=== PATIENT | female | born 1950 | race Caucasian/White ===

== ENCOUNTER 2017-09-19 12:32 | Emergency (ER) | payer MEDICARE, SELFPAY | END 2017-09-19 14:16 | disposition home or self-care (01) | PROVIDERS: Emergency Provider Nurse Practitioner; Family Provider Family Medicine; Visit Provider Nurse Practitioner | DX: M25.562 Pain in left knee (principal) | CPT/HCPCS: 73562; 96372; 99201 ==

== ENCOUNTER 2020-08-10 09:46 | Emergency (ER) | payer MEDICARE, SELFPAY ==
[2020-08-10 10:30] VITALS: BP 141/76; PULSE 84; RESP 18; TEMP 36.8; O2SAT 98; BMI 35.3
--- NOTE | 2020-08-10 10:48 | HMH.EDUTC ---
[facility] Disposition Clinical Impression: Exposure to COVID-19 virus Disposition: Home, Self-Care Condition on Discharge: Good Instructions: Preventing the Spread of Coronavirus Discharge Instructions Additional Instructions: Drink plenty of fluids. Take tylenol for pain or fever. Return if you begin to have difficulty breathing. Follow up with your regular doctor. GO TO THE ER FOR ANY WORSENING SYMPTOMS Referrals: Uche Shelton MD [Primary Care Provider] - Time of Disposition: 10:49 Medical Decision Making - Medical Records Medical records reviewed: No: I reviewed the patient's medical records. - Lakhwinder Inquiry Pt receiving controlled substance: No Vital Signs: 08/10/20 10:30 08/10/20 10:58 Temperature 98.2 F 98.2 F Temperature Source Oral Pulse Rate 84 Pulse Rate [Right Brachial] 84 Respiratory Rate 18 18 Blood Pressure 141/76 H Blood Pressure [Right Arm] 141/76 H Blood Pressure Mean [Right Arm] 97 Blood Pressure Source [Right Arm] Automatic Cuff Blood Pressure Position [Right Arm] Sitting 02 Sat by Pulse Oximetry 98 Oxygen Delivery Method Room Air Orders (Tests/Meds): ORDERS Category Date Time Status Covid-19 Nasal PCR ([facility]) Routine Lab 08/10/20 10:35 Ordered [facility] HPI - General Stated complaint: wants covid test Time Seen by Provider: 08/10/20 10:35 - History of Present Illness Provider Complaint: She is here wanting a covid test. She denies any exposure or symptoms, but her kids wanted him to be tested. - Related Data Allergies Allergy/AdvReac Type Severity Reaction Status Date / Time Sulfa (Sulfonamide Allergy Verified 08/10/20 10:56 Antibiotics) [facility] History - Hepatitis A Screen Attestation statement:: This patient has been screened for Hepatitis A risk factors. I have reviewed the patient's past medical history: Yes ROS Obtained: Yes All systems reviewed & no additional complaints - Constitutional Constitutional: Reports system reviewed and no additional complaints, except as docu - Eyes Eyes: Reports system reviewed and no additional complaints, except as docu - ENT Ears, Nose, Mouth, and Throat: Reports system reviewed and no additional complaints, except as docu - Cardiovascular Cardiovascular: Reports system reviewed and no additional complaints, except as docu - Respiratory Respiratory: Yes system reviewed and no additional complaints, except as docu - Gastrointestinal Gastrointestingal: Reports: system reviewed and no additional complaints, except as docu Physical Exam - General General appearance: alert, in no apparent distress - Head Head exam: atraumatic, normocephalic, normal inspection - Eye Eye exam: Present: normal appearance, PERRL, EOMI - ENT ENT exam: Present: normal exam, normal oropharynx, mucous membranes moist, TM's normal bilaterally, normal external ear exam - Neck Neck exam: Present: normal inspection, full ROM, trachea midline. Absent: meningismus, lymphadenopathy - Chest Chest inspection: Present: normal inspection, symmetric chest wall rise. Absent: tenderness - Respiratory Respiratory exam: Present: normal lung sounds bilaterally. Absent: respiratory distress - Cardiovascular Cardiovascular exam: Present: regular rate, normal rhythm. Absent: JVD - Abdominal Exam Abdominal exam: Present: soft, normal bowel sounds. Absent: distention, tenderness, guarding - Extremities Exam Extremities exam: Present: normal inspection, full ROM, normal capillary refill. Absent: calf tenderness - Back Exam Back exam: Present: normal inspection. Absent: tenderness - Neurological Exam Neurological exam: Present: alert, oriented X3 - Psychiatric Psychiatric exam: Present: normal affect, normal mood - Skin Skin exam: Present: warm, dry, intact, normal color - Lymphatic Lymphatic Findings: no adenopathy
[2020-08-10 10:58] VITALS: BP 141/76; PULSE 84; RESP 18; TEMP 36.8; O2SAT 98
== END 2020-08-10 11:00 | disposition home or self-care (01) ==
PROVIDERS: Emergency Provider Nurse Practitioner Family; PCP Family Medicine
DX: Z20.828 Contact with and (suspected) exposure to other viral communicable diseases (principal); Z88.2 Allergy status to sulfonamides
CPT/HCPCS: 99201; U0003

== ENCOUNTER → 2021-06-18 12:54 | Outpatient (CLI) | payer MEDICARE, SELFPAY ==
[2021-06-18 15:29] LABS: Basophils % 0.4 % (0.1-2.0); Eosinophils # 0.1 K/mm3 (0.0-0.4); Eosinophils % 1.4 % (0.1-12.0); Hematocrit 47.2 % (37.0-47.0); Hemoglobin 15.3 g/dL (12.2-16.2); Lymphocytes # 1.7 K/mm3 (0.7-4.5); Lymphocytes % 26.4 % (10-50); Mean Corpuscular HGB Conc 32.3 g/dL (31.8-35.4); Mean Corpuscular Hemoglobin 30.1 pg (27.0-31.2); Mean Corpuscular Volume 93.1 fl (81-99); Mean Platelet Volume 9.2 fl (7.4-10.4); Monocytes # 0.3 K/mm3 (0.1-1.0); Monocytes % 4.4 % (1.7-9.3); Neutrophils # 4.4 K/mm3 (1.8-7.8); Neutrophils % 67.3 % (37.0-80.0); Platelet Count 281 K/mm3 (142-424); Red Blood Count 5.07 M/mm3 (4.20-5.40); Red Cell Distribution Width 13.7 % (11.5-17.5); White Blood Count 6.6 K/mm3 (4.8-10.8)
[2021-06-18 15:47] LABS: Alanine Aminotransferase 36 U/L (12-78); Albumin Level 4.7 g/dl (3.5-5.0); Albumin/Globulin Ratio 1.2 (1.1-1.8); Alkaline Phosphatase 68 U/L (38-126); Anion Gap 15.2 mEq/L (5-15); Aspartate Amino Transferase 41 U/L (14-36); Bilirubin,Total 0.7 mg/dl (0.2-1.3); Blood Urea Nitrogen 15 mg/dl (7-17); Calcium 9.5 mg/dl (8.4-10.2); Carbon Dioxide 26 mmol/L (22.0-30.0); Chloride 105 mmol/L (98-107); Chol/HDL Ratio 4.4 (1-3.5); Cholesterol 189 mg/dl (140-200); Estimated Glomerular Filt Rate 71 ml/min (>60); GFR (African American) 86 ML/MIN (>60); Globulin 3.8 g/dL (1.3-3.2); Glucose 155 mg/dl (74-100); HDL Cholesterol 43 mg/dl (40-60); Potassium 4.2 mmoL/L (3.5-5.1); Sodium 142 mmol/L (136-145); Total Protein,Serum 8.5 g/dl (6.3-8.2); Triglycerides 141 mg/dl (30-150); VLDL Cholesterol 28 mg/dL (0-40)
[2021-06-18 15:58] LABS: Direct LDL Cholesterol 120.62 mg/dL (100-129)
[2021-06-18 16:04] LABS: T4 (Thyroxine) 9.4 ug/dl (5.53-11.0)
[2021-06-18 16:18] LABS: Thyroid Stimulating Hormone 3.46 uIU/mL (0.465-4.68)
== END ==
PROVIDERS: Visit Provider Family Medicine
DX: I10 Essential (primary) hypertension (principal); Z79.899 Other long term (current) drug therapy
CPT/HCPCS: 80053; 80061; 84436; 84443; 85025

== ENCOUNTER → 2021-06-25 14:01 | Outpatient (CLI) | payer MEDICARE, SELFPAY ==
[2021-06-25 14:47] LABS: Hemoglobin A1C 6.5 % (4.0-6.0)
== END ==
PROVIDERS: Visit Provider Family Medicine
DX: E11.9 Type 2 diabetes mellitus without complications (principal)
CPT/HCPCS: 83036

== ENCOUNTER → 2021-08-23 09:35 | Outpatient (CLI) | payer MEDICARE, SELFPAY ==
--- NOTE | 2021-08-23 09:39 | XR_ITS ---
PROCEDURE: XR CHEST 2V CLINICAL HISTORY: cough COMPARISON: No exams were available for comparison FINDINGS: The cardiomediastinal silhouette and pulmonary vascularity are within normal limits. The lungs are clear without infiltrates, suspicious nodules, or pleural effusions. Calcified granuloma right lower lobe superior segment. Minimal atelectatic or fibrotic change in the left mid to lower lung zone. Mild degenerative change thoracic spine IMPRESSION: No acute findings. Dictated by: Chino Naqvi MD 08/23/2021 13:21 Chino Naqvi MD in [place] 08/23/2021 13:21
== END ==
PROVIDERS: PCP Family Medicine; Visit Provider Family Medicine
DX: R05.9 Cough, unspecified (principal)
CPT/HCPCS: 71046

== ENCOUNTER → 2021-11-20 13:18 | Outpatient (CLI) | payer MEDICARE, SELFPAY ==
--- NOTE | 2021-11-20 13:19 | MM_ITS ---
PROCEDURE INFORMATION: Exam: Bilateral Screening 3D Mammography Exam date and time: 11/20/2021 1:19 PM Age: 71 years old Clinical indication: Screening mammogram TECHNIQUE: Imaging protocol: Bilateral Screening tomosynthesis and 2D mammography including computer-aided detection (CAD) when performed. COMPARISON: No relevant prior studies available. FINDINGS: MAMMOGRAPHY: Breast composition: The breast tissue is heterogeneously dense, which may obscure small masses. Mass: None. Architectural distortion: No new or suspicious architectural distortion. Calcifications: No new or suspicious calcifications are present Asymmetric density: Focal asymmetry within the middle 1/3 upper outer right breast should be further assessed with spot views in CC/MLO full lateral projection to confirm and further characterize. Ultrasound should also be performed. Skin thickening: None. Axillary adenopathy: None. IMPRESSION: Focal asymmetry within the middle 1/3 upper outer right breast should be further assessed with spot views in CC/MLO full lateral projection to confirm and further characterize. Ultrasound should also be performed. ASSESSMENT: BI-RADS category 0: Incomplete-need additional imaging evaluation and/or prior mammograms for comparison.
== END ==
PROVIDERS: PCP Family Medicine; Visit Provider Family Medicine
DX: Z12.31 Encounter for screening mammogram for malignant neoplasm of breast (principal)
CPT/HCPCS: 77063; 77067

== ENCOUNTER → 2021-12-05 14:30 | Outpatient (CLI) | payer MEDICARE, SELFPAY ==
--- NOTE | 2021-12-05 14:30 | US_ITS ---
PROCEDURE INFORMATION: Exam: US Right Breast, Complete MG Right Diagnostic Breast Tomosynthesis Exam date and time: 12/05/2021 2:31 PM Age: 71 years old Clinical indication: Patient recalled for further evaluation of right tissue asymmetry TECHNIQUE: Imaging protocol: Complete ultrasound of all four quadrants of the Right breast and the retroareolar regions, including ultrasound of the axilla when performed. Right Diagnostic tomosynthesis and 2D mammography including computer-aided detection (CAD) when performed. Unilateral or bilateral exam. COMPARISON: MG MM DIG SCREENING MAMM BI W/CAD 11/20/2021 1:16 PM FINDINGS: MAMMOGRAPHY: Digital diagnostic spot compression views of the right breast demonstrate normal overlapping fibroglandular structures without persistent mass or asymmetry identified. ULTRASOUND: Sonographic images of the right breast including the retroareolar region, all 4 quadrants and the axilla do not demonstrate any solid or cystic masses. No architectural distortion or acoustical shadowing. No skin thickening or axillary adenopathy. IMPRESSION: No mammographic or sonographic evidence of malignancy. Annual bilateral mammographic screening is recommended unless otherwise clinically indicated. ASSESSMENT: Assessment: BI-RADS Category 1: Negative
== END ==
PROVIDERS: PCP Family Medicine; Visit Provider Family Medicine
DX: R92.8 Other abnormal and inconclusive findings on diagnostic imaging of breast (principal)
CPT/HCPCS: 76641; 77061; 77065; G0279

== ENCOUNTER → 2022-06-24 13:29 | Outpatient (CLI) | payer MEDICARE, SELFPAY ==
[2022-06-24 16:05] LABS: Hemoglobin A1C 5.9 % (4.0-6.0)
== END ==
PROVIDERS: PCP Family Medicine; Visit Provider Family Medicine
DX: R73.09 Other abnormal glucose (principal)
CPT/HCPCS: 83036

== ENCOUNTER → 2023-01-20 14:36 | Outpatient (CLI) | payer MEDICARE, SELFPAY ==
[2023-01-20 14:11] LABS: Basophils % 0.4 % (0.1-2.0); Eosinophils # 0.3 K/mm3 (0.0-0.4); Eosinophils % 2.7 % (0.1-12.0); Hemoglobin 14.7 g/dL (12.2-16.2); Lymphocytes # 2.6 K/mm3 (0.7-4.5); Lymphocytes % 24.1 % (10-50); Mean Corpuscular HGB Conc 32.6 g/dL (31.8-35.4); Mean Corpuscular Hemoglobin 29.5 pg (27.0-31.2); Mean Corpuscular Volume 90.3 fl (81-99); Mean Platelet Volume 8.7 fl (7.4-10.4); Monocytes # 0.5 K/mm3 (0.1-1.0); Monocytes % 4.3 % (1.7-9.3); Neutrophils # 7.5 K/mm3 (1.8-7.8); Neutrophils % 68.5 % (37.0-80.0); Platelet Count 297 K/mm3 (142-424); Red Blood Count 4.98 M/mm3 (4.20-5.40); Red Cell Distribution Width 13.6 % (11.5-17.5)
[2023-01-20 14:23] LABS: Chloride 94 mmol/L (98-107); Potassium 3.9 mmoL/L (3.5-5.1); Sodium 138 mmol/L (136-145)
[2023-01-20 14:26] LABS: Alanine Aminotransferase 22 U/L (12-78); Albumin Level 4.1 g/dl (3.5-5.0); Albumin/Globulin Ratio 1.3 (1.1-1.8); Alkaline Phosphatase 73 U/L (38-126); Anion Gap 17.9 mEq/L (5-15); Aspartate Amino Transferase 27 U/L (14-36); Bilirubin,Total 0.6 mg/dl (0.2-1.3); Blood Urea Nitrogen 25 mg/dl (7-17); Calcium 8.9 mg/dl (8.4-10.2); Carbon Dioxide 30 mmol/L (22.0-30.0); Estimated Glomerular Filt Rate 55 ml/min (>60); GFR (African American) 66 ML/MIN (>60); Globulin 3.2 g/dL (1.3-3.2); Glucose 154 mg/dl (74-100); Total Protein,Serum 7.3 g/dl (6.3-8.2)
[2023-01-20 14:52] LABS: Thyroid Stimulating Hormone 4.35 uIU/mL (0.465-4.68)
== END ==
PROVIDERS: PCP Family Medicine; Visit Provider Family Medicine
DX: I10 Essential (primary) hypertension (principal); M15.4 Erosive (osteo)arthritis; Z20.828 Contact with and (suspected) exposure to other viral communicable diseases; Z79.899 Other long term (current) drug therapy
CPT/HCPCS: 80053; 84443; 85025

== ENCOUNTER → 2023-02-02 08:25 | Outpatient (CLI) | payer MEDICARE, SELFPAY ==
--- NOTE | 2023-02-02 08:28 | XR_ITS ---
FINAL REPORT CLINICAL HISTORY: neck pain FINDINGS: CERVICAL SPINE Five views were obtained. There is no acute fracture. There is no malalignment. There are moderate degenerative changes. There is moderate right neural foraminal narrowing at C5-C6 and C6-C7. There is mild left neural foraminal narrowing at C5-C6. IMPRESSION: Moderate degenerative change with areas of neural foraminal narrowing. Reviewed, Interpreted and Dictated by Erich Reid III, MD Transcribed by Jovani Vegas Authenticated and [facility]
--- NOTE | 2023-02-02 08:28 | MM_ITS ---
PROCEDURE INFORMATION: Exam: MG Bilateral Screening 3D Mammography Exam date and time: 02/02/2023 8:35 AM Age: 72 years old Clinical indication: Screening examination TECHNIQUE: Imaging protocol: Bilateral Screening tomosynthesis and 2D mammography including computer-aided detection (CAD) when performed. COMPARISON: 1. MG MM DIG MAMM DX UNILAT RT CAD 12/05/2021 2:31 PM 2. MG MM DIG SCREENING MAMM BI W/CAD 11/20/2021 1:16 PM 3. US BREAST RT COMPLETE 12/05/2021 2:42 PM FINDINGS: MAMMOGRAPHY: Breast composition: There are scattered areas of fibroglandular density. Mass: No suspicious masses. Architectural distortion: No suspicious distortion. Calcifications: No suspicious calcifications. Asymmetric density: None. Skin thickening: None. Axillary adenopathy: None. IMPRESSION: No mammographic evidence of malignancy. Annual screening is recommended unless otherwise clinically indicated. ASSESSMENT: BI-RADS Category 1: Negative
--- NOTE | 2023-02-02 08:28 | XR_ITS ---
FINAL REPORT TECHNIQUE: Bone mineral density was calculated of the lumbar spine and hip. CLINICAL HISTORY: osteoporosis FINDINGS: Using L1-4, the bone mineral density of the spine is 1.137 g/cm2, corresponding to T-score of 0.8. This may be falsely elevated secondary to hypertrophic changes. Using the left hip, the bone mineral density of the femoral neck is 0.923 g/cm2, corresponding to a T-score of 0.7. Using the 1/3 radius, the bone mineral density is 0.611 g/cm2, corresponding to a T-score of -1.4 NOTE: T-score: Standard deviation compared with peak bone mass of young adult mean. *Following the recommendations of the International Society of Bone densitometry, classification of hip BMD is based on the lower of two T-scores; total hip or femoral neck. IMPRESSION: Findings consistent with low bone density. FRAX was not reported because some of the T-scores are at or above -1.0 Reviewed, Interpreted and Dictated by Erich Reid III, MD Transcribed by Liz Munoz Authenticated and [facility]
== END ==
PROVIDERS: PCP Family Medicine; Visit Provider Family Medicine
DX: Z12.31 Encounter for screening mammogram for malignant neoplasm of breast (principal); M81.0 Age-related osteoporosis without current pathological fracture; M54.2 Cervicalgia
CPT/HCPCS: 72050; 77063; 77067; 77080

== ENCOUNTER → 2023-07-20 08:40 | Outpatient (CLI) | payer MEDICARE, SELFPAY ==
[2023-07-20 21:10] LABS: Alanine Aminotransferase 17 U/L (12-78); Albumin Level 4.5 g/dl (3.5-5.0); Albumin/Globulin Ratio 1.3 (1.1-1.8); Alkaline Phosphatase 65 U/L (38-126); Anion Gap 17.5 mEq/L (5-15); Aspartate Amino Transferase 27 U/L (14-36); Bilirubin,Total 0.5 mg/dl (0.2-1.3); Blood Urea Nitrogen 18 mg/dl (7-17); Calcium 9.7 mg/dl (8.4-10.2); Carbon Dioxide 28 mmol/L (22.0-30.0); Chloride 100 mmol/L (98-107); Estimated Glomerular Filt Rate 44 ml/min (>60); GFR (African American) 54 ML/MIN (>60); Globulin 3.5 g/dL (1.3-3.2); Glucose 130 mg/dl (74-100); Potassium 4.5 mmoL/L (3.5-5.1); Sodium 141 mmol/L (136-145)
[2023-07-20 21:34] LABS: Basophils # 0.1 K/mm3 (0-0.2); Basophils % 0.6 % (0.1-2.0); Eosinophils # 0.3 K/mm3 (0.0-0.4); Eosinophils % 3.3 % (0.1-12.0); Hematocrit 40.6 % (37.0-47.0); Lymphocytes # 2.1 K/mm3 (0.7-4.5); Mean Corpuscular HGB Conc 34.4 g/dL (31.8-35.4); Mean Corpuscular Hemoglobin 31.3 pg (27.0-31.2); Mean Corpuscular Volume 91.1 fl (81-99); Mean Platelet Volume 9.6 fl (7.4-10.4); Monocytes # 0.4 K/mm3 (0.1-1.0); Monocytes % 4.6 % (1.7-9.3); Neutrophils # 5.8 K/mm3 (1.8-7.8); Neutrophils % 67.6 % (37.0-80.0); Platelet Count 253 K/mm3 (142-424); Red Blood Count 4.45 M/mm3 (4.20-5.40); Red Cell Distribution Width 13.5 % (11.5-17.5); White Blood Count 8.6 K/mm3 (4.8-10.8)
[2023-07-20 21:41] LABS: Thyroid Stimulating Hormone 3.63 uIU/mL (0.465-4.68)
[2023-07-20 22:06] LABS: Hemoglobin A1C 5.9 % (4.0-6.0)
== END ==
PROVIDERS: PCP Internal Medicine; Visit Provider Internal Medicine
DX: R53.83 Other fatigue (principal); E11.9 Type 2 diabetes mellitus without complications; E55.9 Vitamin D deficiency, unspecified; Z20.828 Contact with and (suspected) exposure to other viral communicable diseases; Z79.899 Other long term (current) drug therapy
CPT/HCPCS: 80053; 82306; 83036; 84443; 85025

== ENCOUNTER → 2023-09-18 11:02 | Outpatient (CLI) | payer MEDICARE, SELFPAY ==
[2023-09-18 11:13] LABS: Microscopic, Urine URINE MICROSCOPIC (MICROSCOPIC)
[2023-09-18 11:30] LABS: Appearance,Urine CLEAR (Clear); Bilirubin,Urine Negative (Negative); Blood, Urine Negative (Negative); Color,Urine YELLOW (Yellow); Glucose,Urine (UA) Negative (Negative); Ketones,Urine Negative (Negative); Leukocyte Esterase,Urine 1+ (Negative); Nitrate,Urine Negative (Negative); Protein,Urine Negative (Negative); Urobilinogen,Urine 0.2 EU/dl (0.2)
[2023-09-18 11:40] LABS: Creatinine,Urine Random 118 mg/dL (Not Estab.); Total Protein,Urine Random < 5.0 mg/dL (0.0-12.0)
[2023-09-18 11:43] LABS: Microalbumin/Creatinine Ratio 8.2
[2023-09-18 11:53] LABS: Bacteria,Urine 2+ /lpf
[2023-09-18 12:06] LABS: Carbon Dioxide 26 mmol/L (22.0-30.0); Chloride 103 mmol/L (98-107)
[2023-09-18 12:07] LABS: Glucose 163 mg/dl (74-100)
[2023-09-18 12:08] LABS: Anion Gap 14.8 mEq/L (5-15); Blood Urea Nitrogen 20 mg/dl (7-17); Calcium 8.9 mg/dl (8.4-10.2); Estimated Glomerular Filt Rate 49 ml/min (>60); GFR (African American) 59 ML/MIN (>60); Potassium 4.8 mmoL/L (3.5-5.1); Sodium 139 mmol/L (136-145)
== END ==
PROVIDERS: PCP Internal Medicine; Visit Provider Internal Medicine Nephrology
DX: N28.9 Disorder of kidney and ureter, unspecified (principal); B96.29 Other Escherichia coli [E. coli] as the cause of diseases classified elsewhere
CPT/HCPCS: 36415; 80048; 81001; 82043; 82570; 84155; 87086

== ENCOUNTER 2023-10-08 09:00 | Outpatient (RCR) | payer MEDICARE, SELFPAY ==
--- NOTE | 2023-08-06 14:52 | HMH.PTOPEV ---
PT Outpatient Evaluation Rehab PT Outpatient Evaluation Start: 08/06/23 13:57 Freq: Status: Active Protocol: Document 08/06/23 13:57 RUBYMERLE (Rec: 08/06/23 14:52 SOL [id number]) E-signed By Staci Dutton, PT Outpatient Therapy Subjective History Subjective History Pt is a 72 y/o female who reports insidious onset of right-sided neck pain in January without known trauma or injury . Pt reports pain on the right side of her head to the base of her skull. Pt reports initially pain would come and go but it is now constant. Pt denies distal symptoms into her UE or numbness/tingling. Pt had a cervical spine xray at [facility] on 02/02/23 with impression of There is no acute fracture. There is no malalignment. There are moderate degenerative changes. There is moderate right neural foraminal narrowing at C5-C6 and C6-C7. There is mild left neural foraminal narrowing at C5-C6. Pt reports pain is aggravated by turning her head to the right, looking down and prolonged sitting/standing.Pt reports infrequent occipital headaches that are mild in nature. Pt denies light/noise sensitivity , dizziness or nausea/vomiting . Medical History: Osteoporosis, Hypertension, Pre-diabetes New diagnosis of cancer in past 12 No months? Chief Complaint Pain Symptom Type Sharp Symptoms Relieved By Rest/Positioning,Heat,Ice Symptoms Aggravated By Sitting,Standing,Physical Activity Prior Functional Limitations None Current Functional Limitations Desk Work/Reading,Driving, Sleeping,Standing,Sitting Symptom Description Constant but Variable Level of pain today (0-10) 6 Pain scale - at its best (0-10) 4 Pain scale - at its worst (0-10) 10 Cervical Eval Palpation Cervical Muscles R Cervical Paraspinal,R Upper Trapezius Cervical/Thoracic Palpation Findings Tenderness Posture Head/C-Spine Posture Sitting Position Flexed Head/C-Spine Posture Standing Position Flexed Flexibility Deficits Upper Trapezius Muscle Length (R) Mild Tightness,(L) Mild Tightness Levaetor Scapulae Muscle Length (R) Mild Tightness,(L) Mild Tightness Passive Joint Mobility Cervical PIVM Dec: R C5/6 L C5/6 R C6/7 L C6/7 R C7/T1 L C7/T1 AROM Cervical Spine Extension Active Range of 45 Motion (degrees) Cervical Spine Flexion Active Range of 45 Motion (degrees) Cervical Spine Right Lateral Flexion 40 Active Range of Motion (degrees) Cervical Spine Left Lateral Flexion 50 Active Range of Motion (degrees) Cervical Spine Right Rotation Active 40 Range of Motion (degrees) Cervical Spine Left Rotation Active 50 Range of Motion (degrees) MMT Bilateral Deltoid (C5) 5 Normal Biceps Brachii Strength Grade 5 Normal Wrist Extension Strength Grade 5 Normal Triceps Brachii Strength Grade 5 Normal Wrist Flexion Strength Grade 5 Normal Extensor Pollicis Longus Strength Grade 5 Normal Finger Abduction Strength Grade 5 Normal Altered Sensation Comment equal and intact to light touch sensation Special Test C-Spine Foraminal Compression ([place]) Positive Right Test C-spine Verterbral Accessory Movements Central P/A [place],Right P/A that Elicit Symptoms [place] C-Spine Compression Test Negative Left,Negative Right Shoulder/Elbow Eval Shoulder Objective Measurements Shoulder MMT Bilateral Lower Trapezius Strength Grade 4- Good- Middle Trapezius Strength Grade 4- Good- Rhomboids Strength Grade 4- Good- Elbow Objective Measurements Neck Disability Index Neck Disability Index Section 1: Pain Intensity The pain is fairly severe at the moment Section 2: Personal Care (washing, I can look after myself dressing, etc.) normally but it causes extra pain Section 3: Lifting I can only lift very light weights Section 4: Reading I can read as much as I want to with slight pain in my neck Section 5: Headaches I have slight headaches, which come infrequently Section 6: Concentration I can concentrate fully when I want to with slight difficulty Section 7: Work I can do most of my usual work , but no more Section 8: Driving I can drive my car as long as I want with slight pain in my neck Section 9: Sleeping My sleep is midly disturbed (1 -2 hrs sleepless) Section 10: Recreation I am able to engage in a few of my usual recreation activities because NDI Score 19 Outpatient Therapy Assessment Impairments Problems/Impairmments Palpation Tenderness,Impaired Range of Motion,Impaired Strength,Subjective C/O Pain, Impaired Self Care/Self Management Prognosis Rehab Potential Good Clinical Impression Consistent with Diagnosis Yes Short Term Goals Number of Weeks 3 Increase Range of Motion Yes: Improve cervical rot AROM by at least 5 degrees Decrease Subjective C/O Pain Yes: Improve pain at worst to 8/10 to improve overall QOL Patient to be Ind w/ HEP Yes Relay Engineer Goals Number of Weeks 6 Decreased Palpation Tenderness Yes: 09/24 TTP of C5-C7 SP/PS Increase Range of Motion Yes: Improve cervical LF & rotation to WFL Increase Strength Yes: Improve scap strength to 4-4+/5 to assist with function & posture Increase Ability to Stand Yes Return to Recreational Activities Yes: Pt will report ability to craft with pain 6/10 or less Improve Neck Disability Index Score Yes: Improve score to 14 or less to impove overall QOL Decrease Subjective C/O Pain Yes: Improve pain at worst to 6/10 to improve overall QOL Patient to be Ind w/ Advanced HEP Yes Outpatient Therapy Plan of Care Treatment Plan May Include Therapeutic Exercise Including Home Yes Exercise Program Manual Therapy Techniques Yes Neuromuscular Re-education Yes Therapeutic Activities to Return to Yes Previous Functional/Work Level ADL/Self Care Education Yes Mechanical Traction Yes Dry Needling Yes Thermal Modalities Yes Electrical Stimulation Yes Ultrasound/Phonophoresis Yes Iontophoresis Yes Massage Yes Group Therapy for Medicare Yes Eval/Re-Eval Yes Frequency Times per week 2 Duration Number of Weeks 4-6 Addendums This patient is a candidate for social No or vocational rehab? Patient/Guardian verbally acknowledges Yes understanding of treatment program and consents to further treatment? Patient/Guardian verbally acknowledges Yes understanding of diagnosis, prognosis and goals for treatment? Eval Complexity PT Charges 32948 - Low Complexity PHYSICIAN CERTIFICATION: I certify the specified therapy services for Sofie Munson are required, authorized, and reviewed every 30 days.
--- NOTE | 2023-09-08 15:23 | HMH.RHREAS ---
Rehab Reassessment Rehab OP Re-assessment Start: 08/06/23 13:57 Freq: Status: Active Protocol: Document 09/08/23 14:01 SOL (Rec: 09/08/23 15:23 SOL [id number]) E-signed By Staci Dutton PT Neck Disability Index Neck Disability Index Section 1: Pain Intensity The pain is moderate at the moment Section 2: Personal Care (washing, I can look after myself dressing, etc.) normally without causing extra pain Section 3: Lifting Pain prevents me lifting heavy weights off the floor, but I can manage Section 4: Reading I can't read as much as I want because of moderate pain in my neck Section 5: Headaches I have no headaches at all Section 6: Concentration I can concentrate fully when I want to with slight difficulty Section 7: Work I can do most of my usual work , but no more Section 8: Driving I can drive my car as long as I want with slight pain in my neck Section 9: Sleeping I have no trouble sleeping Section 10: Recreation I am able to engage in all my recreation activities with some pain in NDI Score 12 Rehab Re-assessment Subjective Subjective Pt reports her neck feels 60% improved since starting PT. Pt reports she still has right- sided neck pain when she turns her head to the right and when she looks up. Pt reports pain at worst within the last week as 8/10 on VAS scale. Pt reports headaches have improved and she has not had one in awhile. Pt denies numbness/tingling of the UE. Pt reports compliance with HEP . Objective Objective Notes TTP: R upper trapezius, R levator scapular, R SCM, C5-6, C6-7 Cervical AROM: flex 45 (p!), ext 45, RLF 45 (p!), LLF 50, Rrot 50, Lrot 60 Assessment Progress Assessment Progressing as Expected Assessment Notes Pt has attended 6 PT visits consisting of aerobic exercise , cervical mobility, cervical stretching/strengthening, postural reeducation, manual therapy and modalities with good tolerance. Pt demonstrated improved cervical AROM and NDI score this date compared to the initial evaluation. Pt continues to report cervical pain with extension and right rotation AROM.Pt would continue to benefit from skilled PT to further improve subjective report of pain, cervical AROM, posture, scapular strength, and functional activity tolerance to improve overall QOL. Patient goals met ST/3 Goals Not Met LTG Revised Goals n/a Plan Plan Continue initial POC Frequency of Therapy 2x/week Duration of therapy 4 more weeks Time and Billing Re-Eval Time 12 Re-Eval Billing Units 1 PHYSICIAN CERTIFICATION: I certify the specified therapy services for Sofie Munson are required, authorized, and reviewed every 30 days.
--- NOTE | 2023-10-08 10:53 | HMH.RHREAS ---
Rehab Reassessment Rehab OP Re-assessment Start: 08/06/23 13:57 Freq: Status: Active Protocol: Document 10/08/23 10:31 SOL (Rec: 10/08/23 10:53 SOL [id number]) E-signed By Staci Dutton PT Neck Disability Index Neck Disability Index Section 1: Pain Intensity The pain is moderate at the moment Section 2: Personal Care (washing, I can look after myself dressing, etc.) normally but it causes extra pain Section 3: Lifting I can lift heavy weights but it gives extra pain Section 4: Reading I can read as much as I want with moderate pain in my neck Section 5: Headaches I have slight headaches, which come infrequently Section 6: Concentration I can concentrate fully when I want to with no difficulty Section 7: Work I can only do my usual work, but no more Section 8: Driving I can drive my car as long as I want with slight pain in my neck Section 9: Sleeping I have no trouble sleeping Section 10: Recreation I am able to engage in all my recreation activities with some pain in NDI Score 10 Rehab Re-assessment Subjective Subjective Pt reports continued 60% improvement since starting PT overall. Pt reports continued pain of the right side of the neck that radiates behind her ear that is worse with cervical extension, right LF and B rotation. Pt reports her neck seems to hurt worse with prolonged standing. Pt reports pain is feeling a little better since last month with report of pain at worst as 3/10 on VAS scale. Pt reports compliance with HEP. Objective Objective Notes Palpation: R upper trapezius, R levator scapular, R SCM, C5- 6, C6-7 (2/4 TTP) Cervical AROM: flex 45, ext 45 (p! at 30), LLF 60, RLF 50 Scap strength: 4+/5 grossly to assist with posture/function Assessment Progress Assessment Progressing as Expected Assessment Notes Pt has attended 13 PT visits consisting of aerobic exercise , cervical mobility, cervical stretching, cervical/scapular strengthening, postural re- education, manual therapy and modalities with good tolerance . Pt demonstrated improved cervical AROM, scapular strength, and NDI score this date compared to the previous reassessment. Pt continues to demonstrate tenderness to palpation of the right-side of the cervical spine and musculature and report pain with prolonged standing and certain cervical movements. At this time, pt has met most PT goals and is appropriate to discharge to independent HEP to continue mobility, strengthening and postural exercises. Pt was encouraged to contact MD for further treatment options and possible cervical spine MRI due to continued report of pain with cervical movements and functional activities. Patient goals met LT Goals Not Met standing tolerance, tenderness to palpation Revised Goals n/a Plan Plan Discharge to independent HEP. Refer back to MD for further treatment options and cervical spine MRI. Time and Billing Re-Eval Time 10 Re-Eval Billing Units 1 PHYSICIAN CERTIFICATION: I certify the specified therapy services for Sofie Munson are required, authorized, and reviewed every 30 days.
== END 2023-10-08 10:00 | disposition home or self-care (01) ==
LOC: PT 09:00
PROVIDERS: PCP Internal Medicine; Visit Provider Internal Medicine
DX: M47.812 Spondylosis without myelopathy or radiculopathy, cervical region (principal)
CPT/HCPCS: 97010; 97014; 97035; 97110; 97140; 97163; 97164; G0283

== ENCOUNTER 2023-11-10 13:30 | Outpatient (CLI) | payer MEDICARE, SELFPAY ==
--- NOTE | 2023-11-10 13:30 | MR_ITS ---
FINAL REPORT CLINICAL HISTORY: neck pain. headache FINDINGS: Multi planar MR imaging was obtained of the cervical spine. There is abnormal decreased signal throughout the cervical discs. The vertebrae are of normal height. There is no malalignment. The cervical cord demonstrates normal signal and configuration. C2-C3: There is no evidence of significant disc bulge or protrusion. There is no significant facet hypertrophy. C3-C4: There is no evidence of significant disc bulge or protrusion. There is no significant facet hypertrophy. C4-C5: Mild diffuse disc bulge is present with mild bilateral neural foraminal narrowing. C5-C6: Moderate diffuse disc bulge and endplate hypertrophy are present. There is moderate spinal canal compromise and high-grade bilateral neural foraminal narrowing. C6-C7: Moderate diffuse disc bulge and endplate hypertrophy are present. There is moderate spinal canal compromise and high-grade bilateral neural foraminal narrowing. C7-T1: Mild to moderate diffuse disc bulge is present with moderate bilateral neural foraminal narrowing. IMPRESSION: Diffuse disc bulges at C5-6 and C6-7 with high-grade bilateral neural foraminal narrowing. Reviewed, Interpreted and Dictated by Jarrell Gordillo MD Transcribed by Liz Munoz Authenticated and [facility]
== END 2023-11-10 23:59 ==
LOC: RAD 13:30
PROVIDERS: PCP Internal Medicine; Visit Provider Internal Medicine
DX: M54.2 Cervicalgia (principal); R51.9 Headache, unspecified
CPT/HCPCS: 72141; 76376

== ENCOUNTER 2024-01-14 13:26 | Outpatient (CLI) | payer MEDICARE, SELFPAY ==
[2024-01-14 19:32] LABS: Alanine Aminotransferase 17 U/L (12-78); Albumin Level 4.2 g/dl (3.5-5.0); Albumin/Globulin Ratio 1.3 (1.1-1.8); Alkaline Phosphatase 57 U/L (38-126); Anion Gap 14.2 mEq/L (5-15); Aspartate Amino Transferase 21 U/L (14-36); Bilirubin,Total 0.9 mg/dl (0.2-1.3); Blood Urea Nitrogen 23 mg/dl (7-17); Calcium 9.7 mg/dl (8.4-10.2); Carbon Dioxide 31 mmol/L (22.0-30.0); Chloride 98 mmol/L (98-107); Chol/HDL Ratio 5.3 (1-3.5); Cholesterol 184 mg/dl (140-200); Estimated Glomerular Filt Rate 44 ml/min (>60); GFR (African American) 53 ML/MIN (>60); Globulin 3.3 g/dL (1.3-3.2); Glucose 150 mg/dl (74-100); HDL Cholesterol 35 mg/dl (40-60); Potassium 4.2 mmoL/L (3.5-5.1); Sodium 139 mmol/L (136-145); Total Protein,Serum 7.5 g/dl (6.3-8.2); Triglycerides 104 mg/dl (30-150); VLDL Cholesterol 21 mg/dL (0-40)
[2024-01-14 19:42] LABS: Direct LDL Cholesterol 117.37 mg/dL (100-129)
[2024-01-14 21:06] LABS: Hemoglobin A1C 6.1 % (4.0-6.0)
== END 2024-01-14 23:59 | disposition home or self-care (01) ==
LOC: LAB.DROPOF 01-15 13:26
PROVIDERS: PCP Internal Medicine; Visit Provider Internal Medicine
DX: E78.5 Hyperlipidemia, unspecified; R53.83 Other fatigue; R73.09 Other abnormal glucose; Z79.899 Other long term (current) drug therapy
CPT/HCPCS: 80053; 80061; 83036

== ENCOUNTER 2024-01-19 19:01 | Outpatient (CLI) | payer MEDICARE, SELFPAY ==
[2024-01-19 22:11] LABS: Creatinine,Urine Random 76 mg/dL (Not Estab.); Microalbumin < 6.000 mg/L (0-16.7)
== END 2024-01-19 23:59 | disposition home or self-care (01) ==
LOC: LAB.DROPOF 19:01
PROVIDERS: PCP Internal Medicine; Visit Provider Internal Medicine
DX: E11.9 Type 2 diabetes mellitus without complications (principal)
CPT/HCPCS: 82043; 82570

== ENCOUNTER 2024-02-24 13:48 | Outpatient (POV) | payer MEDICARE, SELFPAY ==
--- NOTE | 2024-02-24 15:34 | EXP.PAIN.OV ---
HPI Data of Consult Patient: new to practice Consult date: 02/24/24 Requesting Physician: Staci Perez APRN Primary Care Provider: Bob Weber DO Consult Narrative Reason for consult: Neck pain History of present illness: Ms. Munson is a 73 year old female who presents today as a new patient. She is a referral from Dr. Dewitt's office. Today she rates her pain a 3 out of 10 however states that will get worse as the day goes on. Patient states all of her pain is all throughout her neck and states it has been going on for over a year unrelated to any specific trauma or injury. Patient does describe this as an aching, stabbing sensation that is worse with increased activity or certain movements such as bending twisting. She does state that this interferes with her ability perform activities of daily living such as cooking or cleaning or even simple driving. Patient feels like she has to turn her whole body in order to look a certain direction due to the worsening pain. Patient did complete physical therapy just recently and stated it helped a little and that she has been better range of motion however it is still very limited turning to the right. Patient did also try yoga however felt like it did not do as well. Patient does have altered kidney function and cannot tolerate any NSAIDs. Patient has tried heat and ice and feels like the heat does better. Patient has also tried multiple topicals with minimal relief. Patient denies any prior neck surgery. Her Lakhwinder has been reviewed and is appropriate. CC: Staci Perez APRN [facility] Disclaimer: The information contained in this section may have been updated after the patient was seen, as this information can be updated by other users. Medical History Depression Sertraline is working here continue. Anxiety Patient is on sertraline and this appears to be working well for her. We will continue. Essential hypertension Blood pressure is doing well today. We will continue the hydrochlorothiazide, losartan, and metoprolol. Surgical History History of total right hip arthroplasty History of 2 sections Social History Smoking Status: Never smoker alcohol intake: never substance use type: denies use current occupational status: other Travel in the last 8 weeks: None household members: family housing: house Review of Systems Review of Systems Review of systems:: pertinent systems reviewed and negative unless documented below Review of systems (narrative): Review of Systems: General: No recent weight changes, no fever, no sleep disturbances Respiratory: No cough, no shortness of air, no recurring pulmonary infections Cardiovascular/peripheral vascular: No chest pain, no palpitations, no edema, no shortness of breath Gastrointestinal: No new onset incontinence, normal bowel movements reported Genitourinary: No new onset incontinence Musculoskeletal: Neck pain Psychiatric: [Normal mood/affect] Neurological: [Denies weakness in extremities], [denies balance issues] Meds Home Medications and Allergies Home Medications Medication Instructions Recorded Confirmed Type aspirin 81 mg tablet,delayed 81 mg PO DAILY 06/18/21 01/14/24 History release (Adult Aspirin Regimen) clobetasol 0.05 % topical cream 1 applic topical BID #30 grams 12/22/22 01/14/24 Rx sertraline 100 mg tablet See Rx Instructions .Route 07/07/23 01/14/24 Rx .COMPLEX #90 tabs famotidine 40 mg tablet See Rx Instructions .Route 12/21/23 01/14/24 Rx .COMPLEX #180 tabs hydrochlorothiazide 25 mg tablet See Rx Instructions .Route 12/21/23 01/14/24 Rx .COMPLEX #90 tabs losartan 100 mg tablet See Rx Instructions .Route 12/21/23 01/14/24 Rx .COMPLEX #90 tabs metoprolol succinate 100 mg See Rx Instructions .Route 12/21/23 01/14/24 Rx tablet,extended release 24 hr .COMPLEX #90 tabs amlodipine 10 mg tablet See Rx Instructions .Route 12/22/23 01/14/24 Rx .COMPLEX #90 tabs alendronate 70 mg tablet (Fosamax) 70 mg PO WEEKLY #12 tabs 01/14/24 01/14/24 Rx New Prescriptions to Start Prescriptions: Allergies Allergy/AdvReac Type Severity Reaction Status Date / Time Sulfa (Sulfonamide Allergy Verified 01/14/24 10:03 Antibiotics) lisinopril AdvReac Intermediate Cough Verified 01/14/24 10:03 Objective Narrative: Physical Exam: General: Alert and oriented x3, no acute distress, pleasant and cooperative Lungs: Respirations even and unlabored, symmetrical chest expansion Eyes: PERRL Musculoskeletal: Flexion and extension of cervical [spine] somewhat guarded secondary to pain, [antalgic gait noted] positive Kemps test Neurological: Speech clear, no gross sensory deficit Additional findings Additional findings: FINDINGS: Multi planar MR imaging was obtained of the cervical spine. There is abnormal decreased signal throughout the cervical discs. The vertebrae are of normal height. There is no malalignment. The cervical cord demonstrates normal signal and configuration. C2-C3: There is no evidence of significant disc bulge or protrusion. There is no significant facet hypertrophy. C3-C4: There is no evidence of significant disc bulge or protrusion. There is no significant facet hypertrophy. C4-C5: Mild diffuse disc bulge is present with mild bilateral neural foraminal narrowing. C5-C6: Moderate diffuse disc bulge and endplate hypertrophy are present. There is moderate spinal canal compromise and high-grade bilateral neural foraminal narrowing. C6-C7: Moderate diffuse disc bulge and endplate hypertrophy are present. There is moderate spinal canal compromise and high-grade bilateral neural foraminal narrowing. C7-T1: Mild to moderate diffuse disc bulge is present with moderate bilateral neural foraminal narrowing. IMPRESSION: Diffuse disc bulges at C5-6 and C6-7 with high-grade bilateral neural foraminal narrowing. Reviewed, Interpreted and Dictated by Jarrell Gordillo MD Transcribed by Liz Munoz Authenticated and . [facility] Assessment and Plan *Assessment and plan (1) Degenerative disc disease, cervical: Status: Acute Category: Medical Code(s): M50.30 - Other cervical disc degeneration, unspecified cervical region (2) Facet arthropathy, cervical: Status: Acute Category: Medical Code(s): M47.812 - Spondylosis without myelopathy or radiculopathy, cervical region Plan Patient is experiencing significant pain throughout her neck that is worse with bending, twisting or lifting. Patient did have limited range of motion of her cervical spine with a positive Kemps test. I have discussed with the patient that she may benefit from a cervical medial branch block. Risk and benefits were discussed with the patient and she would like to proceed forward with this plan of care. Patient is not on any blood thinners. I have also discussed with the patient that I will order a compounded cream for her. Patient will be scheduled for her first cervical medial branch block bilaterally C5-C6 and C6-C7 under fluoroscopy. Patient was counseled that if she does get significant relief with this injection we will look at doing it a second time and then possibly a RFA in the future. Patient is agreeable to this plan of care. Patient has tried and failed conservative therapies. Patient has been instructed to contact the clinic with any concerns before the next appointment. Dr. Ward has reviewed this note and agrees with this plan of care. This note was dictated using voice recognition software and make contain errors or omissions.
[2024-02-24 16:27] VITALS: BP 134/86; PULSE 79; RESP 18; O2SAT 94; BMI 35.8
== END 2024-02-24 23:59 | disposition home or self-care (01) ==
PROVIDERS: PCP Internal Medicine; Visit Provider Nurse Practitioner Family
DX: M50.322 Other cervical disc degeneration at C5-C6 level (principal); M47.892 Other spondylosis, cervical region
CPT/HCPCS: 99202; G0463

== ENCOUNTER 2024-03-09 08:27 | Outpatient (CLI) | payer MEDICARE, SELFPAY ==
--- NOTE | 2024-03-09 08:27 | MM_ITS ---
PROCEDURE INFORMATION: Exam: MG Bilateral Screening 3D Mammography Exam date and time: 03/09/2024 8:21 AM Age: 73 years old Clinical indication: Screening examination TECHNIQUE: Imaging protocol: Bilateral Screening tomosynthesis and 2D mammography including computer-aided detection (CAD) when performed. COMPARISON: 1. MG MM DIG SCREENING MAMM BI W/CAD 02/02/2023 8:35 AM 2. MG MM DIG MAMM DX UNILAT RT CAD 12/05/2021 2:31 PM FINDINGS: MAMMOGRAPHY: Breast composition: The breasts are heterogeneously dense, which may obscure small masses. Mass: None. Architectural distortion: None. Calcifications: No suspicious calcifications. Asymmetric density: None. Skin thickening: None. Axillary adenopathy: None. IMPRESSION: No mammographic evidence of malignancy. Annual screening is recommended unless otherwise clinically indicated. ASSESSMENT: BI-RADS Category 1: Negative
== END 2024-03-09 23:59 | disposition home or self-care (01) ==
LOC: RAD 08:27
PROVIDERS: PCP Internal Medicine; Visit Provider Internal Medicine
DX: Z12.31 Encounter for screening mammogram for malignant neoplasm of breast (principal)
CPT/HCPCS: 77063; 77067

== ENCOUNTER 2024-03-15 11:45 | Day surgery (SDC) | payer MEDICARE, SELFPAY ==
[2024-03-15 12:00] VITALS: BP 114/56; PULSE 69; RESP 16; TEMP 36.6; O2SAT 94; BMI 36.0
[2024-03-15] MEDS: methylPREDNISolone ACETATE 80MG/ML VIAL 80 MG (12:07)
[2024-03-15 12:08] VITALS: BP 131/47; PULSE 67; RESP 18; O2SAT 97
[2024-03-15] MEDS: LIDOCAINE 1% 5ML PF VIAL 5 ML (12:08)
[2024-03-15] MEDS: BUPIVACAINE 0.25% 10ML INJ 25 MG IJ (12:08)
[2024-03-15 12:09] VITALS: BP 131/47; PULSE 67; RESP 18; O2SAT 97
--- NOTE | 2024-03-15 12:10 | P.PCN_ITS ---
Procedure Date: 03/15/24 Time: 12:00 Anesthesiologist:: Satya Chong CRNA Complications:: None Pre-procedure Diagnosis:: Degenerative disc cervical spine multiple levels. Cervical radiculopathy. Disc bulge multilevel cervical spine. Post-procedure Diagnosis:: Same. Indications for Procedure:: Patient is a pleasant 73-year-old female comes our clinic today for medial branch blocks/facet injections at the cervical level C5-6, C6-7 bilaterally. Patient reports posterior cervical neck pain as well as difficulty with flexion, extension, left and right rotation of the cervical spine. She also reports some bilateral shoulder radicular symptoms at times. Patient also reports chronic h eadaches. Procedure Details:: Informed consent was obtained and the risk and benefits of the procedure was explained to the patient. Patient was taken to the procedure room where noninvasive monitors were placed, including noninvasive blood pressure cuff as well as pulse oximeter. The area over the posterior cervical spine was cleansed using chlorhexidine as a cleansing solution. I anesthetized the skin and subcutaneous tissues with 1% Lidocaine. I placed 25 -gauge spinal needles into the facet joint/ medial branches of C5-6, C6-7 bilaterally. Needle placement was confirmed with fluoroscopy. After confirmation of needle placement, each site was injected with 1 mL of 1% lidocaine and 0.25 % Marcaine and 10 mg of Depo- Medrol. A total of 20 mg of depo medrol was used for bilateral medial branch blocks of C5-6, C6-7 bilaterally. Patient tolerated the procedure without difficulty. There were no complications. Plan and Disposition:: Patient was discharged without incident.
[2024-03-15 12:30] VITALS: BP 109/40; PULSE 64; RESP 18; O2SAT 94
== END 2024-03-15 12:30 | disposition home or self-care (01) ==
PROVIDERS: PCP Internal Medicine; Visit Provider Nurse Anesthetist, Certified Registered
DX: M47.812 Spondylosis without myelopathy or radiculopathy, cervical region (principal)
CPT/HCPCS: 64490; 64491; J1010

== ENCOUNTER 2024-03-21 11:54 | Outpatient (CLI) | payer MEDICARE, SELFPAY ==
--- NOTE | 2024-03-21 12:02 | XR_ITS ---
FINAL REPORT CLINICAL HISTORY: cough, wheeze FINDINGS: 2 views of the chest were obtained . The heart is normal in size. The mediastinum is within normal limits. The lungs are clear. There is no pneumothorax. Osseous structures are unremarkable. IMPRESSION: No acute cardiopulmonary process. Reviewed, Interpreted and Dictated by Erich Reid III, MD Transcribed by Zonia Ocampo Authenticated and [facility]
[2024-03-21 18:38] LABS: Adenovirus,PCR Not Detected (NotDetected); Bordetella Pertussis Not Detected (NotDetected); Chlamydophila Pneumoniae, PCR Not Detected (NotDetected); Coronavirus 19, PCR Not Detected (NotDetected); Coronavirus 229E Not Detected (NotDetected); Coronavirus NL63 Not Detected (NotDetected); Coronavirus OC43 Not Detected (NotDetected); Coronovirus HKU1,PCR Not Detected (NotDetected); Human Metapneumovirus Not Detected (NotDetected); Influenza A, PCR Not Detected (NotDetected); Influenza AH1, 2009 Not Detected (NotDetected); Influenza AH1, PCR Not Detected (NotDetected); Influenza AH3,PCR Not Detected (NotDetected); Influenza B, PCR Not Detected (NotDetected); Mycoplasma Pneumoniae, PCR Not Detected (NotDetected); Parainfluenza 1, PCR Not Detected (NotDetected); Parainfluenza 2, PCR Not Detected (NotDetected); Parainfluenza 3, PCR Not Detected (NotDetected); Parainfluenza 4, PCR Not Detected (NotDetected); Respiratory Syncytial Virus Not Detected (NotDetected); Rhinovirus/Enterovirus Not Detected (NotDetected)
== END 2024-03-21 23:59 | disposition home or self-care (01) ==
LOC: LAB 11:57
PROVIDERS: PCP Internal Medicine; Visit Provider Family Medicine
DX: R05.9 Cough, unspecified (principal); R06.02 Shortness of breath
CPT/HCPCS: 71046; 87581; 87632; 87635; 87798

== ENCOUNTER 2024-04-07 15:17 | Outpatient (POV) | payer MEDICARE, SELFPAY ==
--- OUTSIDE RECORDS SUMMARY | 2024-04-07 15:20 | XMS_ITS ---
Author Name Jaylan Noble Address [address] [place] [id number] Organization Unknown Address [address] [place] [id number] ALLERGIES AND ADVERSE REACTIONS No information ASSESSMENT No information CHIEF COMPLAINT No information MEDICATIONS No information OBJECTIVE DATA No information PHYSICAL EXAMINATION No information TREATMENT PLAN Planned Care Start Date Provider Encounter for Check-up [id number] [facility] PROBLEMS No information RESULTS No information REVIEW OF SYSTEMS No information SUBJECTIVE DATA No information VITAL SIGNS No information
[2024-04-07 15:26] VITALS: BP 128/43; PULSE 70; RESP 16; O2SAT 96; BMI 35.4
--- NOTE | 2024-04-07 15:48 | EXP.PAIN.SOA ---
[facility] Disclaimer: The information contained in this section may have been updated after the patient was seen, as this information can be updated by other users. Medical History Depression Sertraline is working here continue. Anxiety Patient is on sertraline and this appears to be working well for her. We will continue. Essential hypertension Patient is taking amlodipine, losartan, metoprolol and hydrochlorothiazide. All of these together are helping with her hypertension. Blood pressure today was 128/70. Pressure in June was 112/64. Surgical History History of total right hip arthroplasty History of 2 sections Family History Other Unknown family medical history Social History Smoking Status: Never smoker alcohol intake: never substance use type: denies use current occupational status: retired Travel in the last 8 weeks: None household members: family housing: house PM Subjective & Objective Subjective Subjective:: Patient is a pleasant 73-year-old female who presents today for follow-up of cervical medial branch block bilaterally C5-C6 and C6-C7 on 03/15/2024. Today she rates her pain a 8 out of 10. Patient denies any new trauma or injury. She does state that she had at least 60% improvement following this injection and feels like initially it had been worn off but then she stated that she has been starting to notice additional improvement. She states the pain is definitely not as severe and not as constant. Patient has been staying very active and did yoga yesterday as well. Patient does state that she still will occasionally have some pain in and around her neck and that the compounded cream is helping. Patient feels like a lot of her pain is related to her sleeping. She states that she has a special pillow however feels like maybe this may be worsening some of her symptoms. Her Lakhwinder has been reviewed and is appropriate. Review of Systems: General: No recent weight changes, no fever, no sleep disturbances Respiratory: No cough, no shortness of air, no recurring pulmonary infections Cardiovascular/peripheral vascular: No chest pain, no palpitations, no edema, no shortness of breath Gastrointestinal: No new onset incontinence, normal bowel movements reported Genitourinary: No new onset incontinence Musculoskeletal: Neck pain Psychiatric: [Normal mood/affect] Neurological: [Denies weakness in extremities], [denies balance issues] Pain at rest (0-10 scale): 8 Objective Objective:: Physical Exam: General: Alert and oriented x3, no acute distress, pleasant and cooperative Lungs: Respirations even and unlabored, symmetrical chest expansion Eyes: PERRL Musculoskeletal: Flexion and extension of cervical [spine] somewhat guarded secondary to pain, [antalgic gait noted] Neurological: Speech clear, no gross sensory deficit Has patient had previous pain injection?: Yes Percent improvement in pain since last injection: 60% Conservative treatment options previously tried: Home exercise plan Length of treatment: Longer than 6 weeks Meds Home Medications and Allergies Home Medications Medication Instructions Recorded Confirmed Type aspirin 81 mg tablet,delayed 81 mg PO DAILY 06/18/21 04/07/24 History release (Adult Aspirin Regimen) clobetasol 0.05 % topical cream 1 applic topical BID #30 grams 12/22/22 04/07/24 Rx sertraline 100 mg tablet See Rx Instructions .Route 07/07/23 04/07/24 Rx .COMPLEX #90 tabs famotidine 40 mg tablet See Rx Instructions .Route 12/21/23 04/07/24 Rx .COMPLEX #180 tabs hydrochlorothiazide 25 mg tablet See Rx Instructions .Route 12/21/23 04/07/24 Rx .COMPLEX #90 tabs losartan 100 mg tablet See Rx Instructions .Route 12/21/23 04/07/24 Rx .COMPLEX #90 tabs metoprolol succinate 100 mg See Rx Instructions .Route 12/21/23 04/07/24 Rx tablet,extended release 24 hr .COMPLEX #90 tabs amlodipine 10 mg tablet See Rx Instructions .Route 12/22/23 04/07/24 Rx .COMPLEX #90 tabs alendronate 70 mg tablet (Fosamax) 70 mg PO WEEKLY #12 tabs 01/14/24 04/07/24 Rx amoxicillin 500 mg tablet 500 mg PO BID 7 days #14 tabs 03/21/24 04/07/24 Rx benzonatate 200 mg capsule 200 mg PO BID PRN cough #30 caps 03/21/24 04/07/24 Rx methylprednisolone 4 mg tablets in See Rx Instructions PO PER PKG DIR 03/21/24 04/07/24 Rx a dose pack (Medrol (Junior)) #21 tabs omeprazole 20 mg capsule,delayed 20 mg PO DAILY #30 caps 03/21/24 04/07/24 Rx release New Prescriptions to Start Prescriptions: Allergies Allergy/AdvReac Type Severity Reaction Status Date / Time Sulfa (Sulfonamide Allergy Verified 03/21/24 10:36 Antibiotics) lisinopril AdvReac Intermediate Cough Verified 03/21/24 10:36 Assessment and Plan *Assessment and plan (1) Facet arthropathy, cervical: Status: Acute Category: Medical Code(s): M47.812 - Spondylosis without myelopathy or radiculopathy, cervical region (2) Degenerative disc disease, cervical: Status: Acute Category: Medical Code(s): M50.30 - Other cervical disc degeneration, unspecified cervical region Plan Patient is stating that her pain is much better compared to when she initially started coming to see our office. Patient does not require any additional injection therapy at this time. I will send in a 2-week dose of tizanidine 4 mg at at bedtime and have the patient follow-up in 1 month for reevaluation of symptoms and plan of care. Patient is agreeable to this. Patient has been instructed to contact the clinic with any concerns before the next appointment. Dr. Ward has reviewed this note and agrees with this plan of care. This note was dictated using voice recognition software and make contain errors or omissions.
== END 2024-04-07 23:59 | disposition home or self-care (01) ==
PROVIDERS: PCP Internal Medicine; Visit Provider Nurse Practitioner Family
DX: M47.812 Spondylosis without myelopathy or radiculopathy, cervical region (principal); M50.30 Other cervical disc degeneration, unspecified cervical region
CPT/HCPCS: 99212; G0463

== ENCOUNTER 2024-04-12 08:51 | Observation (INO) | payer MEDICARE, SELFPAY ==
[2024-04-12] VITALS (13 sets, daily range): BP systolic 100–143; BP diastolic 40–113; PULSE 52–75; RESP 16–19; TEMP 36.6–37; O2SAT 95–99; BMI 35.4; BMI 35.6
[2024-04-12 09:14] LABS: Basophils % 0.5 % (0.1-2.0); Eosinophils # 0.2 K/mm3 (0.0-0.4); Eosinophils % 2.8 % (0.1-12.0); Hemoglobin 12.2 g/dL (12.2-16.2); Lymphocytes # 2.2 K/mm3 (0.7-4.5); Lymphocytes % 26.3 % (10-50); Mean Corpuscular HGB Conc 32.8 g/dL (31.8-35.4); Mean Corpuscular Hemoglobin 30.2 pg (27.0-31.2); Mean Corpuscular Volume 91.9 fl (81-99); Mean Platelet Volume 8.3 fl (7.4-10.4); Monocytes # 0.5 K/mm3 (0.1-1.0); Monocytes % 6.2 % (1.7-9.3); Neutrophils # 5.3 K/mm3 (1.8-7.8); Neutrophils % 64.3 % (37.0-80.0); Platelet Count 348 K/mm3 (142-424); Red Blood Count 4.03 M/mm3 (4.20-5.40); Red Cell Distribution Width 14.2 % (11.5-17.5); White Blood Count 8.3 K/mm3 (4.8-10.8)
[2024-04-12 09:19] LABS: Chloride 103 mmol/L (98-107); Sodium 139 mmol/L (136-145)
[2024-04-12 09:20] LABS: Potassium 4.1 mmoL/L (3.5-5.1)
--- NOTE | 2024-04-12 09:21 | CT_ITS ---
FINAL REPORT TECHNIQUE: Thin section axial CT with sagittal reconstruction without contrast. This study was performed with techniques to keep radiation doses as low as reasonably achievable, (ALARA). Individualized dose reduction techniques using automated exposure control or adjustment of mA and/or kV according to the patient's size were employed. CLINICAL HISTORY: frequent falls, weakness COMPARISON: None FINDINGS: No fracture is seen. Alignment is normal. No obvious bony spinal canal stenosis is present. Moderate diffuse degenerative disc disease and spondylosis. There is advanced facet arthropathy. IMPRESSION: No acute findings. Reviewed, Interpreted and Dictated by Delisa Figueroa MD Transcribed by Yamilet Burgos Authenticated and [facility]
--- NOTE | 2024-04-12 09:21 | XR_ITS ---
FINAL REPORT CLINICAL HISTORY: frequent falls, weakness COMPARISON: 03/21/2024 FINDINGS: No acute pulmonary opacity is present. There is no evidence of effusion or pneumothorax. Mediastinum is unremarkable. Heart size is normal. IMPRESSION: No acute abnormality. Reviewed, Interpreted and Dictated by Delisa Figueroa MD Transcribed by Liz Munoz Authenticated and [facility]
--- NOTE | 2024-04-12 09:21 | XR_ITS ---
FINAL REPORT CLINICAL HISTORY: frequent falls, weakness FINDINGS: Pelvis A single view was obtained. There is no acute fracture or dislocation. There are severe degenerative changes of the left hip. There are postoperative changes from right hip arthroplasty. IMPRESSION: Degenerative and postsurgical changes. Reviewed, Interpreted and Dictated by Delisa Figueroa MD Transcribed by Liz Munoz Authenticated and [facility]
--- NOTE | 2024-04-12 09:21 | CT_ITS ---
FINAL REPORT TECHNIQUE: Noncontrast exam CLINICAL HISTORY: frequent falls, weakness FINDINGS: No abnormal density is seen. Ventricles are normal. There is no hemorrhage. No mass effect is seen. There is soft tissue fullness in the right infratemporal fossa raising question of possible mass. Bone windows show no evidence of fracture. IMPRESSION: No acute findings. Possible mass in the right anterior temporal fossa. Correlation with nonemergent MR brain without and with contrast is recommended. Reviewed, Interpreted and Dictated by Delisa Figueroa MD Transcribed by Luz Trevino Authenticated and [facility]
[2024-04-12 09:22] LABS: Alanine Aminotransferase 23 U/L (12-78); Albumin Level 3.9 g/dl (3.5-5.0); Albumin/Globulin Ratio 1.3 (1.1-1.8); Alkaline Phosphatase 53 U/L (38-126); Anion Gap 11.1 mEq/L (5-15); Aspartate Amino Transferase 26 U/L (14-36); Bilirubin,Total 0.3 mg/dl (0.2-1.3); Blood Urea Nitrogen 26 mg/dl (7-17); Calcium 8.8 mg/dl (8.4-10.2); Carbon Dioxide 29 mmol/L (22.0-30.0); Creatinine Clearance Estimated 27 mL/min (50-200); Estimated Glomerular Filt Rate 18 ml/min (>60); GFR (African American) 22 ML/MIN (>60); Globulin 3.1 g/dL (1.3-3.2); Glucose 133 mg/dl (74-100); Magnesium 1.4 mg/dl (1.6-2.3)
[2024-04-12 09:29] LABS: Microscopic, Urine URINE MICROSCOPIC (MICROSCOPIC)
--- NOTE | 2024-04-12 09:33 | ECG_ITS ---
APPROVED REPORT Exam: Resting ECG HR:57 bpm ECG Measurements Heart Rate 57 AXES MD 116 P 57 QRSd 85 QRS 70 QT 409 T 58 QTc 403 Conclusion SINUS BRADYCARDIA WITH SINUS ARRHYTHMIA WITH SHORT MD INTERVAL BORDERLINE ECG Electronically signed by : SONAM WONG, 04/12/2024 16:22:11
[2024-04-12 09:34] LABS: Appearance,Urine CLEAR (Clear); Bilirubin,Urine Negative (Negative); Blood, Urine Negative (Negative); Color,Urine YELLOW (Yellow); Glucose,Urine (UA) Negative (Negative); Ketones,Urine Negative (Negative); Leukocyte Esterase,Urine 2+ (Negative); Nitrate,Urine Negative (Negative); Protein,Urine Negative (Negative); Specific Gravity, Urine <= 1.005 (1.005-1.030); Urobilinogen,Urine 0.2 EU/dl (0.2)
--- NOTE | 2024-04-12 09:38 | CT_ITS ---
FINAL REPORT CLINICAL HISTORY: Low back pain, falls COMPARISON: None FINDINGS: CT LUMBAR SPINE TECHNIQUE: Thin section axial CT with sagittal and coronal reconstructions FINDINGS: No fracture is present. There is mild dextroscoliosis. No bony canal stenosis is seen. Moderate diffuse degenerative disc disease. IMPRESSION: Negative CT evaluation of the lumbar spine for acute bony injury. This study was performed using automated techniques to achieve radiation exposure as low as reasonably achievable Reviewed, Interpreted and Dictated by Delisa Figueroa MD Transcribed by Yamilet Burgos Authenticated and [facility]
--- NOTE | 2024-04-12 09:38 | CT_ITS ---
FINAL REPORT CLINICAL HISTORY: Mid back pain, falls COMPARISON: None FINDINGS: CT THORACIC SPINE TECHNIQUE: Thin section axial CT with sagittal and coronal reconstructions. This study was performed with techniques to keep radiation doses as low as reasonably achievable, (ALARA). Individualized dose reduction techniques using automated exposure control or adjustment of mA and/or kV according to the patient's size were employed. FINDINGS: No fracture is present. Alignment is normal. No bony canal stenosis is seen. Moderate diffuse degenerative disc disease and spondylosis. IMPRESSION: Negative CT evaluation of the thoracic spine for acute bony injury. Reviewed, Interpreted and Dictated by Delisa Figueroa MD Transcribed by Yamilet Burgos Authenticated and [facility]
--- NOTE | 2024-04-12 09:39 | CT_ITS ---
FINAL REPORT TECHNIQUE: Noncontrast CT exam of the abdomen and pelvis. This study was performed with techniques to keep radiation doses as low as reasonably achievable (ALARA). Individualized dose reduction techniques using automated exposure control or adjustment of mA and/or kV according to the patient''s size were employed. CLINICAL HISTORY: diarrhea, ISIDRO COMPARISON: None FINDINGS: Abdomen: Lung bases are clear. The gallbladder is negative. Liver, spleen, pancreas and adrenal glands have a normal CT appearance in their limited unenhanced state. Bowel is unremarkable. The kidneys show no stone disease or obstruction. No obvious renal mass is present. No ureteral stones are present. Pelvis: No distal ureteral stones are seen. Bladder is unremarkable. The appendix is normal. Pelvic bowel loops are unremarkable. The uterus and ovaries are normal. There is streak artifact from right hip arthroplasty which obscures the lower right pelvis. No fluid collection or adenopathy is seen. IMPRESSION: No acute findings. Reviewed, Interpreted and Dictated by Delisa Figueroa MD Transcribed by Yamilet Burgos Authenticated and [facility]
[2024-04-12 09:40] LABS: T4 (Thyroxine) 10.7 ug/dl (5.53-11.0)
[2024-04-12 09:54] LABS: Thyroid Stimulating Hormone 5.55 uIU/mL (0.465-4.68)
--- NOTE | 2024-04-12 09:55 | ED_ITS ---
Discharge Plan Disposition Patient Disposition: Admitted Condition: Good Clinical Impressions Clinical Impression: ISIDRO (acute kidney injury), Hypomagnesemia, Falls frequently, General weakness, Acute UTI Discharge ED Provider: Staci Bray General Adult HPI General Chief complaint: Fall Stated complaint: possible dehyradration Time Seen by Provider: 04/12/24 09:05 Mode of Arrival: Wheelchair Source of Information: Patient Limitations: No Limitations Description of Symptoms (Recalled from ER Triage Doc. by RN): pt reports to ED with c/o diarrhea, dehydration, abd pain. pt reports that the past two days she has been having increased falls. pt reports she seen the pain doc on thursday and was given a new pain medication but does not remember the name. pt reports pain in bilateral knees from falling. History of Present Illness HPI narrative: This patient is a 73-year-old female with a history of depression, anxiety, GERD, CKD, and chronic neck pain presenting to the emergency department for evaluation with concern for general weakness and frequent falls. Patient reports that she saw pain management on for chronic neck pain, which has already been thoroughly worked up by her primary care provider on medical record review. She has had prior MRI that shows significant degeneration. She notes that she was started on a muscle relaxer, and on medical record review it appears she was started on tizanidine, on . Thursday, she notes she was having watery diarrhea. The diarrhea has since stopped, but she states that she feels very weak, especially in both of her legs, and she has been falling a lot. She denies any injuries from the fall, but she states she did hit her head once. She fell 8 times yesterday. She denies any pain at this time, just states overall she feels shaky. She is concerned she may be dehydrated. Related Data Home Medications Medication Instructions Recorded Confirmed aspirin 81 mg tablet,delayed 81 mg PO DAILY 06/18/21 04/12/24 release (Adult Aspirin Regimen) Previous Rx's Medication Instructions Recorded clobetasol 0.05 % topical cream 1 applic topical BID #30 grams 12/22/22 sertraline 100 mg tablet See Rx Instructions .Route 07/07/23 .COMPLEX #90 tabs famotidine 40 mg tablet See Rx Instructions .Route 12/21/23 .COMPLEX #180 tabs hydrochlorothiazide 25 mg tablet See Rx Instructions .Route 12/21/23 .COMPLEX #90 tabs losartan 100 mg tablet See Rx Instructions .Route 12/21/23 .COMPLEX #90 tabs metoprolol succinate 100 mg See Rx Instructions .Route 12/21/23 tablet,extended release 24 hr .COMPLEX #90 tabs amlodipine 10 mg tablet See Rx Instructions .Route 12/22/23 .COMPLEX #90 tabs alendronate 70 mg tablet (Fosamax) 70 mg PO WEEKLY #12 tabs 01/14/24 amoxicillin 500 mg tablet 500 mg PO BID 7 days #14 tabs 03/21/24 benzonatate 200 mg capsule 200 mg PO BID PRN cough #30 caps 03/21/24 methylprednisolone 4 mg tablets in See Rx Instructions PO PER PKG DIR 03/21/24 a dose pack (Medrol (Junior)) #21 tabs omeprazole 20 mg capsule,delayed 20 mg PO DAILY #30 caps 03/21/24 release baclofen 5 mg tablet 5 mg PO HS #14 tabs 04/07/24 Allergies Allergy/AdvReac Type Severity Reaction Status Date / Time Sulfa (Sulfonamide Allergy Verified 03/21/24 10:36 Antibiotics) lisinopril AdvReac Intermediate Cough Verified 03/21/24 10:36 PFSH PFSH Disclaimer: The information contained in this section may have been updated after the patient was seen, as this information can be updated by other users. Medical History Depression Anxiety Essential hypertension Surgical History History of total right hip arthroplasty History of 2 sections Family History Other Unknown family medical history Social History Smoking Status: Never smoker alcohol intake: never substance use type: denies use current occupational status: retired Travel in the last 8 weeks: None household members: family housing: house ROS Obtained: Yes All systems reviewed & no additional complaints except as documented Physical Exam General General appearance: alert and in no apparent distress Head Head exam: atraumatic and normocephalic Eye Eye exam: Present normal appearance, PERRL and EOMI ENT ENT exam: Present normal exam, normal oropharynx, mucous membranes moist and normal external ear exam Neck Neck exam: Present normal inspection, full ROM and trachea midline; Absent tenderness Chest Chest inspection: Present normal inspection and symmetric chest wall rise; Absent tenderness Respiratory Respiratory exam: Present normal lung sounds bilaterally; Absent respiratory distress, wheezes, stridor or accessory muscle use Cardiovascular Cardiovascular exam: Present regular rate and normal rhythm Abdominal Exam Abdominal exam: Present soft; Absent distention, tenderness or guarding Extremities Exam Extremities exam: Present normal inspection, full ROM and normal capillary refill; Absent tenderness or edema Back Exam Back exam: Present normal inspection and full ROM; Absent tenderness Neurological Exam Neurological exam: Present alert, oriented X3 and CN II-XII intact; Absent normal gait (Generally weak requiring some assistance to ambulate) or motor sensory deficit (Generally weak with no focal deficits) Psychiatric Psychiatric exam: Present normal affect and normal mood Skin Skin exam: Present warm and dry Medical Decision Making Medical Records Medical records reviewed: Yes I reviewed the patient's medical records. Lakhwinder Inquiry Pt receiving controlled substance: No Vital Signs: 04/12/24 08:54 04/12/24 10:34 04/12/24 10:59 Temperature 98.6 F Temperature Source Oral Pulse Rate 63 57 L Pulse Rate [Left Radial] 75 Respiratory Rate 19 Blood Pressure 121/43 L Blood Pressure [Right Arm] 111/75 Blood Pressure Mean 69 Blood Pressure Mean [Right Arm] 87 02 Sat by Pulse Oximetry 98 98 97 Oxygen Delivery Method Room Air 04/12/24 11:01 04/12/24 11:43 04/12/24 11:50 Temperature Temperature Source Pulse Rate 58 L 65 56 L Pulse Rate [Left Radial] Respiratory Rate Blood Pressure 122/40 L 131/113 H 143/96 H Blood Pressure [Right Arm] Blood Pressure Mean Blood Pressure Mean [Right Arm] 02 Sat by Pulse Oximetry 95 97 97 Oxygen Delivery Method Room Air Room Air Room Air 04/12/24 12:01 04/12/24 13:00 04/12/24 14:01 Temperature Temperature Source Pulse Rate 52 L 59 L 71 Pulse Rate [Left Radial] Respiratory Rate Blood Pressure 131/92 H 122/75 100/81 L Blood Pressure [Right Arm] Blood Pressure Mean Blood Pressure Mean [Right Arm] 02 Sat by Pulse Oximetry 99 97 98 Oxygen Delivery Method Room Air 04/12/24 15:02 Temperature Temperature Source Pulse Rate 64 Pulse Rate [Left Radial] Respiratory Rate Blood Pressure 140/65 Blood Pressure [Right Arm] Blood Pressure Mean Blood Pressure Mean [Right Arm] 02 Sat by Pulse Oximetry 98 Oxygen Delivery Method Lab Data Lab results reviewed: Yes I reviewed the patient's lab results. Lab Results 04/12/24 09:02: WBC 8.3, RBC 4.03 L, Hgb 12.2, Hct 37.0, MCV 91.9, MCH 30.2, MCHC 32.8, RDW 14.2, Plt Count 348, MPV 8.3, Neut % (Auto) 64.3, Lymph % (Auto) 26.3, [place] % (Auto) 6.2, Eos % (Auto) 2.8, Baso % (Auto) 0.5, Neut # (Auto) 5.3, Lymph # (Auto) 2.2, [place] # (Auto) 0.5, Eos # (Auto) 0.2, Baso # (Auto) 0.0, Sodium 139, Potassium 4.1, Chloride 103, Carbon Dioxide 29, Anion Gap 11.1, BUN 26 H, Creatinine 2.60 H, Estimated Creat Clear 27, Estimated GFR 18 L*, Est GFR ( Amer) 22 L, Glucose 133 H, Calcium 8.8, Magnesium 1.4 L, Total Bilirubin 0.3, AST 26, ALT 23, Alkaline Phosphatase 53, Total Protein 7.0, Albumin 3.9, Globulin 3.1, Albumin/Globulin Ratio 1.3, TSH 5.55 H, Thyroxine (T4) 10.7 04/12/24 09:26: Urine Color Yellow, Urine Appearance Clear, Urine pH 7.0, Ur Specific [place] <= 1.005, Urine Protein Negative, Urine Glucose (UA) Negative, Urine Ketones Negative, Urine Blood Negative, Urine Nitrate Negative, Urine Bilirubin Negative, Urine Urobilinogen 0.2, Ur Leukocyte Esterase 2+ A, Urine RBC None, Urine WBC 10-20, Ur Squamous Epith Cells 5-10, Urine Bacteria 2+ 04/12/24 13:50: Sodium 141, Potassium 3.9, Chloride 107, Carbon Dioxide 28, Anion Gap 9.9, BUN 22 H, Creatinine 2.10 H, Estimated Creat Clear 34, Estimated GFR 23 L, Est GFR ( Amer) 28 L D, Glucose 130 H, Calcium 8.2 L 04/12/24 09:02 04/12/24 13:50 Orders (Tests/Meds): ED MEDICATIONS Generic Name Dose Route Start Last Admin Trade Name Rahat PRN Reason Stop Dose Admin Lactated Ringer's 1,000 mls @ 75 mls/hr 04/12/24 15:45 Lactated Ringer's 1000 Ml Bag IV 04/13/24 05:04 .[id number] GILES Discontinued Medications Generic Name Dose Route Start Last Admin Trade Name Freq PRN Reason Stop Dose Admin Magnesium Sulfate 2 gm in 50 mls @ 50 mls/hr 04/12/24 09:39 04/12/24 09:59 Magnesium Sulfate 2gm/50ml Premix IV 04/12/24 10:38 50 mls/hr ONCE ONE Administration Lactated Ringer's 1,000 mls @ 999 mls/hr 04/12/24 09:40 04/12/24 09:59 Lactated Ringer's 1000 Ml Bag IV 04/12/24 10:40 999 mls/hr .Q1H1M ONE Administration Lactated Ringer's 1,000 mls @ 999 mls/hr 04/12/24 11:25 04/12/24 11:46 Lactated Ringer's 1000 Ml Bag IV 04/12/24 12:25 Not Given .Q1H1M ONE Sodium Chloride 1,000 mls @ 999 mls/hr 04/12/24 11:26 04/12/24 11:49 Sod Chlor 0.9% 1000ml Bag IV 04/12/24 12:26 999 mls/hr .Q1H1M ONE Administration Ceftriaxone Sodium 2 gm/ 100 mls @ 200 mls/hr 04/12/24 11:27 04/12/24 11:48 Sodium Chloride IV 04/12/24 11:56 200 mls/hr ONCE ONE Administration ORDERS Category Date Time Status CT abdomen pelvis wo con Stat Cat Scan 04/12/24 09:[address] cervical spine wo con Stat Cat Scan 04/12/24 09:[address] head/brain wo con Stat Cat Scan 04/12/24 09:[address] lumbar spine wo con Stat Cat Scan 04/12/24 09:[address] thoracic spine wo con Stat Cat Scan 04/12/24 09:38 Completed CXR --portable [XR chest portable] Stat Exams 04/12/24 09:21 Completed Pelvis XR 1-2 views [XR pelvis 1-2V] Stat Exams 04/12/24 09:21 Completed BMP [Basic Metabolic Panel] Stat Lab 04/12/24 13:50 Completed Complete Blood Count Auto Diff AMLAB Lab 04/13/24 06:00 Ordered Complete Blood Count Auto Diff Stat Lab 04/12/24 09:02 Completed Comprehensive Metabolic Panel AMLAB Lab 04/13/24 06:00 Ordered Comprehensive Metabolic Panel Stat Lab 04/12/24 09:02 Completed MAG [Magnesium] Stat Lab 04/12/24 09:02 Completed Magnesium AMLAB Lab 04/13/24 06:00 Ordered T4 (Thyroxine) Stat Lab 04/12/24 09:02 Completed TSH [Thyroid Stimulating Hormone] Stat Lab 04/12/24 09:02 Completed UA [Urinalysis and Microscopic] Stat Lab 04/12/24 09:26 Completed Urine Culture Stat Micro 04/12/24 09:26 Received ECG Data Tracing #1: I reviewed this ECG and interpreted as documented below: Sinus bradycardia with a ventricular rate of 57 beats per minute. No acute ST changes concerning for ischemia. Normal axis and intervals. ECG initial impression date: 04/12/24 ECG initial impression time: 09:38 Medical Decision Narrative: In summary, this patient is a 73-year-old female presenting to the Emergency Department for evaluation of general weakness and frequent falls after recent initiation of tizanidine as well as recent bout of diarrhea. Differential diagnoses considered include but are not limited to dehydration, ISIDRO, electrolyte derangements, viral syndrome, UTI, colitis, gastroenteritis, traumatic injuries from fall. Ruling out the most morbid conditions drove assessment. It should be noted patient's history includes CKD which may or may not be at goal therapy. This complicates all aspects of care by increasing patient's risk for morbidity. On exam, the patient is well-appearing. She has normal vital signs on cardiac telemetry. No focal neurologic deficits, but overall she is generally weak. Workup included CBC, CMP, TSH, T4, magnesium, urinalysis, CT head, CT spines, and CT abdomen pelvis without IV contrast. She was given a bolus of IV fluids I independently interpreted CT scans prior to the radiologist read and noted no obvious traumatic injury and no obvious obstructive ureteral stone. Please see their read for final interpretation. Labs were obtained that demonstrated ISIDRO with creatinine of 2.6 up from a baseline of 1.2. Magnesium is low, so IV replacement was ordered. She has concerns for urinary tract infection, so IV Rocephin was administered. At 1125, patient was placed in ED observation status pending additional IV fluids, Rocephin to treat urinary tract infection, and repeat BMP for evaluation. Will ambulate the patient to see if she is feeling better afterward to determine whether or not the patient would be appropriate for discharge versus admission. The patient was provided serial reevaluations and cardiac monitoring while awaiting ultimate disposition. On multiple subsequent reassessments, the patient is resting comfortably with normal vital signs on cardiac telemetry. She is able to ambulate to the restroom but is very unsteady and requires some assistance and monitoring. On repeat BMP, kidney function improved from creatinine of 2.6-2.1. Ultimately patient and family do not feel comfortable with discharge, and she still very unsteady on her feet. Given this, I feel that she would benefit from admission for continued monitoring and fluid resuscitation. Decision to admit was made at 1530 after 4 hours and 5 minutes in ED observation. I had an interactive discussion with Dr. Morrow who admitted the patient. Critical Care Critical Care Time Critical Care Time: No
[2024-04-12 09:58] LABS: Bacteria,Urine 2+ /lpf
[2024-04-12] MEDS: LACTATED RINGERS 1000ML 1,000 ML 999 ML IV (09:59)
[2024-04-12] MEDS: MAGNESIUM SULFATE IN WATER 2 GM/50 ML PIGGYBACK IV (09:59)
--- NOTE | 2024-04-12 10:58 | PC.NURSE ---
rounded on pt, adjusted bp cuff.
[2024-04-12] MEDS: CEFTRIAXONE SODIUM 2 GM in 0.9 % SODIUM CHLORIDE 100 ML IV (11:48)
[2024-04-12] MEDS: 0.9 % SODIUM CHLORIDE 1000ML 1,000 ML 999 ML IV (11:49)
--- NOTE | 2024-04-12 13:18 | PC.NURSE ---
patient given sandwich and chips and drink at this time.
[2024-04-12 14:21] LABS: Chloride 107 mmol/L (98-107); Potassium 3.9 mmoL/L (3.5-5.1); Sodium 141 mmol/L (136-145)
[2024-04-12 14:24] LABS: Anion Gap 9.9 mEq/L (5-15); Blood Urea Nitrogen 22 mg/dl (7-17); Calcium 8.2 mg/dl (8.4-10.2); Carbon Dioxide 28 mmol/L (22.0-30.0); Creatinine Clearance Estimated 34 mL/min (50-200); Estimated Glomerular Filt Rate 23 ml/min (>60); GFR (African American) 28 ML/MIN (>60); Glucose 130 mg/dl (74-100)
--- NOTE | 2024-04-12 15:30 | PC.NURSE ---
call made to house painter for bed placement
--- NOTE | 2024-04-12 15:46 | PC.NURSE ---
report called to vashti on second floor
[2024-04-12] MEDS: LACTATED RINGERS 1000ML 1,000 ML 75 ML IV (16:28)
--- NOTE | 2024-04-12 18:09 | EXP.HP ---
History of Present Illness *Admission Date: 04/12/24 *Reason for visit:: Falling, diarrhea *History of present illness: Ms. Munson is a 73-year-old female with history of hypertension, neck pain, arthritis, GERD. Reports she came to the ER because of development of diarrhea since Thursday. Concern for dehydration and falling at home. She has had increased falls over the past 24 hours and fell 8 times yesterday. Saw her pain doctor on Thursday and was given muscle relaxer. Has felt more weak since. Has had increased somnolence and been hard to wake per her report. Has degenerative disease in her neck shown on prior MRI. States she started the muscle relaxer on Thursday. Appears to be baclofen from her chart review. Has had symptoms consistent with enteritis versus medication side effect since. On presentation to the ER today, workup concerning for finding of UTI with grossly abnormal urinalysis. Labs concerning for electrolyte disturbances and ISIDRO. Medicine consulted for admission and further management. Patient quite weak, needs therapy eval. On evaluation after arriving to the floor. Is stable on room air. Alert and oriented x 4. Eating dinner on interview. Sister at bedside. Denies any chest pain, shortness of breath, nausea or vomiting. No fevers. [facility] Disclaimer: The information contained in this section may have been updated after the patient was seen, as this information can be updated by other users. Medical History Depression Anxiety Essential hypertension Surgical History History of total right hip arthroplasty History of 2 sections Family History Other Unknown family medical history Social History (Updated 04/12/24 @ 16:02 by Manasa Sweeney RN) Smoking Status: Never smoker alcohol intake: never substance use type: denies use current occupational status: retired Travel in the last 8 weeks: None household members: family housing: house Review of Systems Review of Systems Review of systems (narrative): 14 point review of systems performed, pertinent positives and negatives as per HPI Meds Home Medications and Allergies Home Medications Medication Instructions Recorded Confirmed Type aspirin 81 mg tablet,delayed 81 mg PO DAILY 06/18/21 04/12/24 History release (Adult Aspirin Regimen) alendronate 70 mg tablet (Fosamax) 70 mg PO WEEKLY #12 tabs 01/14/24 04/12/24 Rx omeprazole 20 mg capsule,delayed 20 mg PO DAILY #30 caps 03/21/24 04/12/24 Rx release baclofen 5 mg tablet 5 mg PO HS #14 tabs 04/07/24 04/12/24 Rx amlodipine 10 mg tablet 10 mg PO DAILY 04/12/24 04/12/24 History famotidine 40 mg tablet 40 mg PO BID 04/12/24 04/12/24 History hydrochlorothiazide 25 mg tablet 25 mg PO DAILY 04/12/24 04/12/24 History losartan 100 mg tablet 100 mg PO DAILY 04/12/24 04/12/24 History metoprolol succinate 100 mg 100 mg PO DAILY 04/12/24 04/12/24 History tablet,extended release 24 hr New Prescriptions to Start Prescriptions: Allergies Allergy/AdvReac Type Severity Reaction Status Date / Time Sulfa (Sulfonamide Allergy Verified 03/21/24 10:36 Antibiotics) lisinopril AdvReac Intermediate Cough Verified 03/21/24 10:36 Exam Data for Last 24 hours Vital signs and Labs for Last 24 Hours: Temp Pulse Resp BP Pulse Ox O2 Del Method 98 F 68 18 116/61 98 Room Air 04/12/24 16:00 04/12/24 16:00 04/12/24 16:00 04/12/24 16:00 04/12/24 16:00 04/12/24 17:00 Laboratory Results - last 24 hr 04/12/24 09:02: WBC 8.3, RBC 4.03 L, Hgb 12.2, Hct 37.0, MCV 91.9, MCH 30.2, MCHC 32.8, RDW 14.2, Plt Count 348, MPV 8.3, Neut % (Auto) 64.3, Lymph % (Auto) 26.3, [place] % (Auto) 6.2, Eos % (Auto) 2.8, Baso % (Auto) 0.5, Neut # (Auto) 5.3, Lymph # (Auto) 2.2, [place] # (Auto) 0.5, Eos # (Auto) 0.2, Baso # (Auto) 0.0, Sodium 139, Potassium 4.1, Chloride 103, Carbon Dioxide 29, Anion Gap 11.1, BUN 26 H, Creatinine 2.60 H, Estimated Creat Clear 27, Estimated GFR 18 L*, Est GFR ( Amer) 22 L, Glucose 133 H, Calcium 8.8, Magnesium 1.4 L, Total Bilirubin 0.3, AST 26, ALT 23, Alkaline Phosphatase 53, Total Protein 7.0, Albumin 3.9, Globulin 3.1, Albumin/Globulin Ratio 1.3, TSH 5.55 H, Thyroxine (T4) 10.7 04/12/24 09:26: Urine Color Yellow, Urine Appearance Clear, Urine pH 7.0, Ur Specific [place] <= 1.005, Urine Protein Negative, Urine Glucose (UA) Negative, Urine Ketones Negative, Urine Blood Negative, Urine Nitrate Negative, Urine Bilirubin Negative, Urine Urobilinogen 0.2, Ur Leukocyte Esterase 2+ A, Urine RBC None, Urine WBC 10-20, Ur Squamous Epith Cells 5-10, Urine Bacteria 2+ 04/12/24 13:50: Sodium 141, Potassium 3.9, Chloride 107, Carbon Dioxide 28, Anion Gap 9.9, BUN 22 H, Creatinine 2.10 H, Estimated Creat Clear 34, Estimated GFR 23 L, Est GFR ( Amer) 28 L D, Glucose 130 H, Calcium 8.2 L I & O for Last 24 hours: Intake & Output 04/09/24 04/10/24 04/11/24 04/12/24 23:59 23:59 23:59 23:59 Output Total 0 / 0 Balance 0 / 0 Weight 88.507 kg Constitutional Constitutional: no acute distress, obese, chronically ill appearing and cooperative *Routine HEENT Exam Head: Present normocephalic Eye: Present EOMI and PERRL ENT: Present mucous membranes moist Comments: Edentulous *Routine Neck Exam Neck: Present supple; Absent lymphadenopathy *Routine Respiratory Exam Respiratory: Present CTA bilaterally; Absent respiratory distress, rhonchi, stridor, wheezes or crackles *Routine Cardiovascular Exam Cardiovascular: Present RRR *Routine Abdominal Exam Abdominal: Present soft and normoactive bowel sounds; Absent tenderness *Routine Rectal Exam Rectal:: deferred *Routine Genitalia Exam Genitalia:: deferred *Routine Extremities Exam Extremities: Absent cyanosis, clubbing or edema *Routine Skin Exam Skin: Present intact and warm; Absent rash *Routine Neurological Exam Neurological: Present alert, oriented X3 and moving all extremities; Absent altered mental status Routine Psychiatric Exam Psychiatric: Present normal affect Assessment and Plan *Assessment and plan (1) ISIDRO (acute kidney injury): Status: Acute Category: Medical Code(s): N17.9 - Acute kidney failure, unspecified (2) Acute UTI: Status: Acute Category: Medical Code(s): N39.0 - Urinary tract infection, site not specified (3) General weakness: Status: Acute Category: Medical Code(s): R53.1 - Weakness (4) Falls frequently: Status: Acute Category: Medical Code(s): R29.6 - Repeated falls (5) Chronic kidney disease, stage 3a: Problem Comment: Will follow this closely. Patient has been stable over the last few lab draws. Status: Acute Category: Medical Code(s): N18.31 - Chronic kidney disease, stage 3a (6) Essential hypertension: Problem Comment: Patient is taking amlodipine, losartan, metoprolol and hydrochlorothiazide. All of these together are helping with her hypertension. Blood pressure today was 128/70. Pressure in June was 112/64. Status: Acute Category: Medical Code(s): I10 - Essential (primary) hypertension (7) Depression: Problem Comment: Sertraline is working here continue. Status: Acute Qualifiers: Depression Type: unspecified Qualified Code(s): F32.A - Depression, unspecified Category: Medical Code(s): F32.9 - Major depressive disorder, single episode, unspecified (8) Hypomagnesemia: Status: Acute Category: Medical Code(s): E83.42 - Hypomagnesemia Plan 73-year-old female with diarrhea over the past 4 days, developed weakness, falling. Brought to the ER. Found to have UTI and ISIDRO. Discussed case with ER physician, request admission for fluid rehydration, treatment of UTI, and therapy eval. I agreed to admit for further management. Tolerating dinner on my evaluation at time of admission. Problems addressed as follows: ISIDRO Hypomagnesemia -Prerenal with creatinine 2.6, BUN 26. Magnesium 1.4. Patient has continued to take her blood pressure meds. Likely component of injury from her ARB as well. -Holding blood pressure medications. Fluid resuscitating with 2 L bolus fluids. Will continue 1 L LR at 75 cc an hour overnight. Tolerating p.o. fluids. -Repeat CBC, CMP, magnesium ordered for the morning. -Magnesium replacement with 2 g IV x 1 UTI: Urinalysis grossly abnormal with leukesterase and bacteria. 2 g ceftriaxone IV x 1 in the ER. Urine culture pending. Hypertension: On HCTZ, losartan, amlodipine, metoprolol at home. Hold blood meds in the weakness, falls, ISIDRO and normotension. Frequent falling: PT and OT to of the morning. Suspect she has been falling because of weakness from dehydration from diarrhea and low blood pressure from her blood pressure meds along with the initiation of muscle relaxer on Thursday. Will hold baclofen at this time. Further recommendations pending PT/OT. Continue home famotidine and omeprazole for GERD. Full code Cardiac diet Heparin subcu 5000 units 3 times daily
[2024-04-12] MEDS: HEPARIN SODIUM 5,000 UNIT/ML VIAL 5000 UNIT SQ (20:57)
[2024-04-12] MEDS: PANTOPRAZOLE 40MG TABLET 40 MG PO (20:58)
--- NOTE | 2024-04-13 03:28 | PC.NURSE ---
Pt is alert and oriented x4 and currently tolerating RA well. Pt has had no complaints this shift, pt denies pain. Pt has a Hx of falls and was advised to ask for help when up to bathroom. Pt bed alarm on and working. Pt has slept well this shift and no other acutre changes are noted.
[2024-04-13 04:00] VITALS: BP 128/62; PULSE 72; RESP 16; TEMP 36.9; O2SAT 98; BMI 36.1
[2024-04-13 07:48] LABS: Basophils % 0.3 % (0.1-2.0); Eosinophils # 0.2 K/mm3 (0.0-0.4); Eosinophils % 4.1 % (0.1-12.0); Hematocrit 33.3 % (37.0-47.0); Hemoglobin 11.1 g/dL (12.2-16.2); Lymphocytes # 1.8 K/mm3 (0.7-4.5); Lymphocytes % 34.7 % (10-50); Mean Corpuscular HGB Conc 33.4 g/dL (31.8-35.4); Mean Corpuscular Volume 92.7 fl (81-99); Monocytes # 0.3 K/mm3 (0.1-1.0); Monocytes % 6.3 % (1.7-9.3); Neutrophils # 2.8 K/mm3 (1.8-7.8); Neutrophils % 54.6 % (37.0-80.0); Platelet Count 258 K/mm3 (142-424); Red Blood Count 3.59 M/mm3 (4.20-5.40); Red Cell Distribution Width 14.3 % (11.5-17.5); White Blood Count 5.2 K/mm3 (4.8-10.8)
[2024-04-13 07:56] LABS: Alanine Aminotransferase 23 U/L (12-78); Albumin Level 3.3 g/dl (3.5-5.0); Albumin/Globulin Ratio 1.3 (1.1-1.8); Alkaline Phosphatase 47 U/L (38-126); Anion Gap 11.2 mEq/L (5-15); Aspartate Amino Transferase 26 U/L (14-36); Bilirubin,Total 0.2 mg/dl (0.2-1.3); Blood Urea Nitrogen 21 mg/dl (7-17); Calcium 8.7 mg/dl (8.4-10.2); Carbon Dioxide 26 mmol/L (22.0-30.0); Chloride 105 mmol/L (98-107); Creatinine Clearance Estimated 42 mL/min (50-200); Estimated Glomerular Filt Rate 30 ml/min (>60); GFR (African American) 36 ML/MIN (>60); Globulin 2.6 g/dL (1.3-3.2); Glucose 127 mg/dl (74-100); Magnesium 1.5 mg/dl (1.6-2.3); Potassium 4.2 mmoL/L (3.5-5.1); Sodium 138 mmol/L (136-145); Total Protein,Serum 5.9 g/dl (6.3-8.2)
[2024-04-13 08:00] VITALS: BP 162/82; PULSE 77; RESP 20; TEMP 36.6; O2SAT 100
--- NOTE | 2024-04-13 08:17 | HMH.PHAINT1 ---
Pharmacy Intervention Comments: home medication list verified using list from outpatient pharmacy
--- NOTE | 2024-04-13 08:21 | P.DS_ITS ---
General Admission date:: 04/12/24 Discharge date: 04/13/24 HPI HPI HPI: Ms. Munson is a 73-year-old female with history of hypertension, neck pain, arthritis, GERD. Reports she came to the ER because of development of diarrhea since Thursday. Concern for dehydration and falling at home. She has had increased falls over the past 24 hours and fell 8 times yesterday. Saw her pain doctor on Thursday and was given muscle relaxer. Has felt more weak since. Has had increased somnolence and been hard to wake per her report. Has degenerative disease in her neck shown on prior MRI. States she started the muscle relaxer on Thursday. Appears to be baclofen from her chart review. Has had symptoms consistent with enteritis versus medication side effect since. On presentation to the ER today, workup concerning for finding of UTI with grossly abnormal urinalysis. Labs concerning for electrolyte disturbances and ISIDRO. Medicine consulted for admission and further management. Patient quite weak, needs therapy eval. On evaluation after arriving to the floor. Is stable on room air. Alert and oriented x 4. Eating dinner on interview. Sister at bedside. Denies any chest pain, shortness of breath, nausea or vomiting. No fevers. Hospital Course Hospital Course Hospital Course: 73-year-old female with diarrhea over the past 4 days, developed weakness, falling. Brought to the ER. Found to have UTI and ISIDRO. Discussed case with ER physician, request admission for fluid rehydration, treatment of UTI, and therapy eval. I agreed to admit for further management. Tolerating p.o. intake. Responded well to IV fluids. Worked with therapy, at baseline level of function. Recommended using a cane when she gets around the house or when she is out and about. Will continue antibiotics for UTI. Stable to discharge home with close follow-up with PCP for repeat labs. Problems addressed as follows: ISIDRO Hypomagnesemia -Prerenal with creatinine 2.6, BUN 26. Magnesium 1.4. Patient has continued to take her blood pressure meds prior to admission. Likely component of injury from her ARB as well. Held her blood pressure meds during admission. Administered IV fluids in the ER and overnight. Showed improvement clinically with creatinine improved to 1.7 morning of discharge. BUN 21. Making urine. Independently mobile. Will continue magnesium supplementation orally at discharge. Needs repeat CMP and magnesium level in 1 week. UTI: Urinalysis grossly abnormal with leukesterase and bacteria. Growing gram- negative rods. Received ceftriaxone x 1 in the ER. Urine culture still pending. Will transition to ciprofloxacin to complete 3 days of antibiotic therapy for uncomplicated cystitis. Hypertension: Hold patient's losartan. Okay to resume amlodipine, metoprolol, HCTZ given her blood pressure once he is on day of discharge. Consider resuming losartan after follow-up with PCP if kidney function back to normal. Frequent falling: PT and OT evaluated patient during admission. Stable to discharge home. Recommend cane use after discharge. Continue home famotidine and omeprazole for GERD. Total time spent on discharge 32 minutes in counseling, documentation, chart review, and direct care with patient. Exam Data for Last 24 hours Vital signs and Labs for Last 24 Hours: Temp Pulse Resp BP Pulse Ox O2 Del Method 97.8 F 77 20 162/82 H 100 Room Air 04/13/24 08:00 04/13/24 08:00 04/13/24 08:00 04/13/24 08:00 04/13/24 08:00 04/13/24 08:00 Laboratory Results - last 24 hr 04/12/24 09:02: WBC 8.3, RBC 4.03 L, Hgb 12.2, Hct 37.0, MCV 91.9, MCH 30.2, MCHC 32.8, RDW 14.2, Plt Count 348, MPV 8.3, Neut % (Auto) 64.3, Lymph % (Auto) 26.3, [place] % (Auto) 6.2, Eos % (Auto) 2.8, Baso % (Auto) 0.5, Neut # (Auto) 5.3, Lymph # (Auto) 2.2, [place] # (Auto) 0.5, Eos # (Auto) 0.2, Baso # (Auto) 0.0, Sodium 139, Potassium 4.1, Chloride 103, Carbon Dioxide 29, Anion Gap 11.1, BUN 26 H, Creatinine 2.60 H, Estimated Creat Clear 27, Estimated GFR 18 L*, Est GFR ( Amer) 22 L, Glucose 133 H, Calcium 8.8, Magnesium 1.4 L, Total Bilirubin 0.3, AST 26, ALT 23, Alkaline Phosphatase 53, Total Protein 7.0, Albumin 3.9, Globulin 3.1, Albumin/Globulin Ratio 1.3, TSH 5.55 H, Thyroxine (T4) 10.7 04/12/24 09:26: Urine Color Yellow, Urine Appearance Clear, Urine pH 7.0, Ur Specific [place] <= 1.005, Urine Protein Negative, Urine Glucose (UA) Negative, Urine Ketones Negative, Urine Blood Negative, Urine Nitrate Negative, Urine Bilirubin Negative, Urine Urobilinogen 0.2, Ur Leukocyte Esterase 2+ A, Urine RBC None, Urine WBC 10-20, Ur Squamous Epith Cells 5-10, Urine Bacteria 2+ 04/12/24 13:50: Sodium 141, Potassium 3.9, Chloride 107, Carbon Dioxide 28, Anion Gap 9.9, BUN 22 H, Creatinine 2.10 H, Estimated Creat Clear 34, Estimated GFR 23 L, Est GFR ( Amer) 28 L D, Glucose 130 H, Calcium 8.2 L 04/13/24 05:57: WBC 5.2 D, RBC 3.59 L, Hgb 11.1 L, Hct 33.3 L, MCV 92.7, MCH 31.0, MCHC 33.4, RDW 14.3, Plt Count 258 D, MPV 9.0, Neut % (Auto) 54.6, Lymph % (Auto) 34.7, [place] % (Auto) 6.3, Eos % (Auto) 4.1, Baso % (Auto) 0.3, Neut # (Auto) 2.8, Lymph # (Auto) 1.8, [place] # (Auto) 0.3, Eos # (Auto) 0.2, Baso # (Auto) 0.0, Sodium 138, Potassium 4.2, Chloride 105, Carbon Dioxide 26, Anion Gap 11.2, BUN 21 H, Creatinine 1.70 H, Estimated Creat Clear 42, Estimated GFR 30 L, Est GFR ( Amer) 36 L D, Glucose 127 H, Calcium 8.7, Magnesium 1.5 L , Total Bilirubin 0.2, AST 26, ALT 23, Alkaline Phosphatase 47, Total Protein 5.9 L, Albumin 3.3 L D, Globulin 2.6, Albumin/Globulin Ratio 1.3 I & O for Last 24 hours: Intake & Output 04/10/24 04/11/24 04/12/24 04/13/24 23:59 23:59 23:59 23:59 Intake Total 735 / 735 Output Total 0 / 0 0 / 0 Balance 735 / 735 0 / 0 Weight 88.507 kg Constitutional Constitutional: no acute distress, obese and cooperative *Routine HEENT Exam Head: Present normocephalic Eye: Present EOMI and PERRL ENT: Present mucous membranes moist *Routine Neck Exam Neck: Present supple; Absent lymphadenopathy *Routine Respiratory Exam Respiratory: Present CTA bilaterally; Absent respiratory distress, rhonchi, whee zes or crackles *Routine Cardiovascular Exam Cardiovascular: Present RRR *Routine Abdominal Exam Abdominal: Present soft and normoactive bowel sounds; Absent tenderness *Routine Extremities Exam Extremities: Absent cyanosis, clubbing or edema *Routine Skin Exam Skin: Present warm; Absent rash *Routine Neurological Exam Neurological: Present alert, oriented X3 and moving all extremities; Absent altered mental status Results Data Completed and Pending Labs on day of discharge: Labs from last 24 hours 04/13/24 04/12/24 04/12/24 05:57 13:50 09:26 WBC 5.2 D RBC 3.59 L Hgb 11.1 L Hct 33.3 L MCV 92.7 MCH 31.0 MCHC 33.4 RDW 14.3 Plt Count 258 D MPV 9.0 Neut % (Auto) 54.6 Lymph % (Auto) 34.7 [place] % (Auto) 6.3 Eos % (Auto) 4.1 Baso % (Auto) 0.3 Neut # (Auto) 2.8 Lymph # (Auto) 1.8 [place] # (Auto) 0.3 Eos # (Auto) 0.2 Baso # (Auto) 0.0 Sodium 138 141 Potassium 4.2 3.9 Chloride 105 107 Carbon Dioxide 26 28 Anion Gap 11.2 9.9 BUN 21 H 22 H Creatinine 1.70 H 2.10 H Estimated Creat Clear 42 34 Estimated GFR 30 L 23 L Est GFR ( Amer) 36 L D 28 L D Glucose 127 H 130 H Calcium 8.7 8.2 L Magnesium 1.5 L Total Bilirubin 0.2 AST 26 ALT 23 Alkaline Phosphatase 47 Total Protein 5.9 L Albumin 3.3 L D Globulin 2.6 Albumin/Globulin Ratio 1.3 TSH Thyroxine (T4) Urine Color Yellow Urine Appearance Clear Urine pH 7.0 Ur Specific [place] <= 1.005 Urine Protein Negative Urine Glucose (UA) Negative Urine Ketones Negative Urine Blood Negative Urine Nitrate Negative Urine Bilirubin Negative Urine Urobilinogen 0.2 Ur Leukocyte Esterase 2+ A Urine RBC None Urine WBC 10-20 Ur Squamous Epith Cells 5-10 Urine Bacteria 2+ 04/12/24 09:02 WBC 8.3 RBC 4.03 L Hgb 12.2 Hct 37.0 MCV 91.9 MCH 30.2 MCHC 32.8 RDW 14.2 Plt Count 348 MPV 8.3 Neut % (Auto) 64.3 Lymph % (Auto) 26.3 [place] % (Auto) 6.2 Eos % (Auto) 2.8 Baso % (Auto) 0.5 Neut # (Auto) 5.3 Lymph # (Auto) 2.2 [place] # (Auto) 0.5 Eos # (Auto) 0.2 Baso # (Auto) 0.0 Sodium 139 Potassium 4.1 Chloride 103 Carbon Dioxide 29 Anion Gap 11.1 BUN 26 H Creatinine 2.60 H Estimated Creat Clear 27 Estimated GFR 18 L* Est GFR ( Amer) 22 L Glucose 133 H Calcium 8.8 Magnesium 1.4 L Total Bilirubin 0.3 AST 26 ALT 23 Alkaline Phosphatase 53 Total Protein 7.0 Albumin 3.9 Globulin 3.1 Albumin/Globulin Ratio 1.3 TSH 5.55 H Thyroxine (T4) 10.7 Urine Color Urine Appearance Urine pH Ur Specific [place] Urine Protein Urine Glucose (UA) Urine Ketones Urine Blood Urine Nitrate Urine Bilirubin Urine Urobilinogen Ur Leukocyte Esterase Urine RBC Urine WBC Ur Squamous Epith Cells Urine Bacteria DS: Diagnosis Discharge Diagnosis (1) ISIDRO (acute kidney injury): Status: Acute Code(s): N17.9 - Acute kidney failure, unspecified (2) Acute UTI: Status: Acute Code(s): N39.0 - Urinary tract infection, site not specified (3) General weakness: Status: Acute Code(s): R53.1 - Weakness (4) Falls frequently: Status: Acute Code(s): R29.6 - Repeated falls (5) Chronic kidney disease, stage 3a: Status: Acute Code(s): N18.31 - Chronic kidney disease, stage 3a Problem details: Will follow this closely. Patient has been stable over the last few lab draws. (6) Essential hypertension: Status: Acute Code(s): I10 - Essential (primary) hypertension Problem details: Patient is taking amlodipine, losartan, metoprolol and hydrochlorothiazide. All of these together are helping with her hypertension. Blood pressure today was 128/70. Pressure in June was 112/64. (7) Depression: Status: Acute Code(s): F32.9 - Major depressive disorder, single episode, unspecified Qualifiers: Depression Type: unspecified Qualified Code(s): F32.A - Depression, unspecified Problem details: Sertraline is working here continue. (8) Hypomagnesemia: Status: Acute Code(s): E83.42 - Hypomagnesemia Meds Home Medications and Allergies Home Medications ?Medication ?Instructions ?Recorded ?Confirmed ?Type aspirin 81 mg tablet,delayed 81 mg PO DAILY 06/18/21 04/12/24 History release (Adult Aspirin Regimen) alendronate 70 mg tablet (Fosamax) 70 mg PO WEEKLY #12 tabs 01/14/24 04/12/24 Rx omeprazole 20 mg capsule,delayed 20 mg PO DAILY #30 caps 03/21/24 04/12/24 Rx release amlodipine 10 mg tablet 10 mg PO DAILY 04/12/24 04/12/24 History famotidine 40 mg tablet 40 mg PO BID 04/12/24 04/12/24 History hydrochlorothiazide 25 mg tablet 25 mg PO DAILY 04/12/24 04/12/24 History losartan 100 mg tablet 100 mg PO DAILY 04/12/24 04/12/24 History metoprolol succinate 100 mg 100 mg PO DAILY 04/12/24 04/12/24 History tablet,extended release 24 hr ciprofloxacin HCl 500 mg tablet 500 mg PO BID 3 days #6 tabs 04/13/24 Rx magnesium oxide 400 mg (241.3 mg 400 mg PO BID 10 days #20 tabs 04/13/24 Rx magnesium) tablet New Prescriptions to Start Prescriptions: ciprofloxacin HCl Evaristo Morrow magnesium oxide Evaristo Morrow Allergies Allergy/AdvReac Type Severity Reaction Status Date / Time Sulfa (Sulfonamide Allergy Verified 03/21/24 10:36 Antibiotics) lisinopril AdvReac Intermediate Cough Verified 03/21/24 10:36 Discharge Plan Disposition Patient Disposition: Home, Self-Care Condition: Good Follow up Plan Follow up with: Bob Weber DO [Primary Care Provider] - 04/20/24 11:15 am Prescriptions/Medication Reconciliation: New magnesium oxide 400 mg (241.3 mg magnesium) Tablet 400 mg PO BID 10 Days Qty: 20 0RF ciprofloxacin HCl 500 mg tablet 500 mg PO BID 3 Days Qty: 6 0RF Continued aspirin [Adult Aspirin Regimen] 81 mg tablet,delayed release (DR/EC) 81 mg PO DAILY alendronate [Fosamax] 70 mg tablet 70 mg PO WEEKLY Qty: 12 4RF omeprazole 20 mg capsule,delayed release(DR/EC) 20 mg PO DAILY Qty: 30 2RF famotidine 40 mg tablet 40 mg PO BID Rx Instructions: TAKE ONE TABLET BY MOUTH TWICE DAILY metoprolol succinate 100 mg tablet extended release 24 hr 100 mg PO DAILY Rx Instructions: TAKE ONE TABLET BY MOUTH EVERY DAY hydrochlorothiazide 25 mg tablet 25 mg PO DAILY Rx Instructions: TAKE ONE TABLET BY MOUTH EVERY DAY amlodipine 10 mg tablet 10 mg PO DAILY Rx Instructions: TAKE ONE TABLET BY MOUTH EVERY DAY Held losartan 100 mg tablet 100 mg PO DAILY Hold Instructions: Pending follow-up with primary care Rx Instructions: TAKE ONE TABLET BY MOUTH EVERY DAY Discontinued baclofen 5 mg tablet 5 mg PO HS Qty: 14 0RF Problem Reconciliation Problems Reviewed?: Yes Patient Discharge Instructions ACTIVITY: Continue current activity DIET: continue same diet Patient Instructions: DI for Urinary Tract Infection (UTI), How to Prevent Falls, DI for Acute Kidney Injury Print Language: Lithuanian Providers Primary Care Provider: Bob Weber Admit Provider: Evaristo Morrow Attending Provider: Evaristo Morrow
--- NOTE | 2024-04-13 09:04 | HMH.PTEV ---
Physical Therapy Evaluation Rehab PT IP Evaluation Start: 04/12/24 15:34 Freq: ONCE Status: Active Protocol: Document 04/13/24 09:00 TRIPP (Rec: 04/13/24 09:03 [email or web address] [id number]) Subjective/History History History Per H&P: Ms. Munson is a 73-year-old female with history of hypertension, neck pain, arthritis, GERD. Reports she came to the ER because of development of diarrhea since Thursday. Concern for dehydration and falling at home. She has had increased falls over the past 24 hours and fell 8 times yesterday. Saw her pain doctor on Thursday and was given muscle relaxer. Has felt more weak since. Has had increased somnolence and been hard to wake per her report. Has degenerative disease in her neck shown on prior MRI. States she started the muscle relaxer on Thursday. Appears to be baclofen from her chart review. Has had symptoms consistent with enteritis versus medication side effect since. On presentation to the ER today, workup concerning for finding of UTI with grossly abnormal urinalysis. Labs concerning for electrolyte disturbances and ISIDRO. Medicine consulted for admission and further management. Patient quite weak, needs therapy eval. Subjective Subjective PLOF per pt report: Pt was IND with functional mobility with intermittent use of RW. Multiple falls reported prior to admission. Living with in a single story home with 1 JOSE DAVID. Driving prior to admission. New diagnosis of cancer in past 12 No months? Rehab PT IP Eval Objective Appearance Patient Behavior Appropriate,Cooperative Patient Orientation Person,Place,Birthday, Situation Difficulty following instructions none Speech Pattern Clear Ambulation Patient Able to Ambulate Yes Ambulation Observation IP General Gait Pattern Observation No Deviations/Normal Ambulation Distance (feet) 30 Ambulation Assistive Device None Ambulation Ability Contact Guard/Hand Hold Balance Ability to Arise Able, uses arms to help Sitting Balance Steady, safe Standing Balance Steady, wide stance Transfers Bed Transfer Ability Supervision/Stand by Sit to Stand Bed Transfer Ability Supervision/Stand by Rehab PT IP prob,goals,plan Problems Date of Evaluation: 04/13/24 PT IP Problems Transfers,Gait,Balance,Safety Rehab Potential Rehab Potential Good Equipment Needs Assistive Devices Rolling / Wheeled Walker Plan PT Intervention Plan Transfers,Gait,Balance,Safety, Therapeutic Exercise Other Intervention Plan 1-2 times PT Plan Frequency Daily Duration LOS Discharge Goals Bed Transfer Ability Independent Sit to Stand Chair Transfer Ability Independent Ambulation Assistive Device Rolling Walker Ambulation Distance (feet) 40 Discharge Plan PT Discharge Plan Initial physical therapy evaluation performed. Patient presents below baseline at this time in ambulation endurance, gait, and strength. Pt would benefit from skilled PT while at [facility] to prevent further functional decline and maximize safety with mobility . Pt safe to d/c home when deemed medically necessary d/t current level of mobility, home set-up, and family support. PT recommending home health PT services to address deficits. Eval Complexity Eval Charge Codes 21462 - Moderate Complexity PHYSICIAN CERTIFICATION: I certify the specified therapy services for Sofie Munson are required, authorized, and reviewed every 30 days.
--- NOTE | 2024-04-13 09:35 | HMH.OTEV ---
OT Inpatient Evaluation Rehab OT IP Evaluation Start: 04/12/24 15:34 Freq: ONCE Status: Active Protocol: Document 04/13/24 09:17 [email or web address] (Rec: 04/13/24 09:35 [email or web address] [id number]) Rehab OT IP Assessment Subjective History Ms. Munson is a 73-year-old female with history of hypertension, neck pain, arthritis, GERD. Reports she came to the ER because of development of diarrhea since Thursday. Concern for dehydration and falling at home. She has had increased falls over the past 24 hours and fell 8 times yesterday. Saw her pain doctor on Thursday and was given muscle relaxer. Has felt more weak since. Has had increased somnolence and been hard to wake per her report. Has degenerative disease in her neck shown on prior MRI. States she started the muscle relaxer on Thursday. Appears to be baclofen from her chart review. Has had symptoms consistent with enteritis versus medication side effect since. On presentation to the ER today, workup concerning for finding of UTI with grossly abnormal urinalysis. Labs concerning for electrolyte disturbances and ISIDRO. Medicine consulted for admission and further management. Patient quite weak, needs therapy eval. On evaluation after arriving to the floor. Is stable on room air. Alert and oriented x 4. Eating dinner on interview. Sister at bedside. Denies any chest pain, shortness of breath, nausea or vomiting. No fevers. Patient lives in 1 weir home. Independent with ADLs and fx' l mobility prior to hospitalization. Subjective I can get up. Analysis Patient bed mobility, transfers, ambulation and LB drsg with needing CGAx2/SBA. Patient demonstrated ability to maneuver safely within environment. Objective Patient Orientation Person,Name,Age,Birthday,Year Right Upper Extremity Gross ROM WFL Left Upper Extremity Gross ROM WFL Bed Mobility bed mobility - supine/sit Assist Level Supervision/Stand by Transfer Training Sit/Stand/Step Transfer Assist Level Contact Guard/Hand Hold Chair Transfer Ability Contact Guard/Hand Hold Chair Transfer Technique Sit to/from Ambulatory Chair Transfer Assistive Devices Rolling Walker Rehab OT IP prob,goals,plan Problems Date of Evaluation: 04/13/24 OT IP Problems Bed Mobility,Transfers,Balance ,Self care,Safety Rehab Potential Rehab Potential Good Equipment Needs Assistive Devices Rolling / Wheeled Walker Plan OT intervention Plan Bed Mobility,Transfers,Balance ,Self care,Safety,Therapeutic Exercise OT Plan Frequency Daily Duration LOS Discharge Goals Bed Mobility Ability Standby Assistance Sit to Stand Chair Transfer Ability Supervision/Stand by Chair Transfer Ability Supervision/Stand by Chair Transfer Technique Sit to/from Ambulatory Chair Transfer Assistive Devices Rolling Walker Discharge Plan OT Discharge Plan Recommend HH services at this time. Patient to continue skilled OT services at this time while here at [facility]. Eval Complexity Eval Charge Codes 52872 - Low Complexity PHYSICIAN CERTIFICATION: I certify the specified therapy services for Sofie Munson are required, authorized, and reviewed every 30 days.
[2024-04-13] MEDS: HEPARIN SODIUM 5,000 UNIT/ML VIAL 5000 UNIT SQ (09:38)
[2024-04-13] MEDS: ASPIRIN EC 81MG TABLET 81 MG PO (09:38)
--- NOTE | 2024-04-13 09:53 | SW/DCPLANNER ---
I spoke w/ patient regarding plans once medically stable for discharge. PT evaluated patient and recommended home w/ home health services. Patient is not interested in home health services at this time. Patient plans to visit her daughter's house out of town this weekend. I informed patient if she decides she would like to have services to please reach out and we can set up home health. Patient stated that she may discharge home later today.
[2024-04-13] MEDS: MAGNESIUM OXIDE 400MG TABLET 400 MG PO (10:56)
--- NOTE | 2024-04-14 15:23 | CARE MANAGER ---
Contacted patient related to hospital discharge. Patient states that she is doing much better. She is aware of new medications, holding medications, and stopping medications. She is aware of follow up appointment and denies any questions or concerns. ASH Ny
== END 2024-04-13 12:45 | disposition home or self-care (01) ==
LOC: ER 15:29 → 2ND 15:44
PROVIDERS: Admitting Provider Internal Medicine Adolescent Medicine; Emergency Provider Emergency Medicine; PCP Internal Medicine; Visit Provider Internal Medicine Adolescent Medicine
DX: N17.9 Acute kidney failure, unspecified (principal); N39.0 Urinary tract infection, site not specified; R53.1 Weakness; R29.6 Repeated falls; M50.30 Other cervical disc degeneration, unspecified cervical region; N18.31 Chronic kidney disease, stage 3a; I12.9 Hypertensive chronic kidney disease with stage 1 through stage 4 chronic kidney disease, or unspecified chronic kidney disease; F32.9 Major depressive disorder, single episode, unspecified; E83.42 Hypomagnesemia; R19.7 Diarrhea, unspecified; K21.9 Gastro-esophageal reflux disease without esophagitis; Z79.899 Other long term (current) drug therapy
CPT/HCPCS: 36415; 70450; 71045; 72125; 72128; 72131; 72170; 74176; 80048; 80050; 80053; 81001; 83735; 84436; 84443; 85025; 87086; 87088; 87186; 93005; 97162; 97165; 99285; G0378; J0696; J1644; J3475; J7120

== ENCOUNTER 2024-05-19 10:24 | Outpatient (POV) | payer MEDICARE, SELFPAY ==
[2024-05-19 10:45] VITALS: BP 150/84; PULSE 78; RESP 16; O2SAT 96; BMI 36.6
--- NOTE | 2024-05-19 11:09 | EXP.PAIN.SOA ---
[facility] Disclaimer: The information contained in this section may have been updated after the patient was seen, as this information can be updated by other users. Medical History Depression Sertraline is working here continue. Anxiety Patient is on sertraline and this appears to be working well for her. We will continue. Essential hypertension Surgical History History of total right hip arthroplasty History of 2 sections Family History Other Unknown family medical history Social History Smoking Status: Never smoker alcohol intake: never substance use type: denies use current occupational status: unemployed Travel in the last 8 weeks: None household members: family housing: house PM Subjective & Objective Subjective Subjective:: Patient is a pleasant 73-year-old female who presents today for follow-up. Today she rates her pain a 5 out of 10. Patient does state from her last visit that she ended up having to be hospitalized due to a combination of dehydration, low magnesium and UTI. Patient states that she had no idea any of this was going on. She states that she had tried the new muscle relaxer we gave her at bedtime and that her did have trouble waking her up and then she felt like she did have more weakness in her legs. Patient states it was then where she started having more falls that she went to the ER and found out that she had several things going on. Patient did end up having acute kidney injury on top of it. She does state that she is feeling much better today although she is still having the pain in her neck along the 1 side by her right ear. Patient states that it does interfere with her activities and that she is still going to yoga however occasionally this will be more bothersome. Patient does state that she always has to try and make sure that she has a chair behind her that we will add additional support. Patient states that she did also buy additional types of cervical pillows however has not yet noticed significant relief. Patient does state that she did apply some Biofreeze and around her neck however she feels like a lot of the pain is up more in her hairline and she did not try that here. Patient has been tried on compounded cream in the past with minimal improvement. She does state that she is scheduled for a cataract surgery coming up however she is unsure if it will actually go through or not. Her Lakhwinder has been reviewed and is appropriate. Review of Systems: General: No recent weight changes, no fever, no sleep disturbances Respiratory: No cough, no shortness of air, no recurring pulmonary infections Cardiovascular/peripheral vascular: No chest pain, no palpitations, no edema, no shortness of breath Gastrointestinal: No new onset incontinence, normal bowel movements reported Genitourinary: No new onset incontinence Musculoskeletal: Right-sided neck pain Psychiatric: [Normal mood/affect] Neurological: [Denies weakness in extremities], [denies balance issues] Pain at rest (0-10 scale): 5 Objective Objective:: Physical Exam: General: Alert and oriented x3, no acute distress, pleasant and cooperative Lungs: Respirations even and unlabored, symmetrical chest expansion Eyes: PERRL Musculoskeletal: Flexion and extension of cervical [spine] somewhat guarded secondary to pain, [antalgic gait noted] point tenderness along right cervical paraspinous Neurological: Speech clear, no gross sensory deficit Has patient had previous pain injection?: No Conservative treatment options previously tried: Home exercise plan Length of treatment: Longer than 6 weeks Meds Home Medications and Allergies Home Medications ?Medication ?Instructions ?Recorded ?Confirmed ?Type aspirin 81 mg tablet,delayed 81 mg PO DAILY 06/18/21 05/19/24 History release (Adult Aspirin Regimen) alendronate 70 mg tablet (Fosamax) 70 mg PO WEEKLY #12 tabs 01/14/24 05/19/24 Rx omeprazole 20 mg capsule,delayed 20 mg PO DAILY #30 caps 03/21/24 05/19/24 Rx release famotidine 40 mg tablet 40 mg PO BID 04/12/24 05/19/24 History amlodipine 10 mg tablet 20 mg PO DAILY 04/20/24 05/19/24 History chlorthalidone 25 mg tablet 25 mg PO DAILY #30 tabs 05/03/24 05/19/24 Rx losartan 50 mg tablet 100 mg (2 x 50 mg) PO DAILY 30 05/03/24 05/19/24 Rx days #60 tabs magnesium gluconate 27.5 mg 27.5 mg PO BID #60 tabs 05/03/24 05/19/24 Rx magnesium (500 mg) tablet metoprolol succinate 50 mg 50 mg PO DAILY #30 tabs 05/03/24 05/19/24 Rx tablet,extended release 24 hr New Prescriptions to Start Prescriptions: Allergies Allergy/AdvReac Type Severity Reaction Status Date / Time Sulfa (Sulfonamide Allergy Verified 05/03/24 09:31 Antibiotics) lisinopril AdvReac Intermediate Cough Verified 05/03/24 09:31 Assessment and Plan *Assessment and plan (1) Myofascial pain: Status: Acute Category: Medical Code(s): M79.18 - Myalgia, other site Plan I did discuss with the patient in future she may benefit from additional injections such as trigger point injections however due to the possibility of upcoming cataract surgery we will hold off on this. I did also discuss at length with the patient regarding making sure that she does get updated lab work to see that her kidney function is improving. Patient does state that she is scheduled for follow-up with PCP on May 31. We will follow-up with the patient in 1 month for reevaluation of symptoms and plan of care. Patient has been instructed to contact the clinic with any concerns before the next appointment. Dr. Ward has reviewed this note and agrees with this plan of care. This note was dictated using voice recognition software and make contain errors or omissions. All injections are used with Lidocaine or Bupivacaine and Depo Medrol.
== END 2024-05-19 23:59 | disposition home or self-care (01) ==
PROVIDERS: PCP Internal Medicine; Visit Provider Nurse Practitioner Family
DX: M79.18 Myalgia, other site (principal); Z96.641 Presence of right artificial hip joint; Z73.89 Other problems related to life management difficulty
CPT/HCPCS: 99212; G0463

== ENCOUNTER 2024-05-31 13:36 | Outpatient (CLI) | payer MEDICARE, SELFPAY ==
[2024-05-31 18:51] LABS: Basophils # 0.1 K/mm3 (0-0.2); Basophils % 0.6 % (0.1-2.0); Eosinophils # 0.2 K/mm3 (0.0-0.4); Eosinophils % 1.9 % (0.1-12.0); Hematocrit 43.9 % (37.0-47.0); Hemoglobin 13.9 g/dL (12.2-16.2); Lymphocytes # 2.4 K/mm3 (0.7-4.5); Lymphocytes % 21.3 % (10-50); Mean Corpuscular HGB Conc 31.6 g/dL (31.8-35.4); Mean Corpuscular Hemoglobin 30.5 pg (27.0-31.2); Mean Corpuscular Volume 96.3 fl (81-99); Mean Platelet Volume 10.1 fl (7.4-10.4); Monocytes # 0.5 K/mm3 (0.1-1.0); Monocytes % 4.7 % (1.7-9.3); Neutrophils # 8.1 K/mm3 (1.8-7.8); Neutrophils % 71.4 % (37.0-80.0); Platelet Count 338 K/mm3 (142-424); Red Blood Count 4.55 M/mm3 (4.20-5.40); White Blood Count 11.3 K/mm3 (4.8-10.8)
[2024-05-31 19:20] LABS: Alanine Aminotransferase 36 U/L (12-78); Albumin Level 4.2 g/dl (3.5-5.0); Albumin/Globulin Ratio 1.2 (1.1-1.8); Alkaline Phosphatase 50 U/L (38-126); Anion Gap 13.4 mEq/L (5-15); Aspartate Amino Transferase 30 U/L (14-36); Bilirubin,Total 0.6 mg/dl (0.2-1.3); Blood Urea Nitrogen 23 mg/dl (7-17); Calcium 9.5 mg/dl (8.4-10.2); Carbon Dioxide 27 mmol/L (22.0-30.0); Chloride 101 mmol/L (98-107); Chol/HDL Ratio 4.8 (1-3.5); Cholesterol 173 mg/dl (140-200); Estimated Glomerular Filt Rate 49 ml/min (>60); GFR (African American) 59 ML/MIN (>60); Globulin 3.4 g/dL (1.3-3.2); Glucose 158 mg/dl (74-100); HDL Cholesterol 36 mg/dl (40-60); Magnesium 1.7 mg/dl (1.6-2.3); Potassium 4.4 mmoL/L (3.5-5.1); Sodium 137 mmol/L (136-145); Total Protein,Serum 7.6 g/dl (6.3-8.2); Triglycerides 183 mg/dl (30-150); VLDL Cholesterol 37 mg/dL (0-40)
[2024-05-31 19:21] LABS: 25-OH Vitamin D, Total 82.5 ng/mL (30-100)
[2024-05-31 19:31] LABS: Direct LDL Cholesterol 106.46 mg/dL (100-129)
[2024-05-31 19:45] LABS: Creatinine,Urine Random 131 mg/dL (Not Estab.); Microalbumin/Creatinine Ratio 4.7
[2024-05-31 19:56] LABS: Thyroid Stimulating Hormone 2.99 uIU/mL (0.465-4.68)
== END 2024-05-31 23:59 | disposition home or self-care (01) ==
LOC: LAB.DROPOF 06-01 13:36
PROVIDERS: PCP Internal Medicine; Visit Provider Internal Medicine
DX: E66.3 Overweight (principal); R73.03 Prediabetes; R53.83 Other fatigue; E55.9 Vitamin D deficiency, unspecified; N17.9 Acute kidney failure, unspecified; I10 Essential (primary) hypertension
CPT/HCPCS: 80053; 80061; 82043; 82306; 82570; 83735; 84443; 85025

== ENCOUNTER 2024-06-23 14:21 | Outpatient (POV) | payer MEDICARE, SELFPAY ==
[2024-06-23 14:44] VITALS: BP 132/64; PULSE 62; RESP 16; O2SAT 97; BMI 35.1
--- NOTE | 2024-06-23 14:51 | EXP.PAIN.SOA ---
[facility] Disclaimer: The information contained in this section may have been updated after the patient was seen, as this information can be updated by other users. Medical History Depression Anxiety Essential hypertension Surgical History History of total right hip arthroplasty History of 2 sections Family History Other Unknown family medical history Social History Smoking Status: Never smoker alcohol intake: never substance use type: denies use current occupational status: unemployed Travel in the last 8 weeks: None household members: family housing: house PM Subjective & Objective Subjective Subjective:: Patient is a pleasant 73-year-old female who presents today for follow-up. Today she does rate her pain at 3 out of 10 however she states the pain will go to a 9 out of 10 primarily starting off in the mornings. Patient does state her pain is all in her neck and is worse with certain movements such as bending or twisting from [id number]. Patient does state it is a constant aching, throbbing sensation that does interfere with her ability perform activities of daily living such as cooking and cleaning. Patient denies any radiating symptoms into her upper extremities. She states that overall the right side is worse than the left. Patient does also mention that her cataract surgery did get pushed off until next week and that when she had talked to the provider last he had no contraindications with doing steroid injections to help with her pain. Patient does state that she would like to see about going ahead and getting scheduled for a injection due to the worsening pain. Patient continues to try and do conservative treatment including oral medication, heat and ice, topicals, at home stretching exercise for longer than 12 weeks. Her Lakhwinder has been reviewed and is appropriate. Review of Systems: General: No recent weight changes, no fever, no sleep disturbances Respiratory: No cough, no shortness of air, no recurring pulmonary infections Cardiovascular/peripheral vascular: No chest pain, no palpitations, no edema, no shortness of breath Gastrointestinal: No new onset incontinence, normal bowel movements reported Genitourinary: No new onset incontinence Musculoskeletal: Neck pain Psychiatric: [Normal mood/affect] Neurological: [Denies weakness in extremities], [denies balance issues] Pain at rest (0-10 scale): 9 Objective Objective:: Physical Exam: General: Alert and oriented x3, no acute distress, pleasant and cooperative Lungs: Respirations even and unlabored, symmetrical chest expansion Eyes: PERRL Musculoskeletal: Flexion and extension of cervical [spine] somewhat guarded secondary to pain, [antalgic gait noted] positive Kemps test Neurological: Speech clear, no gross sensory deficit Has patient had previous pain injection?: No Conservative treatment options previously tried: Home exercise plan Length of treatment: Longer than 12 weeks Meds Home Medications and Allergies Home Medications ?Medication ?Instructions ?Recorded ?Confirmed ?Type aspirin 81 mg tablet,delayed 81 mg PO DAILY 06/18/21 05/31/24 History release (Adult Aspirin Regimen) alendronate 70 mg tablet (Fosamax) 70 mg PO WEEKLY #12 tabs 01/14/24 05/31/24 Rx chlorthalidone 25 mg tablet 25 mg PO DAILY #30 tabs 05/03/24 05/31/24 Rx losartan 50 mg tablet 100 mg (2 x 50 mg) PO DAILY 30 05/03/24 05/31/24 Rx days #60 tabs magnesium gluconate 27.5 mg 27.5 mg PO BID #60 tabs 05/03/24 05/31/24 Rx magnesium (500 mg) tablet famotidine 40 mg tablet 40 mg PO BID PRN heartburn #60 tabs 05/31/24 05/31/24 Rx metoprolol succinate 50 mg 100 mg (2 x 50 mg) PO DAILY 30 05/31/24 05/31/24 Rx tablet,extended release 24 hr days #60 tabs New Prescriptions to Start Prescriptions: Allergies Allergy/AdvReac Type Severity Reaction Status Date / Time Sulfa (Sulfonamide Allergy Verified 05/31/24 09:37 Antibiotics) lisinopril AdvReac Intermediate Cough Verified 05/31/24 09:37 Assessment and Plan *Assessment and plan (1) Facet arthropathy, cervical: Status: Acute Category: Medical Code(s): M47.812 - Spondylosis without myelopathy or radiculopathy, cervical region (2) Neck pain: Status: Acute Category: Medical Code(s): M54.2 - Cervicalgia Plan Patient is experiencing worsening pain throughout her neck with limited range of motion and a positive Kemps test. I did discuss with the patient that she may benefit from a cervical medial branch block. Risk and benefits were discussed with the patient and she would like to proceed forward with this plan of care. Patient has tried and failed conservative therapy including continued at home stretching exercise for longer than 12 weeks. Patient was counseled if she has significant improvement with her first diagnostic block that we will plan on repeating the block to proceed forward with a cervical RFA at a later date. Patient agrees with this plan of care. Patient will be scheduled for cervical medial branch block bilaterally C5-C6 and C6-C7 under fluoroscopy. Patient has been instructed to contact the clinic with any concerns before the next appointment. Dr. Ward has reviewed this note and agrees with this plan of care. This note was dictated using voice recognition software and make contain errors or omissions. All injections are used with Lidocaine or Bupivacaine and Depo Medrol.
== END 2024-06-23 23:59 | disposition home or self-care (01) ==
LOC: SC.PAIN 14:22
PROVIDERS: PCP Internal Medicine; Visit Provider Nurse Practitioner Family
DX: M47.812 Spondylosis without myelopathy or radiculopathy, cervical region (principal); M54.2 Cervicalgia; Z96.641 Presence of right artificial hip joint; Z73.89 Other problems related to life management difficulty
CPT/HCPCS: 99212; G0463

== ENCOUNTER 2024-06-28 08:28 | Day surgery (SDC) | payer MEDICARE, SELFPAY ==
[2024-06-24 14:24] VITALS: BMI 35.1
[2024-06-28] MEDS: PHENYLEPHRINE 2.5% OPHTH SOLN 2ML OP ×3 (09:00→09:10)
[2024-06-28] MEDS: TETRACAINE 0.5% OPTH SOL 15ML OP ×4 (09:00→09:30)
[2024-06-28] MEDS: CYCLOPENTOLATE 2% OPHTH SOLN 2ML BOTTLE OP ×3 (09:00→09:10)
[2024-06-28 09:05] VITALS: BP 125/93; PULSE 98; RESP 18; TEMP 36.5; O2SAT 98; BMI 35.1
[2024-06-28 09:13] LABS: POC Glucose,Bedside 158 (70-110)
[2024-06-28 09:58] VITALS: BP 145/63; PULSE 59; RESP 18; O2SAT 91
[2024-06-28] MEDS: MIDAZOLAM 2MG/2ML VIAL 1 MG IV (09:58)
[2024-06-28] MEDS: SODIUM CHLORIDE 0.9% 10ML FLUSH SYRINGE 10 ML IV (09:58)
[2024-06-28 10:03] VITALS: BP 152/64; PULSE 55; RESP 18; O2SAT 95
[2024-06-28] MEDS: TOBRAMYCIN/DEX OPTH SUSP 2.5ML OP (10:07)
[2024-06-28] MEDS: TIMOLOL 0.5% OPTH SOLN 5ML OP (10:07)
[2024-06-28 10:08] VITALS: BP 149/69; PULSE 58; RESP 18; O2SAT 95
[2024-06-28] MEDS: LIDOCAINE 1% PF 2ML AMPULE 2 ML IJ (10:08)
[2024-06-28 10:13] VITALS: BP 139/59; PULSE 57; RESP 18; O2SAT 95
[2024-06-28 10:16] VITALS: BP 112/58; PULSE 67; RESP 18; TEMP 36.4; O2SAT 97
--- NOTE | 2024-06-28 11:10 | HMH.PROCNOTE ---
[facility] Procedure Note Date: 06/28/24 Time: 11:10 Procedure Note:: Preoperative Diagnosis: Cataract combined NS Cortical Complex [Right] Eye Postop diagnosis: same Operation: Microscopic phacoemulsification with intraocular lens implant [Right] Eye Specimen: None Blood Loss: None The patient was examined in the office with a complaint of poor vision in the [right] eye. The patient reports that this interferes with ADLs such as reading, watching TV and/or driving or the vision is like looking through a foggy haze and is very troubling. The patient was examined and found to have a visually significant cataract with best corrected vision of [20/400] by refraction and/or glare testing. Treatment options, risks and benefits were explained and the patient elected to have cataract surgery in an attempt to improve their vision. The patient had the eye anesthetized with topical tetracaine, the eye ways prepped and draped in the usual fashion for cataract surgery. A paracentesis and a temporal keratotomy were made. 0.2cc of 1% lidocaine PF was placed into the anterior chamber. And aqueous/viscoelastic exchange was done and a 360 degree capsulorexis was performed. Through hydrodissection and delineation with BSS on a cannula was done. The lens nucleus was phecoemulsified with CDE of [7.96]. Residual cortical material was removed using automated I&A The capsular bag was deepened with viscoelastica and a PCIOL was placed in the capsular bag with good centration and stability. Residual viscoelastic was removed using automated I&A. The keratotomy incision was hydrated with BSS on a cannula. The wound were checked and found to be water tight. IOP was checked digitally and adjusted as needed so as not to be too high. 1 drop of timolol 0.5%, ofloxacin, prednisolone acetate and ketorolac was instilled and eye shield taped over the eye. The patient was taken to recovery in good condition and will be seen postoperatively.
== END 2024-06-28 10:30 | disposition home or self-care (01) ==
LOC: OR 08:30
PROVIDERS: PCP Internal Medicine; Visit Provider Ophthalmology
PROC: (CPT 66984; principal; 2024-06-28 11:00)
DX: H25.811 Combined forms of age-related cataract, right eye (principal); E11.8 Type 2 diabetes mellitus with unspecified complications
CPT/HCPCS: 66984; 82962; J2250; V2632

== ENCOUNTER 2024-07-19 09:54 | Day surgery (SDC) | payer MEDICARE, SELFPAY ==
[2024-07-19 10:27] VITALS: BP 119/72; PULSE 64; RESP 16; TEMP 36.6; O2SAT 100; BMI 36.6
[2024-07-19] MEDS: methylPREDNISolone ACETATE 80MG/ML VIAL 80 MG (10:45)
[2024-07-19] MEDS: BUPIVACAINE 0.25% 10ML INJ 25 MG IJ (10:45)
[2024-07-19] MEDS: LIDOCAINE 1% 5ML PF VIAL 5 ML (10:46)
[2024-07-19] MEDS: IOPAMIDOL-200 (41%);10ML VIAL 10 ML IV (10:47)
--- NOTE | 2024-07-19 10:58 | P.PCN_ITS ---
Procedure Date: 07/19/24 Time: 10:50 Anesthesiologist:: Satya Chong CRNA Complications:: None Pre-procedure Diagnosis:: Degenerative disc cervical spine multilevels. Cervical radiculopathy. Cervical spondylosis. Multilevel cervical facet arthropathy. Post-procedure Diagnosis:: Same. Indications for Procedure:: Patient is a pleasant 73-year-old female who comes our clinic today for a second round of cervical medial branch blocks/facet injections at the bilateral C5-6, C6-7 level. Patient reports posterior cervical neck pain is constant, dull, aching. She reports having difficulty with cervical flexion, extension, left and right rotation. She rates her pain 7/10. Procedure Details:: Informed consent was obtained and the risk and benefits of the procedure was explained to the patient. Patient was taken to the procedure room where noninvasive monitors were placed, including noninvasive blood pressure cuff as well as pulse oximeter. The area over the posterior cervical spine was cleansed using chlorhexidine as a cleansing solution. I anesthetized the skin and subcutaneous tissues with 1% Lidocaine. I placed 25 -gauge spinal needles into the facet joint/ medial branches of C5-6, C6-7 bilaterally. Needle placement was confirmed with fluoroscopy. After confirmation of needle placement, each site was injected with 1 mL of 1% lidocaine and 0.25 % Marcaine and 10 mg of Depo- Medrol. A total of 20 mg of depo medrol was used for bilateral medial branch blocks of C5-6, C6-7 bilaterally. Patient tolerated the procedure without difficulty. There were no complications. Plan and Disposition:: Patient was discharged without incident.
[2024-07-19 11:03] VITALS: BP 104/66; PULSE 69; RESP 16; O2SAT 96
== END 2024-07-19 11:03 | disposition home or self-care (01) ==
PROVIDERS: PCP Internal Medicine; Visit Provider Nurse Anesthetist, Certified Registered
DX: M47.812 Spondylosis without myelopathy or radiculopathy, cervical region (principal); M50.30 Other cervical disc degeneration, unspecified cervical region
CPT/HCPCS: 64490; 64491; J1010; Q9966

== ENCOUNTER 2024-08-01 14:03 | Outpatient (POV) | payer MEDICARE, SELFPAY ==
--- NOTE | 2024-08-01 14:31 | EXP.PAIN.SOA ---
[facility] Disclaimer: The information contained in this section may have been updated after the patient was seen, as this information can be updated by other users. Medical History Diabetes mellitus, type 2 Diabetes mellitus, type 2 Depression Anxiety Essential hypertension Surgical History History of total right hip arthroplasty History of 2 sections Family History Other Unknown family medical history Social History Smoking Status: Never smoker alcohol intake: never substance use type: denies use current occupational status: other Travel in the last 8 weeks: None household members: family housing: house PM Subjective & Objective Subjective Subjective:: Patient is a pleasant 73-year-old female who presents today for follow-up of cervical medial branch block bilaterally C5-C6 and C6-C7 on 07/19/2024. Today she rates her pain a 2 out of 10. Patient states she has had at least 80 to 90% improvement following this procedure. She states that it is still working well. Patient has had significant improved function overall. She does state however that she will occasionally have pain in her head along the right side and that she notices it more prominent when she has been sleeping all night on that side. She states that it is not always tender but does occasionally flareup. Her Lakhwinder has been reviewed and is appropriate. Review of Systems: General: No recent weight changes, no fever, no sleep disturbances Respiratory: No cough, no shortness of air, no recurring pulmonary infections Cardiovascular/peripheral vascular: No chest pain, no palpitations, no edema, no shortness of breath Gastrointestinal: No new onset incontinence, normal bowel movements reported Genitourinary: No new onset incontinence Musculoskeletal: Neck pain Psychiatric: [Normal mood/affect] Neurological: [Denies weakness in extremities], [denies balance issues] Pain at rest (0-10 scale): 2 Objective Objective:: Physical Exam: General: Alert and oriented x3, no acute distress, pleasant and cooperative Lungs: Respirations even and unlabored, symmetrical chest expansion Eyes: PERRL Musculoskeletal: Flexion and extension of cervical [spine] somewhat guarded secondary to pain, [antalgic gait noted] Neurological: Speech clear, no gross sensory deficit Has patient had previous pain injection?: Yes Percent improvement in pain since last injection: 80 to 90% Conservative treatment options previously tried: Home exercise plan Length of treatment: Longer than 12 weeks Meds Home Medications and Allergies Home Medications ?Medication ?Instructions ?Recorded ?Confirmed ?Type alendronate 70 mg tablet (Fosamax) 70 mg PO WEEKLY #12 tabs 01/14/24 07/19/24 Rx magnesium gluconate 27.5 mg 27.5 mg PO BID #60 tabs 05/03/24 07/19/24 Rx magnesium (500 mg) tablet famotidine 40 mg tablet (Pepcid) 40 mg PO BID PRN heartburn 06/24/24 07/19/24 History aspirin 81 mg tablet,delayed 81 mg PO DAILY #90 tabs 07/11/24 07/19/24 Rx release (Adult Aspirin Regimen) chlorthalidone 25 mg tablet 25 mg PO DAILY #90 tabs 07/11/24 07/19/24 Rx losartan 50 mg tablet (Cozaar) 100 mg (2 x 50 mg) PO DAILY #90 07/11/24 07/19/24 Rx tabs metoprolol succinate 50 mg 100 mg (2 x 50 mg) PO DAILY #90 07/11/24 07/19/24 Rx tablet,extended release 24 hr tabs (Toprol XL) New Prescriptions to Start Prescriptions: Allergies Allergy/AdvReac Type Severity Reaction Status Date / Time Sulfa (Sulfonamide Allergy Intermediate Hives Verified 07/11/24 10:05 Antibiotics) lisinopril AdvReac Intermediate Cough Verified 07/11/24 10:05 Assessment and Plan *Assessment and plan (1) Degenerative disc disease, cervical: Status: Acute Category: Medical Code(s): M50.30 - Other cervical disc degeneration, unspecified cervical region (2) Facet arthropathy, cervical: Status: Acute Category: Medical Code(s): M47.812 - Spondylosis without myelopathy or radiculopathy, cervical region Plan Patient has had significant improvement following her cervical medial branch block bilaterally. This is her second block. She did have more than 80 to 90% relief and we will plan on proceeding forward with a cervical RFA at a later date. Patient will return to clinic in 1 month for reevaluation of symptoms and plan of care. Patient has been instructed to contact the clinic with any concerns before the next appointment. Dr. Ward has reviewed this note and agrees with this plan of care. This note was dictated using voice recognition software and make contain errors or omissions. All injections are used with Lidocaine or Bupivacaine and Depo Medrol.
[2024-08-01 14:51] VITALS: BP 155/71; PULSE 66; RESP 16; O2SAT 97; BMI 36.6
== END 2024-08-01 23:59 | disposition home or self-care (01) ==
LOC: SC.PAIN 14:04
PROVIDERS: PCP Internal Medicine; Visit Provider Nurse Practitioner Family
DX: M50.30 Other cervical disc degeneration, unspecified cervical region (principal); M47.812 Spondylosis without myelopathy or radiculopathy, cervical region
CPT/HCPCS: 99212; G0463

== ENCOUNTER 2024-08-17 10:50 | Outpatient (CLI) | payer MEDICARE, SELFPAY ==
[2024-08-17 18:52] LABS: Coronavirus 19, PCR Not Detected (NotDetected); Influenza A, PCR Not Detected (NotDetected); Influenza B, PCR Not Detected (NotDetected)
== END 2024-08-17 23:59 | disposition home or self-care (01) ==
LOC: LAB.DROPOF 08-19 09:33
PROVIDERS: PCP Family Medicine; Visit Provider Family Medicine
DX: R06.02 Shortness of breath (principal)
CPT/HCPCS: 87636

== ENCOUNTER 2024-08-23 15:27 | Inpatient (IN) | payer MEDICARE, SELFPAY ==
[2024-08-23] VITALS (15 sets, daily range): BP systolic 92–128; BP diastolic 48–91; PULSE 56–70; RESP 16–20; TEMP 36.5–36.9; O2SAT 94–99; BMI 34.5; BMI 35.1
--- NOTE | 2024-08-23 16:06 | PC.NURSE ---
charge nurse at bs when rounding on pt no needs
[2024-08-23 16:30] LABS: Basophils # 0.1 K/mm3 (0-0.2); Basophils % 0.4 % (0.1-2.0); Eosinophils # 0.1 K/mm3 (0.0-0.4); Eosinophils % 0.6 % (0.1-12.0); Hematocrit 36.6 % (37.0-47.0); Hemoglobin 12.6 g/dL (12.2-16.2); Lymphocytes # 1.9 K/mm3 (0.7-4.5); Lymphocytes % 16.4 % (10-50); Mean Corpuscular HGB Conc 34.4 g/dL (31.8-35.4); Mean Corpuscular Hemoglobin 29.8 pg (27.0-31.2); Mean Corpuscular Volume 86.6 fl (81-99); Mean Platelet Volume 7.9 fl (7.4-10.4); Monocytes # 0.4 K/mm3 (0.1-1.0); Monocytes % 3.7 % (1.7-9.3); Neutrophils # 9.2 K/mm3 (1.8-7.8); Neutrophils % 78.9 % (37.0-80.0); Platelet Count 372 K/mm3 (142-424); Red Blood Count 4.22 M/mm3 (4.20-5.40); Red Cell Distribution Width 13.6 % (11.5-17.5); White Blood Count 11.6 K/mm3 (4.8-10.8)
--- NOTE | 2024-08-23 16:31 | ECG_ITS ---
APPROVED REPORT Exam: Resting ECG HR:65 bpm ECG Measurements Heart Rate 65 AXES LA 136 P 44 QRSd 94 QRS 45 QT 436 T 45 QTc 447 Conclusion SINUS RHYTHM NORMAL ECG Electronically signed by : SONAM WONG, 08/23/2024 20:41:45
--- NOTE | 2024-08-23 16:34 | XR_ITS ---
PROCEDURE INFORMATION: Exam: XR Chest Exam date and time: 08/23/2024 4:48 PM Age: 73 years old Clinical indication: Cough TECHNIQUE: Imaging protocol: Radiologic exam of the chest. Views: 2 views. COMPARISON: CR XR CHEST PORTABLE 04/12/2024 10:24 AM FINDINGS: Lungs: Calcified granuloma in the right mid lung is stable. The lungs appear otherwise clear. No focal areas of consolidation. Pleural spaces: No pleural effusions. Negative for pneumothorax. Heart/Mediastinum: Cardiac silhouette and pulmonary vasculature are within range of normal. Bones/joints: There is no evidence of acute fracture. The thoracic spine demonstrates mild degenerative changes at multiple levels. IMPRESSION: Negative for an acute cardiopulmonary abnormality.
[2024-08-23 16:39] LABS: Alanine Aminotransferase 35 U/L (12-78); Albumin Level 4.1 g/dl (3.5-5.0); Albumin/Globulin Ratio 1.1 (1.1-1.8); Alkaline Phosphatase 62 U/L (38-126); Anion Gap 12.6 mEq/L (5-15); Aspartate Amino Transferase 40 U/L (14-36); Bilirubin,Total 0.8 mg/dl (0.2-1.3); Blood Urea Nitrogen 23 mg/dl (7-17); Calcium 9.1 mg/dl (8.4-10.2); Carbon Dioxide 28 mmol/L (22.0-30.0); Chloride 89 mmol/L (98-107); Creatinine Clearance Estimated 26 mL/min (50-200); Estimated Glomerular Filt Rate 18 ml/min (>60); GFR (African American) 22 ML/MIN (>60); Globulin 3.7 g/dL (1.3-3.2); Glucose 138 mg/dl (74-100); Lipase 130 U/L (23-300); Magnesium 2.2 mg/dl (1.6-2.3); Potassium 3.6 mmoL/L (3.5-5.1); Sodium 126 mmol/L (136-145); Total Protein,Serum 7.8 g/dl (6.3-8.2)
--- NOTE | 2024-08-23 16:39 | PC.NURSE ---
pt was given a warm blanket
--- NOTE | 2024-08-23 16:44 | PC.NURSE ---
rt aware of vbg
--- NOTE | 2024-08-23 16:45 | CT_ITS ---
PROCEDURE INFORMATION: Exam: CT Abdomen And Pelvis Without Contrast Exam date and time: 08/23/2024 5:01 PM Age: 73 years old Clinical indication: Abdominal pain; Additional info: Gen abd pain, nausea, poor appetite TECHNIQUE: Imaging protocol: Computed tomography of the abdomen and pelvis without contrast. Radiation optimization: All CT scans at this facility use at least one of these dose optimization techniques: automated exposure control; mA and/or kV adjustment per patient size (includes targeted exams where dose is matched to clinical indication); or iterative reconstruction. COMPARISON: CT ABDOMEN PELVIS WO CON 04/12/2024 10:20 AM FINDINGS: Lungs: Minimal streaky markings in the left lower lobe suggest parenchymal scarring or atelectasis. Pleural spaces: There are no pleural effusions. Heart: The visualized portions of the heart are unremarkable. There is a trace amount of pericardial fluid. Liver: There is mild enlargement of the liver. There is a diffuse decrease in hepatic parenchymal density, consistent with fatty infiltration. There are regions of focal parenchymal sparing adjacent to the gallbladder fossa. Gallbladder and biliary ducts: The gallbladder is normal. Pancreas: Noncontrast images of the pancreas are within range of normal. Spleen: The spleen demonstrates punctate calcifications, consistent with remote granulomatous organism exposure. Adrenal glands: The adrenal glands are normal. Kidneys and ureters: There is either renal lobulation there are mild areas of renal cortical scarring.Noncontrast images of the kidneys are otherwise within range of normal. Stomach and bowel: The stomach is normal. The duodenum is unremarkable. Lack of gastrointestinal contrast limits evaluation of bowel. Unopacified loops of small bowel within range of normal. There is mild retained colonic fecal material throughout the colon. Appendix: A normal appendix is identified. Intraperitoneal space: No evidence of intraperitoneal free air. No evidence of intraperitoneal free air. Vasculature: The aorta and iliac arteries demonstrate mild atherosclerotic calcification. Lymph nodes: Several small calcified lymph nodes are present in the left midabdomen. There is no evidence of pathologic adenopathy. Urinary bladder: The bladder is decompressed. Reproductive: There is a small nodular contour to the left anterolateral mid uterus best seen on series 3, image 94 likely reflecting a small fibroid, unchanged. The uterus is otherwise normal. There is a nodular focus with chunky calcifications measuring approximately 16 x 16 x 14 mm involving the right pelvis which may reflect a dermoid. The left ovary appears within range of normal. Bones/joints: There has been a total right hip arthroplasty in near anatomic alignment. Evaluation of pelvic structures is limited due to streak artifact from right hip arthroplasty. There are moderate degenerative changes of the left hip joint. There are mild degenerative changes of the symphyseal pubic joint. There are moderate degenerative changes of the sacroiliac joints. There is a minor convex left lumbar scoliosis.The thoracolumbar spine demonstrates moderate degenerative changes at multiple levels. There is lumbarization of the S1 segment. There is slight anterior spondylolisthesis of L5 on S1. There is slight retrolisthesis of L2 on L3 and L3 on L4. Soft tissues: No significant soft tissue edema. Other findings: Evaluation is limited by the lack of intravenous and gastrointestinal contrast. IMPRESSION: 1. Mild constipation. 2. Fatty hepatic infiltration. 3. Mild hepatomegaly. 4. Nodular focus with chunky calcifications measuring approximately 16 x 16 x 14 mm involving the right pelvis which may reflect a dermoid, stable from prior exam. 5. Suspect small fibroid involving the anterior left uterine mid body.
[2024-08-23 16:51] LABS: VBG Base Excess 2.6 mmol/L (-2.4-2.3); VBG HCO3 27.3 mmol/L (23-30); VBG PCO2 44.7 mmol/L (35-51); VBG PO2 28.3 mmol/L (28-40); VBG Total CO2 28.7 mmol/L (23-27)
[2024-08-23 16:51] LABS: NT Pro Brain Natriuretic Pep. 825 pg/mL (0-125)
[2024-08-23 16:52] LABS: Lactate Venous 2.1 mmol/L (0.4-2.0)
[2024-08-23] MEDS: 0.9 % SODIUM CHLORIDE 1000ML 1,000 ML 999 ML IV (16:57)
[2024-08-23 16:58] LABS: Microscopic, Urine URINE MICROSCOPIC (MICROSCOPIC)
[2024-08-23] MEDS: ONDANSETRON 4MG/2ML VIAL 4 MG IV (16:58)
[2024-08-23 16:59] LABS: Troponin I < 0.01 ng/ml (0.00-0.034)
[2024-08-23 17:00] LABS: Appearance,Urine CLEAR (Clear); Bilirubin,Urine Negative (Negative); Blood, Urine Negative (Negative); Color,Urine YELLOW (Yellow); Glucose,Urine (UA) Negative (Negative); Ketones,Urine Negative (Negative); Leukocyte Esterase,Urine 1+ (Negative); Nitrate,Urine Negative (Negative); Protein,Urine Negative (Negative); Specific Gravity, Urine <= 1.005 (1.005-1.030); Urobilinogen,Urine 0.2 EU/dl (0.2)
--- NOTE | 2024-08-23 17:07 | ED_ITS ---
Discharge Plan Disposition Patient Disposition: Admitted Condition: Good Clinical Impressions Clinical Impression: Acute UTI, ISIDRO (acute kidney injury), Constipation, Hyponatremia, Dermoid, Fibroid uterus Discharge ED Provider: Staci Bray General Adult HPI General Chief complaint: Abdominal Pain Stated complaint: Weakness Time Seen by Provider: 08/23/24 15:34 Mode of Arrival: Ambulatory Source of Information: Patient Limitations: No Limitations Description of Symptoms (Recalled from ER Triage Doc. by RN): upset stomach History of Present Illness HPI narrative: This patient is a 73-year-old female with a history of hypertension, depression, anxiety, type 2 diabetes presenting to the emergency department for evaluation with concern for orthostatic hypotension noted at PCPs office, belching, and poor appetite. Patient notes that she has had abdominal issues for quite some time now, stating that she has really poor appetite, has not been able to eat or drink, and has been feeling overall just very poorly and generally weak. She notes that initially it was just a food, then she started having significant abdominal cramping and pain anytime she tried to drink boost shakes, then progressed to water. She notes the pain is generalized and nonspecific. She is not sure when she last had a bowel movement but she is still passing gas. No fevers, chills, chest pain, shortness of breath, urinary symptoms, or other concerns noted. Related Data Home Medications ?Medication ?Instructions ?Recorded ?Confirmed famotidine 40 mg tablet (Pepcid) 40 mg PO BID PRN heartburn 06/24/24 08/23/24 Previous Rx's ?Medication ?Instructions ?Recorded alendronate 70 mg tablet (Fosamax) 70 mg PO WEEKLY #12 tabs 01/14/24 magnesium gluconate 27.5 mg 27.5 mg PO BID #60 tabs 05/03/24 magnesium (500 mg) tablet aspirin 81 mg tablet,delayed 81 mg PO DAILY #90 tabs 07/11/24 release (Adult Aspirin Regimen) chlorthalidone 25 mg tablet 25 mg PO DAILY #90 tabs 07/11/24 losartan 50 mg tablet (Cozaar) 100 mg (2 x 50 mg) PO DAILY #90 07/11/24 tabs metoprolol succinate 50 mg 100 mg (2 x 50 mg) PO DAILY #90 07/11/24 tablet,extended release 24 hr tabs (Toprol XL) amlodipine 5 mg tablet 5 mg PO DAILY #30 tabs 08/17/24 cetirizine 10 mg tablet (All Day 10 mg PO DAILY PRN allergy 08/17/24 Allergy (cetirizine)) symptoms #30 tabs fluticasone propionate 50 1 spray intranasal DAILY PRN 08/17/24 mcg/actuation nasal allergic symptoms #16 grams spray,suspension (Flonase Allergy Relief) Allergies Allergy/AdvReac Type Severity Reaction Status Date / Time Sulfa (Sulfonamide Allergy Intermediate Hives Verified 08/23/24 14:51 Antibiotics) lisinopril AdvReac Intermediate Cough Verified 08/23/24 14:51 PFSH PFS Disclaimer: The information contained in this section may have been updated after the patient was seen, as this information can be updated by other users. Medical History Diabetes mellitus, type 2 Diabetes mellitus, type 2 Depression Anxiety Essential hypertension Surgical History History of total right hip arthroplasty History of 2 sections Family History Other Unknown family medical history Social History Smoking Status: Never smoker alcohol intake: never substance use type: denies use current occupational status: other Travel in the last 8 weeks: None household members: family housing: house Other Medical History Have you received the Flu Vaccine for this season: Yes Have you received the Pneumonia Vaccine: Yes ROS Obtained: Yes All systems reviewed & no additional complaints except as documented Physical Exam General General appearance: alert and in no apparent distress Head Head exam: atraumatic and normocephalic Eye Eye exam: Present normal appearance, PERRL and EOMI ENT ENT exam: Present mucous membranes dry and normal external ear exam Neck Neck exam: Present normal inspection, full ROM and trachea midline; Absent tenderness Chest Chest inspection: Present normal inspection and symmetric chest wall rise; Absent tenderness Respiratory Respiratory exam: Present normal lung sounds bilaterally; Absent respiratory distress, wheezes, stridor or accessory muscle use Cardiovascular Cardiovascular exam: Present regular rate and normal rhythm Abdominal Exam Abdominal exam: Present soft; Absent distention, tenderness or guarding Extremities Exam Extremities exam: Present normal inspection, full ROM and normal capillary refill; Absent tenderness or edema Back Exam Back exam: Present normal inspection and full ROM; Absent tenderness Neurological Exam Neurological exam: Present alert, oriented X3, CN II-XII intact and normal gait; Absent motor sensory deficit Psychiatric Psychiatric exam: Present normal affect and normal mood Skin Skin exam: Present warm and dry Medical Decision Making Medical Records Medical records reviewed: Yes I reviewed the patient's medical records. Screening: Per USPSTF and CDC recommendations, given the prevalence of disease in our region, it is our hospital?s policy to screen for HIV and viral Hepatitis for all patients aged 18 and over and those with ongoing risk factors. Lakhwinder Inquiry Pt receiving controlled substance: No Vital Signs: 08/23/24 15:38 08/23/24 16:03 08/23/24 16:33 Temperature 98.3 F Temperature Source Oral Pulse Rate 64 63 Pulse Rate [Orthostatic Lying Left Radial] Pulse Rate [Orthostatic Sitting Left Radial] Pulse Rate [Orthostatic Standing Left Radial] Pulse Rate [Right Radial] 70 Respiratory Rate 18 Blood Pressure 92/75 L 94/66 L Blood Pressure [Orthostatic Lying Left Arm] Blood Pressure [Orthostatic Sitting Left Arm] Blood Pressure [Orthostatic Standing Left Arm] Blood Pressure [Right Radial Artery] 110/87 Blood Pressure Mean Blood Pressure Mean [Right Radial Artery] 94 02 Sat by Pulse Oximetry 99 94 L 95 Oxygen Delivery Method Room Air Room Air 08/23/24 17:19 08/23/24 17:21 08/23/24 17:22 Temperature Temperature Source Pulse Rate 66 62 63 Pulse Rate [Orthostatic Lying Left Radial] Pulse Rate [Orthostatic Sitting Left Radial] Pulse Rate [Orthostatic Standing Left Radial] Pulse Rate [Right Radial] Respiratory Rate Blood Pressure 128/60 124/53 L 116/59 L Blood Pressure [Orthostatic Lying Left Arm] Blood Pressure [Orthostatic Sitting Left Arm] Blood Pressure [Orthostatic Standing Left Arm] Blood Pressure [Right Radial Artery] Blood Pressure Mean 97 92 93 Blood Pressure Mean [Right Radial Artery] 02 Sat by Pulse Oximetry 95 96 96 Oxygen Delivery Method Room Air Room Air Room Air 08/23/24 17:23 08/23/24 17:25 08/23/24 17:30 Temperature Temperature Source Pulse Rate 66 64 Pulse Rate [Orthostatic Lying Left Radial] 61 Pulse Rate [Orthostatic Sitting Left Radial] 63 Pulse Rate [Orthostatic Standing Left Radial] 66 Pulse Rate [Right Radial] Respiratory Rate Blood Pressure 98/50 L 125/59 L Blood Pressure [Orthostatic Lying Left Arm] 128/60 Blood Pressure [Orthostatic Sitting Left Arm] 116/59 L Blood Pressure [Orthostatic Standing Left Arm] 98/50 L Blood Pressure [Right Radial Artery] Blood Pressure Mean 66 81 Blood Pressure Mean [Right Radial Artery] 02 Sat by Pulse Oximetry 95 95 Oxygen Delivery Method Room Air Room Air 08/23/24 18:00 08/23/24 18:31 Temperature Temperature Source Pulse Rate 56 L 67 Pulse Rate [Orthostatic Lying Left Radial] Pulse Rate [Orthostatic Sitting Left Radial] Pulse Rate [Orthostatic Standing Left Radial] Pulse Rate [Right Radial] Respiratory Rate Blood Pressure 118/91 H 128/56 L Blood Pressure [Orthostatic Lying Left Arm] Blood Pressure [Orthostatic Sitting Left Arm] Blood Pressure [Orthostatic Standing Left Arm] Blood Pressure [Right Radial Artery] Blood Pressure Mean 99 80 Blood Pressure Mean [Right Radial Artery] 02 Sat by Pulse Oximetry 96 96 Oxygen Delivery Method Room Air Room Air Lab Data Lab results reviewed: Yes I reviewed the patient's lab results. Lab Results 08/23/24 15:47: WBC 11.6 H, RBC 4.22, Hgb 12.6, Hct 36.6 L, MCV 86.6, MCH 29.8, MCHC 34.4, RDW 13.6, Plt Count 372, MPV 7.9, Neut % (Auto) 78.9, Lymph % (Auto) 16.4, [place] % (Auto) 3.7, Eos % (Auto) 0.6, Baso % (Auto) 0.4, Neut # (Auto) 9.2 H, Lymph # (Auto) 1.9, [place] # (Auto) 0.4, Eos # (Auto) 0.1, Baso # (Auto) 0.1, S odium 126 L, Potassium 3.6, Chloride 89 L, Carbon Dioxide 28, Anion Gap 12.6, B UN 23 H, Creatinine 2.60 H, Estimated Creat Clear 26, Estimated GFR 18 L*, Est GFR ( Amer) 22 L, Glucose 138 H, Calcium 9.1, Phosphorus 3.0, Magnesium 2.2, Total Bilirubin 0.8, AST 40 H, ALT 35, Alkaline Phosphatase 62, Troponin I < 0.01, NT-Pro-B Natriuret Pep 825 H, Total Protein 7.8, Albumin 4.1, Globulin 3.7 H, Albumin/Globulin Ratio 1.1, Lipase 130 08/23/24 16:21: VBG pH 7.40, VBG pCO2 44.7, VBG pO2 28.3, VBG HCO3 27.3, VBG Total CO2 28.7 H, VBG O2 Saturation 55.0, VBG Base Excess 2.6 H, VBG Lactic Acid 2.1 H 08/23/24 16:50: Urine Color Yellow, Urine Appearance Clear, Urine pH 6.0, Ur Specific [place] <= 1.005, Urine Protein Negative, Urine Glucose (UA) Negative, Urine Ketones Negative, Urine Blood Negative, Urine Nitrate Negative, Urine Bilirubin Negative, Urine Urobilinogen 0.2, Ur Leukocyte Esterase 1+ A, Urine RBC 3-5, Urine WBC 50-100, Ur Squamous Epith Cells 10-20, Urine Bacteria 4+ 08/23/24 15:47 08/23/24 15:47 Orders (Tests/Meds): ED MEDICATIONS Generic Name Dose Route Start Last Admin Trade Name Freq PRN Reason Stop Dose Admin Ceftriaxone Sodium 2 gm/ 100 mls @ 200 mls/hr 08/23/24 19:11 Sodium Chloride IV 08/23/24 19:40 ONCE ONE Sodium Chloride 8 ml 08/23/24 19:11 Sodium Chloride 0.9% 10ml Vial IV 09/22/24 19:10 NEEDED PRN dilute pepcid Discontinued Medications Generic Name Dose Route Start Last Admin Trade Name Freq PRN Reason Stop Dose Admin Famotidine 20 mg 08/23/24 19:11 Famotidine 20mg/2ml Vial IV 08/23/24 19:12 ONCE ONE Sodium Chloride 1,000 mls @ 999 mls/hr 08/23/24 16:43 08/23/24 16:57 Sod Chlor 0.9% 1000ml Bag IV 08/23/24 17:43 999 mls/hr .Q1H1M ONE Administration Ondansetron HCl 4 mg 08/23/24 16:43 08/23/24 16:58 Ondansetron 4mg/2ml Vial IV 08/23/24 16:44 4 mg ONCE ONE Administration ORDERS Category Date Time Status CT abdomen pelvis wo con Stat Cat Scan 08/23/24 16:45 Completed CXR 2 view (NOT portable) [XR chest 2V] Stat Exams 08/23/24 16:34 Completed BNP [NT Pro Brain Natriuretic Pep.] Stat Lab 08/23/24 15:47 Completed Complete Blood Count Auto Diff Stat Lab 08/23/24 15:47 Completed Comprehensive Metabolic Panel Stat Lab 08/23/24 15:47 Completed Lipase Stat Lab 08/23/24 15:47 Completed Magnesium Stat Lab 08/23/24 15:47 Completed Phosphorous Stat Lab 08/23/24 15:47 Completed Trop I [Troponin I] Stat Lab 08/23/24 15:47 Completed Troponin I Q3H Lab 08/23/24 19:30 Ordered Troponin I Q3H Lab 08/23/24 22:30 Ordered UA [Urinalysis and Microscopic] Stat Lab 08/23/24 16:50 Completed Blood Culture Stat Micro 08/23/24 19:11 Ordered Urine Culture Stat Micro 08/23/24 16:50 Received VBG [Venous Blood Gas] Stat RT 08/23/24 16:21 Completed ECG Data Tracing #1: I reviewed this ECG and interpreted as documented below: Normal sinus rhythm with a ventricular rate of [address] changes concerning for ischemia. Normal axis and intervals. ECG initial impression date: 08/23/24 ECG initial impression time: 16:33 Medical Decision Narrative: In summary, this patient is a 73-year-old female presenting to the Emergency Department for evaluation of abdominal pain with eating, inability to tolerate oral intake, general weakness, and low blood pressure orthostatic hypotension in clinic. Differential diagnoses considered include but are not limited to peptic ulcer disease, gastritis, cholecystitis, symptomatic cholelithiasis, malignancy, dehydration, ISIDRO. Ruling out the most morbid conditions drove assessment. It should be noted patient's history includes hypertension, diabetes, GERD which may or may not be at goal therapy. This complicates all aspects of care by increasing patient's risk for morbidity. I reviewed patient's past medical records and noted previous admission back in March for ISIDRO in the setting of similar presentation. On exam, the patient is lying in bed in no acute distress. She has borderline low blood pressure while lying with systolics in the 90s. This did improve with fluid resuscitation 1 L bolus to systolic in the 120s, however with any attempt to get the patient up, systolic dropped to the 90s and she becomes acutely symptomatic. Workup included broad lab evaluation to evaluate for infectious, metabolic, cardiac causes of symptoms as well as CT abdomen and pelvis without contrast and chest x-ray. EKG was obtained and is reassuring. Patient was given IV Zofran for symptomatic improvement of nausea. I independently interpreted CT scan prior to the radiologist read and noted moderate stool burden but no obvious obstructive process. Please see their read for final interpretation. Incidental findings noted including stable dermoid, uterine fibroid, fatty liver. Patient notified of these. Labs were obtained that demonstrated ISIDRO with creatinine of 2.6 from a baseline of 1.1. She also has acute hyponatremia. AST very mildly elevated. She does have mild leukocytosis and urine is concerning for infection. Given this, urine culture and blood culture sent. On reassessment, patient had some improvement after administration of IV fluids and Zofran. She is also given IV Pepcid for gastric protection. I started her on IV Rocephin for UTI. Ultimately given lab derangements, ISIDRO, hyponatremia, and her difficulty tolerating oral intake, I feel she would benefit from admission for continued monitoring and resuscitation. I had an interactive discussion with the hospitalist who admitted the patient. Critical Care Critical Care Time Critical Care Time: No
[2024-08-23 17:42] LABS: Bacteria,Urine 4+ /lpf; WBC,Urine 50-100 #/hpf (0-3)
[2024-08-23] MEDS: FAMOTIDINE 20MG/2ML VIAL 20 MG IV (19:31)
[2024-08-23] MEDS: CEFTRIAXONE SODIUM 2 GM in 0.9 % SODIUM CHLORIDE 100 ML IV (19:31)
--- NOTE | 2024-08-23 19:35 | PC.NURSE ---
Report called to Mayda ALEMAN pt awaiting transport to inpatient unit Skin pink warm and dry Resp full and easy. IV in R AC infusing without difficulty. Fluid bolus complete iV antibiotics infusing Speech clear and appropriate
--- NOTE | 2024-08-23 20:06 | PC.NURSE ---
Pt transferred to floor via wheelchair
[2024-08-23 20:08] LABS: Troponin I < 0.01 ng/ml (0.00-0.034)
[2024-08-23 20:51] LABS: Reflex Lactic Add Lactic Reflex
[2024-08-23 21:28] LABS: Lactic Acid Follow Up (RFLX 1) 0.8 mmol/L (0.7-2.1)
[2024-08-23 23:07] LABS: Troponin I 0.03 ng/ml (0.00-0.034)
--- NOTE | 2024-08-23 23:30 | P.HP_ITS ---
<Statement entered by Bob June MD - 08/28/24 14:25> I personally evaluated patient and agree with plan of care as outlined by PRODUCT REPRESENTATIVE below. History of Present Illness *Admission Date: 08/23/24 *Reason for visit:: Weakness with orthostatic hypotension belching abdominal cramping *History of present illness: This 73-year-old female, went to her physician today noting to have orthostatic hypotension. Patient came to the emergency room where this was found to still be constant.. Lab work was done which showed that the patient was extremely hyponatremic with very poor kidney function. Chest x-ray were done abdominal CT done finding no acute problems. Patient's main problems that she really has also stopped eating and has gone just to water lately.. While in the ER she was given 1 L of normal saline and presently while lying on the stretcher is asy mptomatic. After conferring with the ER physician do agree that she does need to be admitted. For the orthostatic hypotension also for this kidney function and very significant decreased in sodium. Plan to consult gastroenterology to evaluate why the patient is no longer having an appetite and unable to tolerate regular food. Will also hold her diuretic which is known to lower sodium., Order will be placed and also limit the amount of plain water the patient drinks while on the floor. Patient was noted to have a low limited UTI. She has received 2 g of Rocephin in the ER, patient had no urinary tract symptoms reported., Will discuss with daytime provider whether or not further antibiotics are needed. [facility] Disclaimer: The information contained in this section may have been updated after the patient was seen, as this information can be updated by other users. Medical History Diabetes mellitus, type 2 Diabetes mellitus, type 2 Depression Anxiety Essential hypertension Surgical History History of total right hip arthroplasty History of 2 sections Family History Other Unknown family medical history Social History (Updated 08/23/24 @ 20:41 by Miriam Santizo RN) Smoking Status: Never smoker alcohol intake: never substance use type: denies use current occupational status: other Travel in the last 8 weeks: None household members: family housing: house Other Medical History Have you received the Flu Vaccine for this season: Yes Have you received the Pneumonia Vaccine: Yes Review of Systems Review of Systems Review of systems:: pertinent systems reviewed and negative unless documented below Constitutional Constitutional: Reports as per HPI and Reports poor appetite Eyes Eyes: Reports as per HPI ENT Ears, Nose, Mouth, and Throat: Reports as per HPI *Cardiovascular Cardiovascular: Reports as per HPI Comments: Denies chest pain *Respiratory Respiratory: Reports as per HPI Comments: Denies any shortness of breath *Gastrointestinal Gastrointestinal: Reports as per HPI, Reports abdominal pain, Reports bloating, Reports constipation and Reports dyspepsia *Genitourinary Genitourinary: Reports as per HPI *Musculoskeletal Musculoskeletal: Reports as per HPI and Reports muscle weakness Integumentary/Breasts Skin/Breast: Reports as per HPI *Neurologic Neurologic: Reports as per HPI Psychiatric Psychiatric: Reports as per HPI Endocrine Endocrine: Reports as per HPI Hematologic/Lymphatic Hematologic/Lymphatic: Reports as per HPI Allergic/Immunologic Allergic/Immunologic: Reports as per HPI Meds Home Medications and Allergies Home Medications ?Medication ?Instructions ?Recorded ?Confirmed ?Type alendronate 70 mg tablet (Fosamax) 70 mg PO WEEKLY #12 tabs 01/14/24 08/23/24 Rx famotidine 40 mg tablet (Pepcid) 40 mg PO BID PRN heartburn 06/24/24 08/23/24 History aspirin 81 mg tablet,delayed 81 mg PO DAILY #90 tabs 07/11/24 08/23/24 Rx release (Adult Aspirin Regimen) chlorthalidone 25 mg tablet 25 mg PO DAILY #90 tabs 07/11/24 08/23/24 Rx losartan 50 mg tablet (Cozaar) 100 mg (2 x 50 mg) PO DAILY #90 07/11/24 08/23/24 Rx tabs metoprolol succinate 50 mg 100 mg (2 x 50 mg) PO DAILY #90 07/11/24 08/23/24 Rx tablet,extended release 24 hr tabs (Toprol XL) amlodipine 5 mg tablet 5 mg PO DAILY #30 tabs 08/17/24 08/23/24 Rx cetirizine 10 mg tablet (All Day 10 mg PO DAILY PRN allergy 08/17/24 08/23/24 Rx Allergy (cetirizine)) symptoms #30 tabs fluticasone propionate 50 1 spray intranasal DAILY PRN 08/17/24 08/23/24 Rx mcg/actuation nasal allergic symptoms #16 grams spray,suspension (Flonase Allergy Relief) magnesium oxide 400 mg PO DAILY 08/23/24 08/23/24 History New Prescriptions to Start Prescriptions: Allergies Allergy/AdvReac Type Severity Reaction Status Date / Time Sulfa (Sulfonamide Allergy Intermediate Hives Verified 08/23/24 14:51 Antibiotics) lisinopril AdvReac Intermediate Cough Verified 08/23/24 14:51 Exam Data for Last 24 hours Vital signs and Labs for Last 24 Hours: Temp Pulse Resp BP Pulse Ox O2 Del Method 98 F 66 18 121/64 97 Room Air 08/23/24 20:09 08/23/24 20:09 08/23/24 20:08/23/24 20:08/23/24 20:09 08/23/24 23:00 Laboratory Results - last 24 hr 08/23/24 15:47: WBC 11.6 H, RBC 4.22, Hgb 12.6, Hct 36.6 L, MCV 86.6, MCH 29.8, MCHC 34.4, RDW 13.6, Plt Count 372, MPV 7.9, Neut % (Auto) 78.9, Lymph % (Auto) 16.4, [place] % (Auto) 3.7, Eos % (Auto) 0.6, Baso % (Auto) 0.4, Neut # (Auto) 9.2 H, Lymph # (Auto) 1.9, [place] # (Auto) 0.4, Eos # (Auto) 0.1, Baso # (Auto) 0.1, Sodium 126 L, Potassium 3.6, Chloride 89 L, Carbon Dioxide 28, Anion Gap 12.6, BUN 23 H, Creatinine 2.60 H, Estimated Creat Clear 26, Estimated GFR 18 L*, Est GFR ( Amer) 22 L, Glucose 138 H, Calcium 9.1, Phosphorus 3.0, Magnesium 2.2, Total Bilirubin 0.8, AST 40 H, ALT 35, Alkaline Phosphatase 62, Troponin I < 0.01, NT-Pro-B Natriuret Pep 825 H, Total Protein 7.8, Albumin 4.1, Globulin 3.7 H, Albumin/Globulin Ratio 1.1, Lipase 130 08/23/24 16:21: VBG pH 7.40, VBG pCO2 44.7, VBG pO2 28.3, VBG HCO3 27.3, VBG Total CO2 28.7 H, VBG O2 Saturation 55.0, VBG Base Excess 2.6 H, VBG Lactic Acid 2.1 H 08/23/24 16:50: Urine Color Yellow, Urine Appearance Clear, Urine pH 6.0, Ur Specific [place] <= 1.005, Urine Protein Negative, Urine Glucose (UA) Negative, Urine Ketones Negative, Urine Blood Negative, Urine Nitrate Negative, Urine Bilirubin Negative, Urine Urobilinogen 0.2, Ur Leukocyte Esterase 1+ A, Urine RBC 3-5, Urine WBC 50-100, Ur Squamous Epith Cells 10-20, Urine Bacteria 4+ 08/23/24 19:30: Troponin I < 0.01 08/23/24 20:55: Lactate 0.8 I & O for Last 24 hours: Intake & Output 08/21/24 08/22/24 08/23/24 08/24/24 05:59 05:59 05:59 05:59 Output Total 0 / 0 Balance 0 / 0 Weight 191 lb Radiology Reports for the Last 24 Hours: Chest x-ray no acute fine, CT of the abdomen no acute findings Constitutional Constitutional: mild distress Comments: Patient in no distress while lying on the stretcher. Did not stand her, but noted that she was truly orthostatic by the information I received from the nurses last time getting her orthostatic vital signs. Noting that with the heart rate remaining basically the same since she is on beta-blockers. But definite decrease in blood pressure *Routine HEENT Exam Head: Present normocephalic and atraumatic Eye: Present EOMI and PERRL ENT: Present mucous membranes moist *Routine Neck Exam Neck: Present supple and full ROM Routine Chest/Breast/Axilla Exam Comments: During the exam no chest wall tenderness found no lymphadenopathy found *Routine Respiratory Exam Respiratory: Present CTA bilaterally, normal respiratory effort, able to speak in complete sentences and symmetric chest movement Comments: Respiratory exam perfectly normal *Routine Cardiovascular Exam Cardiovascular: Present RRR, Normal S1, Normal S2 and bradycardia *Routine Abdominal Exam Abdominal: Present soft, normoactive bowel sounds and obese *Routine Rectal Exam Rectal:: deferred *Routine Genitalia Exam Genitalia:: deferred *Routine Extremities Exam Extremities: Present full ROM, pulses intact and normal capillary refill Comments: No sign of edema in any of her extremities. I did not stand the patient but was noted from the nurses that she is able to stand and walk just feels very lightheaded and weak Routine Back/Spine/Pelvis Exam Back/Spine: Present full ROM *Routine Skin Exam Skin: Present intact, dry and warm Comments: Turgor slightly poor *Routine Neurological Exam Neurological: Present alert, oriented X3, CN II-XII intact, moving all extremities, normal tone, vision grossly intact and hearing grossly intact Routine Psychiatric Exam Psychiatric: Present normal affect, normal thought process, cooperative, good insight and good judgment H&P: Result Impressions 1. Orthostatic hypotension, unsure of cause but patient has stopped eating lately because she has no appetite and also a lot of bloating once she does eat. Has started limiting food and is basically only been drinking water 2. Hyponatremia., Also noted that the patient is drinking just water not eating regular food anymore just does not have the stomach for it., He is also noted is having very poor kidney function., She is on a diuretic that is known to decrease sodium so this will be held at this time. 3. Insufficiency of renal function., I have no labs to determine if this is acute or slow chronic decline. But her kidney function is quite diminished, , CT scan was done that showed no abnormalities noted in the kidneys themselves. She is on several medications for hypertension that are calcium channel blockers and beta-dinorah, will limit all medication that would be affecting kidney function at this time, try to get the patient to begin to eat regular food to see if increase in sodium will make a difference in knee function. She does not appear to be fluid overloaded at this time. Imaging and Cardiology Chest x-ray: Status: image reviewed by me Additional comments: No acute findings Assessment and Plan *Assessment and plan (1) Orthostasis: Status: Acute Category: Medical Code(s): I95.1 - Orthostatic hypotension (2) Hyponatremia: Status: Acute Category: Medical Code(s): E87.1 - Hypo-osmolality and hyponatremia (3) ISIDRO (acute kidney injury): Status: Acute Category: Medical Code(s): N17.9 - Acute kidney failure, unspecified (4) Chronic kidney disease, stage 3a: Status: Acute Category: Medical Code(s): N18.31 - Chronic kidney disease, stage 3a (5) Acute UTI: Status: Acute Category: Medical Code(s): N39.0 - Urinary tract infection, site not specified (6) Constipation: Status: Acute Qualifiers: Constipation type: unspecified constipation type Qualified Code(s): K59.00 - Constipation, unspecified Category: Medical Code(s): K59.00 - Constipation, unspecified (7) Abdominal discomfort: Status: Acute Category: Medical Code(s): R10.9 - Unspecified abdominal pain (8) General weakness: Status: Acute Category: Medical Code(s): R53.1 - Weakness Plan 1. For orthostasis: Patient will be admitted to the floor. She has been given 1 L of normal saline. Orthostatic blood pressures will be repeated. She will be limited on the amount of free water she is able to drink, consult to gastroenterology for finding reason why patient is no longer able to tolerate regular food 2. Chronic kidney injury with probable acute kidney injury that may be causing hyponatremia. Will stop present diuretic as it does also cause sodium to be excreted, also will stop Fosamax and the ARB blood pressure medication due to the risk because of the lower kidney function.
[2024-08-24 03:35] VITALS: BP 107/54; PULSE 70; RESP 16; TEMP 37.2; O2SAT 95; BMI 35.1
--- NOTE | 2024-08-24 04:25 | PC.NURSE ---
Ms Sofie Munson was newly admitted on behalf of the following documented diagnoses: acute kidney injury and a UTI (low-limited per MD report). She has a medical history of osteoporosis, CKD, diabetes type II, GERD, etc. (see list). Patient reports having symptoms of dehydration ( dizziness, thirstiness ), becoming easily winded with exertion, abdominal discomfort, a history of frequent falls (patient stated back in March ), and a poor appetite for the past few weeks. She also reports wobbliness with ambulation and has gone a couple weeks without having a bowel movement. Upon auscultation of the abdomen, patient's bowel sounds in the left quadrants were practically absent, while bowel sounds in the right quadrants were hypoactive. Abdomen was non-tender and soft upon palpation. Lung sounds were clear and S1/S2 heart sounds could be heard. She is alert and oriented x4. Vital signs have been stable with soft blood pressures this shift. Blood cultures were obtained this shift. Patient has been NPO since her arrival to the floor, but was allowed per communication order to have limitations of plain water (< 8 oz every 8 hours) but an encouragement for Gatorade and other sodium-containing beverages given her hyponatremia and poor kidney function findings (per MD report, per lab values). Nephrotoxic home medications were not ordered per [place] NIETO. Admission assessments and home medication reconciliation were completed this shift. Patient has not been given any medications per MAR this shift. She has not had any further complaints this shift. She was observed to have eyes closed, respirations even and unlabored on room air, and no apparent distress throughout the night. At this time, the patient continues to rest in bed. No acute changes noted. Call light within reach. Home medications are in the patient's room, needing labels by pharmacy.
[2024-08-24 06:04] LABS: Lactic Acid 0.6 mmol/L (0.7-2.1)
[2024-08-24 06:18] LABS: Basophils % 0.4 % (0.1-2.0); Eosinophils # 0.1 K/mm3 (0.0-0.4); Eosinophils % 1.3 % (0.1-12.0); Hematocrit 32.5 % (37.0-47.0); Hemoglobin 11.4 g/dL (12.2-16.2); Lymphocytes # 1.6 K/mm3 (0.7-4.5); Lymphocytes % 18.2 % (10-50); Mean Corpuscular HGB Conc 34.9 g/dL (31.8-35.4); Mean Corpuscular Hemoglobin 30.4 pg (27.0-31.2); Mean Corpuscular Volume 87.1 fl (81-99); Mean Platelet Volume 7.5 fl (7.4-10.4); Monocytes # 0.5 K/mm3 (0.1-1.0); Neutrophils # 6.7 K/mm3 (1.8-7.8); Platelet Count 297 K/mm3 (142-424); Red Blood Count 3.74 M/mm3 (4.20-5.40); Red Cell Distribution Width 13.9 % (11.5-17.5)
[2024-08-24 06:30] LABS: Albumin Level 3.4 g/dl (3.5-5.0); Chloride 95 mmol/L (98-107); Potassium 3.5 mmoL/L (3.5-5.1); Sodium 129 mmol/L (136-145)
[2024-08-24 06:32] LABS: Alanine Aminotransferase 25 U/L (12-78); Aspartate Amino Transferase 35 U/L (14-36); Blood Urea Nitrogen 25 mg/dl (7-17); Creatinine Clearance Estimated 27 mL/min (50-200); Estimated Glomerular Filt Rate 18 ml/min (>60); GFR (African American) 22 ML/MIN (>60)
[2024-08-24 06:33] LABS: Albumin/Globulin Ratio 1.1 (1.1-1.8); Alkaline Phosphatase 52 U/L (38-126); Anion Gap 10.5 mEq/L (5-15); Bilirubin,Total 0.4 mg/dl (0.2-1.3); Calcium 8.3 mg/dl (8.4-10.2); Carbon Dioxide 27 mmol/L (22.0-30.0); Globulin 3.2 g/dL (1.3-3.2); Glucose 113 mg/dl (74-100); Magnesium 2.3 mg/dl (1.6-2.3); Total Protein,Serum 6.6 g/dl (6.3-8.2)
[2024-08-24 07:44] VITALS: BP 94/54; PULSE 69; RESP 16; TEMP 36.6; O2SAT 99
[2024-08-24 07:47] VITALS: BP 77/44; BP 95/54; BP 99/55; PULSE 69; PULSE 85; PULSE 95
--- NOTE | 2024-08-24 07:49 | HMH.PHAINT1 ---
Pharmacy Intervention Comments: HOME MEDICATIONS VERIFIED VIA OUTPATIENT PHARMACY
[2024-08-24] MEDS: 0.9 % SODIUM CHLORIDE 1000ML 1,000 ML 999 ML IV (07:54)
[2024-08-24] MEDS: ENOXAPARIN 40MG/0.4ML SYRINGE 40 MG SUBCUT (08:52)
[2024-08-24] MEDS: MAGNESIUM OXIDE 400MG TABLET 400 MG PO (08:53)
[2024-08-24] MEDS: FAMOTIDINE 20MG/2ML VIAL 20 MG IV (08:53)
[2024-08-24] MEDS: SODIUM CHLORIDE 0.9% 10ML VIAL 8 ML IV (08:53)
[2024-08-24] MEDS: ASPIRIN EC 81MG TABLET 81 MG PO (08:53)
--- NOTE | 2024-08-24 10:41 | EXP.CARD.CON ---
History of Present Illness History of Present Illness Consult date: 08/24/24 Requesting physician: Bob June Chief complaint: weakness, orthostatic hypotension Additional Medical History:: 1. History of hypertension 2. Decreased appetite with weight loss, ISIDRO, hyponatremia and orthostatic hypotension, 08/23/2024 History of present illness: This 73-year-old female, went to her physician today noting to have orthostatic hypotension. Patient came to the emergency room where this was found to still be constant.. Lab work was done which showed that the patient was extremely hyponatremic with very poor kidney function. Chest x-ray were done abdominal CT done finding no acute problems. Patient's main problems that she really has also stopped eating and has gone just to water lately.. While in the ER she was given 1 L of normal saline and presently while lying on the stretcher is asymptomatic. After conferring with the ER physician do agree that she does need to be admitted. For the orthostatic hypotension also for this kidney function and very significant decreased in sodium. Plan to consult gastroenterology to evaluate why the patient is no longer having an appetite and unable to tolerate regular food. Will also hold her diuretic which is known to lower sodium., Order will be placed and also limit the amount of plain water the patient drinks while on the floor. Patient was noted to have a low limited UTI. She has received 2 g of Rocephin in the ER, patient had no urinary tract symptoms reported., Will discuss with daytime provider whether or not further antibiotics are needed. The above per Bob Easley APRN for the hospitalist service Cardiology consulted due to patient being on beta-dinorah for history of hypertension. Events as noted above confirmed with the patient. Patient's orthostatic vital signs this morning again show evidence of orthostatic hypotension with a 20 point drop systolically from 90s to 70s with symptoms. Troponins normal. EKG is sinus rhythm at 65 bpm [facility] Disclaimer: The information contained in this section may have been updated after the patient was seen, as this information can be updated by other users. Medical History Diabetes mellitus, type 2 Diabetes mellitus, type 2 Depression Anxiety Essential hypertension Surgical History History of total right hip arthroplasty History of 2 sections Family History Other Unknown family medical history Social History (Updated 08/23/24 @ 20:41 by Miriam Santizo RN) Smoking Status: Never smoker alcohol intake: never substance use type: denies use current occupational status: other Travel in the last 8 weeks: None household members: family housing: house Review of Systems Review of Systems Review of systems:: pertinent systems reviewed and negative unless documented below *Cardiovascular Cardiovascular: Reports chest pain and Reports palpitations *Neurologic Neurologic: Reports as per HPI Endocrine Endocrine: Reports palpitations Exam Data for Last 24 hours Vital signs and Labs for Last 24 Hours: Temp Pulse Resp BP Pulse Ox O2 Del Method 98 F 69 16 95/54 L 99 Room Air 08/24/24 07:44 08/24/24 07:47 08/24/24 07:44 08/24/24 07:47 08/24/24 07:44 08/24/24 08:00 Laboratory Results - last 24 hr 08/23/24 15:47: WBC 11.6 H, RBC 4.22, Hgb 12.6, Hct 36.6 L, MCV 86.6, MCH 29.8, MCHC 34.4, RDW 13.6, Plt Count 372, MPV 7.9, Neut % (Auto) 78.9, Lymph % (Auto) 16.4, [place] % (Auto) 3.7, Eos % (Auto) 0.6, Baso % (Auto) 0.4, Neut # (Auto) 9.2 H, Lymph # (Auto) 1.9, [place] # (Auto) 0.4, Eos # (Auto) 0.1, Baso # (Auto) 0.1, Sodium 126 L, Potassium 3.6, Chloride 89 L, Carbon Dioxide 28, Anion Gap 12.6, BUN 23 H, Creatinine 2.60 H, Estimated Creat Clear 26, Estimated GFR 18 L*, Est GFR ( Amer) 22 L, Glucose 138 H, Calcium 9.1, Phosphorus 3.0, Magnesium 2.2, Total Bilirubin 0.8, AST 40 H, ALT 35, Alkaline Phosphatase 62, Troponin I < 0.01, NT-Pro-B Natriuret Pep 825 H, Total Protein 7.8, Albumin 4.1, Globulin 3.7 H, Albumin/Globulin Ratio 1.1, Lipase 130 08/23/24 16:21: VBG pH 7.40, VBG pCO2 44.7, VBG pO2 28.3, VBG HCO3 27.3, VBG Total CO2 28.7 H, VBG O2 Saturation 55.0, VBG Base Excess 2.6 H, VBG Lactic Acid 2.1 H 08/23/24 16:50: Urine Color Yellow, Urine Appearance Clear, Urine pH 6.0, Ur Specific [place] <= 1.005, Urine Protein Negative, Urine Glucose (UA) Negative, Urine Ketones Negative, Urine Blood Negative, Urine Nitrate Negative, Urine Bilirubin Negative, Urine Urobilinogen 0.2, Ur Leukocyte Esterase 1+ A, Urine RBC 3-5, Urine WBC 50-100, Ur Squamous Epith Cells 10-20, Urine Bacteria 4+ 08/23/24 19:30: Troponin I < 0.01 08/23/24 20:55: Lactate 0.8 08/23/24 22:37: Troponin I 0.03 08/24/24 05:34: WBC 9.0, RBC 3.74 L, Hgb 11.4 L, Hct 32.5 L, MCV 87.1, MCH 30.4, MCHC 34.9, RDW 13.9, Plt Count 297, MPV 7.5, Neut % (Auto) 75.0, Lymph % (Auto) 18.2, [place] % (Auto) 5.0, Eos % (Auto) 1.3, Baso % (Auto) 0.4, Neut # (Auto) 6.7, Lymph # (Auto) 1.6, [place] # (Auto) 0.5, Eos # (Auto) 0.1, Baso # (Auto) 0.0, Sodium 129 L, Potassium 3.5, Chloride 95 L, Carbon Dioxide 27, Anion Gap 10.5, BUN 25 H, Creatinine 2.60 H, Estimated Creat Clear 27, Estimated GFR 18 L*, Est GFR ( Amer) 22 L, Glucose 113 H, Lactate 0.6 L, Calcium 8.3 L, Magnesium 2.3, Total Bilirubin 0.4, AST 35, ALT 25 D, Alkaline Phosphatase 52, Total Protein 6.6, Albumin 3.4 L D, Globulin 3.2, Albumin/Globulin Ratio 1.1 I & O for Last 24 hours: Intake & Output 08/21/24 08/22/24 08/23/24 08/24/24 11:59 11:59 11:59 11:59 Intake Total 0 / 0 Output Total 0 / 0 Balance 0 / 0 Weight 191 lb Microbiology Reports for the Last 24 Hours: Microbiology 08/23/24 16:50 Urine,Clean Catch Urine Culture - Preliminary Gram Negative Rods Constitutional Constitutional: no acute distress *Routine Respiratory Exam Respiratory: Present CTA bilaterally *Routine Cardiovascular Exam Cardiovascular: Present RRR *Routine Extremities Exam Extremities: Present edema Meds Home Medications and Allergies Home Medications ?Medication ?Instructions ?Recorded ?Confirmed ?Type alendronate 70 mg tablet (Fosamax) 70 mg PO WEEKLY #12 tabs 01/14/24 08/24/24 Rx famotidine 40 mg tablet (Pepcid) 40 mg PO DAILYP PRN Acid Reflux 06/24/24 08/24/24 History aspirin 81 mg tablet,delayed 81 mg PO DAILY #90 tabs 07/11/24 08/24/24 Rx release (Adult Aspirin Regimen) chlorthalidone 25 mg tablet 25 mg PO DAILY #90 tabs 07/11/24 08/24/24 Rx losartan 50 mg tablet (Cozaar) 100 mg (2 x 50 mg) PO DAILY #90 07/11/24 08/24/24 Rx tabs metoprolol succinate 50 mg 100 mg (2 x 50 mg) PO DAILY #90 07/11/24 08/24/24 Rx tablet,extended release 24 hr tabs (Toprol XL) amlodipine 5 mg tablet 5 mg PO DAILY #30 tabs 08/17/24 08/24/24 Rx cetirizine 10 mg tablet 10 mg PO DAILY 08/24/24 08/24/24 History fluticasone propionate 50 1 spray intranasal DAILYP PRN 08/24/24 08/24/24 History mcg/actuation nasal ALLERGIC RHINITIS spray,suspension New Prescriptions to Start Prescriptions: Allergies Allergy/AdvReac Type Severity Reaction Status Date / Time Sulfa (Sulfonamide Allergy Intermediate Hives Verified 08/23/24 14:51 Antibiotics) lisinopril AdvReac Intermediate Cough Verified 08/23/24 14:51 Assessment and Plan *Assessment and plan (1) Orthostasis: Status: Acute Category: Medical Code(s): I95.1 - Orthostatic hypotension (2) Abdominal discomfort: Status: Acute Category: Medical Code(s): R10.9 - Unspecified abdominal pain (3) Acute UTI: Status: Acute Category: Medical Code(s): N39.0 - Urinary tract infection, site not specified (4) ISIDRO (acute kidney injury): Status: Acute Category: Medical Code(s): N17.9 - Acute kidney failure, unspecified (5) Hyponatremia: Status: Acute Category: Medical Code(s): E87.1 - Hypo-osmolality and hyponatremia (6) General weakness: Status: Acute Category: Medical Code(s): R53.1 - Weakness Plan 1. Decreased appetite, weight loss with associated UTI causing constellation of acute kidney injury and orthostatic hypotension, symptomatic. -Okay to hold beta-dinorah therapy from cardiac standpoint and resume when blood pressure indicates -Patient getting IV fluids 2. Hyponatremia -Continue to follow on IV fluids 3. Acute kidney injury likely secondary to decreased oral intake -Monitor on IV fluids 4. Orthostatic hypotension -Likely secondary to decreased oral intake -Continue to hold antihypertensive medications including amlodipine, chlorthalidone, losartan and metoprolol Okay from cardiology standpoint to hold beta-dinorah and other antihypertensive medications as noted above. Would recommend obtaining echocardiogram in light of the patient's history of hypertension and now orthostatic hypotension.
[2024-08-24] MEDS: predniSONE 20MG TAB 30 MG PO (10:48)
[2024-08-24] MEDS: PANTOPRAZOLE SODIUM 40 MG in 0.9 % SODIUM CHLORIDE 100 ML 100 MG IV (10:48)
--- NOTE | 2024-08-24 10:54 | CA_ITS ---
APPROVED REPORT EXAM: Comprehensive 2D, Doppler, and color-flow Echocardiogram Box Machine Operator: Charlene Dennis RT(R) Ht: 5 ft 1 in Wt: 189lbs BSA: 1.84 BP: 95/54 mmHg Indications: orthostatic hypotension 12/3, HTN, pre diabetes, ISIDRO, CP 2D Dimensions LVEF (Maurice's) 56.90 % F: 54 - 74 LV Volume 76.40 mL F: 46 - 106 LV Volume Index 41.3 mL/m2 F: 29 - 61 LA Volume 25.50 mL LA Volume Index 13.78 mL/m2 (M/F) 16-34 EF AP4 61.80 % EF AP2 52.5 % EF BP 56.9 % GL Strain -16.7 % M-Mode Dimensions RVDd 2.87 cm (0.9-2.6) LA Diam 3.34 cm (1.9-4.0) LVDd 4.41 cm (3.5-5.7) LVDs 3.23 cm (3.5-5.7) IVSd 0.83 cm (0.6-1.1) PWd 0.93 cm (0.6-1.1) EF (Teich) 52.50% FS 26.80% EDV (Teich) 88.20 mL ESV (Teich) 41.90 mL LV Diastology E Decel Time 273 (160-240 msec) E/A Ratio 1.0 Mitral Valve MV E Max Jessee. 84.0 (40-130 cm/s) MV A Velocity 85.0 (40-130 cm/s) E/A Ratio 0.99 MV PHT 80.0 ms Left Ventricle The left ventricle is normal size. The left ventricular systolic function is normal. The left ventricular ejection fraction is within the normal range. There is increased LV wall thickness. There is normal LV segmental wall motion. The left ventricular diastolic function is normal. LVEF is 55%. Right Ventricle The right ventricle is mildly dilated. The right ventricular systolic function is normal. Atria Left atrium is mildly dilated. Right atrium is mildly dilated. There is no Doppler evidence of interatrial shunt. Aortic Valve Aortic valve is mildly thickened. There is no aortic valvular stenosis. Trace aortic regurgitation. Mitral Valve The mitral valve is normal in structure. No evidence of mitral valve stenosis. Trace mitral regurgitation. Tricuspid Valve The tricuspid valve leaflets are thin and pliable. Trace tricuspid regurgitation. There is insufficient TR jet to estimate RVSP. Pulmonic Valve The pulmonary valve is normal in structure. Mild pulmonic regurgitation. Great Vessels The aortic root is normal in size. IVC is normal in size and collapses >50% with inspiration. Pericardium There is no pericardial effusion. Other Information Study Quality: Fair Conclusion Normal biventricular systolic function. Mild RV dilation. Mild biatrial dilation. Mild PI. Electronically signed by : Marley Dodson MD 08/25/2024 11:50:40
--- OUTSIDE RECORDS SUMMARY | 2024-08-24 11:36 | XMS_ITS | Clinical Summary ---
Author Organization [facility] Address [address] [place] [address] Care Team Providers Care Superintendent Commissary Name Role Phone Uche Shelton MD Primary Care Provider + [phone] Allergies Active Allergy Reactions Criticality Noted Date Comments Lisinopril Cough High 07/20/2023 Sulfabenzamide Dizziness Low 07/20/2023 Sulfacetamide Rash Low 01/13/2013 Medications hydroCHLOROthiaz lawrence (HYDRODiuril) 25 MG tablet 1 tablet (25 mg). 12/22/2022 Active famotidine (Pepcid) 40 MG tablet 1 tablet (40 mg). 12/22/2022 Active losartan (Cozaar) 100 MG tablet 1 tablet (100 mg). 12/29/2022 Active metoprolol succinate XL (Toprol-XL) 100 MG 24 hr tablet 1 tablet (100 mg). 12/22/2022 Active pantoprazole (Protonix) 40 MG EC tablet Take 1 tablet (40 mg) by mouth 1 (one) time each day. 09/27/2022 Active sertraline (Zoloft) 100 MG tablet .COMPLEX 07/07/2023 Active alendronate (Fosamax) 70 MG tablet Take 1 tablet (70 mg) by mouth 1 (one) time per week. Active Social History Tobacco Use Types Packs/Day Years Used Date Smoking Tobacco: Never Smokeless Tobacco: Never Alcohol Use Standard Drinks/Week Comments Never 0 (1 standard drink = 0.6 oz pur e alcohol) Comments Unknown Sex and Gender Information Value Date Recorded Sex Assigned at Not on file Legal Sex Female 6:03 PM EDT Gender Identity Not on file Sexual Orientation Not on file Last Filed Vital Signs Vital Sign Reading Time Taken Comments Blood Pressure 128/66 08/31/2023 1:28 PM EST Pulse 68 08/31/2023 1:28 PM EST Temperature 36.6 ??C (97.9 ??F) 08/31/2023 1:28 PM ES T Respiratory Rate 18 08/31/2023 1:28 PM EST Oxygen Saturation 92% 08/31/2023 1:28 PM EST Inhaled Oxygen Concentration - - Weight 88 kg (194 lb) 08/31/2023 1:28 PM EST Height 154.9 cm (5' 1 ) 08/31/2023 1:28 PM EST Body Mass Index 36.66 08/31/2023 1:28 PM EST Plan of Treatment Health Maintenance Due Date Last Done Comments [facility]-Bone Density Scan 1951 [facility]-Depression Screening 1951 [facility]-Hepatitis C Screening 1950 [facility]-Medicare Annual Wellness (AWV) 1950 [facility]-/Child/Adol SDOH Screenings 1951 [facility]- SDOH Screenings 1969 [facility]-Adult SDOH Screenings 1969 [facility]-Zoster Vaccines (1 of 2) 1970 CT Colonography 1996 Colonoscopy 1996 FIT-DNA 1996 FIT 1996 FOBT 1996 Sigmoidoscopy 1996 [facility]-Colorectal Cancer Screening 1996 [facility]-DTaP,Tdap,and Td Vaccine s (1 - Tdap) 11/27/1996 11/26/1996 [facility]-Breast Cancer Screening 2001 [id number] Vaccine (2 - Mo derna risk series) 09/26/2021 08/29/2021 [facility]-Pneumococcal Vaccine: 65 + Years (2 of 2 - PPSV23 or PCV20) 11/25/2021 09/30/2021 [facility]-Influenza Vaccine (#1) 2024 [facility]-RSV Vaccine: 60+ Years o r (1 - 1-dose 75+ series) 2026 [facility]-Obesity Intervention Completed 08/31/2023 [facility]-HIB Vaccines Aged Out No longer e ligible based on patient's age to complete this topic [facility]-HPV Vaccines Aged Out No longer e ligible based on patient's age to complete this topic [facility]-Hepatitis A Vaccines Aged Out No longer eligible based on patient's age to complete this topic [facility]-IPV Vaccines Aged Out No longer e ligible based on patient's age to complete this topic [facility]-Rotavirus Vaccines Aged Out No lo nger eligible based on patient's age to complete this topic Insurance [place] S[place] [id number] [facility] MEDICARE Care Teams Superintendent Commissary Relationship Specialty Start Date End Date Uche Shelton MD [address] [facility] [address] [place] [address] PCP - General 02/01/21
--- OUTSIDE RECORDS SUMMARY | 2024-08-24 11:36 | XMS_ITS | Encounter Summary ---
Author Organization [facility] Address [address] [place] [address] Care Team Providers Care Forming Tube Selector Name Role Phone Uche Shelton MD Primary Care Provider [phone] Reason for Visit * Reason Comments Consult * Consultation (Routine) - Closed Specialty Diagnoses / Procedures Referred By Misa kincaid Referred To Contact Nephrology Diagnoses Disorder of kidney and ureter, unspecified Bob Weber, DO [address] [place] [address] Phone: tel: fax: [facility] Nephrology, Bone & Mineral Metabolism [address], [address] [place] [id number] Phone: tel: fax: Referral ID Status Reason Start Date Expiration Date V isits Requested Visits Authorized [id number] Closed Specialty Services Required 08/11/2023 02/09/2025 1 1 Encounter Details Date Type Department Care Team ([facility] Contact Info) Description 08/31/2023 1:[address] [facility] Nephrology, Bone & Mineral Metabolism [address] [place] [address] Ruchi Alanis MD [address] [place] [address] Disorder of kidney and ureter, unspecified Social History Tobacco Use Types Packs/Day Years Used Date Smoking Tobacco: Never Smokeless Tobacco: Never Alcohol Use Standard Drinks/Week Comments Never 0 (1 standard drink = 0.6 oz pur e alcohol) Comments Unknown Sex and Gender Information Value Date Recorded Sex Assigned at Not on file Legal Sex Female 6:03 PM EDT Gender Identity Not on file Sexual Orientation Not on file documented as of this encounter Last Filed Vital Signs Vital Sign Reading [...] Mass Index 36.66 08/31/2023 1:28 PM EST documented in this encounter Miscellaneous Notes * Progress Notes - Ruchi Enciso MD - 08/31/2023 1:40 PM EST Referring Physician: Bob Weber DO Reason for Referral: Worsening creatinine HISTORY OF PRESENT ILLNESS Sofie Munson presents as a new patient today with/for Consult for worsening creatinine. Ms. Munson is a very pleasant 72-year-old female who was referred to us for elevated creatinine. Sheis accompanied by her sister. She has a medical history that is significant for hypertension for which she takes medications. Herother medical history includes anxiety and depression. She had labs checked in January in June with her primary care physician, this was significant for elevated creatinine with worsening GFR and therefore she was referred to us. She currently denies any complaints. She denies any changes in her urination. She denies any chest pain. She denies any shortness a breath. She denies any worsening leg swelling. She recently had been suffering from neck pain she is been taking some ibuprofen. She also states that she can work on water intake. She has been dehydrated on most days. She notes that her urine hasmore odor Past Medical History: Diagnosis Date Diabetes mellitus (CMS/HCC) Diabetic nephropathy (CMS/HCC) Gout Hypertension Urinary tract infection History reviewed. No pertinent family history. Past Surgical History: Procedure Laterality Date SECTION, CLASSIC HIP ARTHROPLASTY Social History Tobacco Use Smoking status: Never Smokeless tobacco: Never Substance Use Topics Alcohol use: Never Current Outpatient Medications Medication Sig Dispense Refill alendronate (Fosamax) 70 MG tablet Take 1 tablet (70 mg) by mouth 1 (one) time per week. famotidine (Pepcid) 40 MG tablet 1 tablet (40 mg). hydroCHLOROthiazide (HYDRODiuril) 25 MG tablet 1 tablet (25 mg). losartan (Cozaar) 100 MG tablet 1 tablet (100 mg). metoprolol succinate XL (Toprol-XL) 100 MG 24 hr tablet 1 tablet (100 mg). pantoprazole (Protonix) 40 MG EC tablet Take 1 tablet (40 mg) by mouth 1 (one) time each day. sertraline (Zoloft) 100 MG tablet .COMPLEX No current facility-administered medications for this visit. Allergies Allergen Reactions Lisinopril Cough Sulfabenzamide Dizziness Sulfacetamide Rash REVIEW OF SYSTEMS 14 point ROS reviewed and pertinent positive documented in HPI OBJECTIVE Vitals: 08/31/23 1328 BP: 128/66 Pulse: 68 Resp: 18 Temp: 36.6 ??C (97.9 ??F) SpO2: 92% PHYSICAL EXAMINATION Constitutional: No acute distress. HEENT: normal. Pupils are equal, reactive to light. Cardiovascular: Normal rate and regular rhythm; No Edema. No abnormal pulsations Pulmonary: Normal effort of breathing; Abdominal: soft, mild distension. No tenderness; Musculoskeletal: Normal range of motion. Skin: No rashes or lesions in exposed areas. Neurologic: At baseline, No new focal deficits Psychiatric: Orientated to person, place, and time: Normal Mood and affect LAB RESULTS Cr 1.2, eGFR 44 Radiology: Pertinent available radiological studies reviewed. ASSESSMENT/PLAN Mr. Sofie Munson is a pleasant 72 y.o. year old female who presented to the clinic today for worsening creatinine ISIDRO KDIGO Stage 1, Etiology likely ARB + Diuretic + NSAID induced reduction in GFR Hypertension, controlled on medications Anxiety Depression Arthritis - Encourage patient to increase water intake - Asked patient to limit NSAIDs - Will recheck labs, if Cr improved, does not need follow up - If Cr remains worsening will consider other workup Status of kidney disease is not at goal Status of kidney disease will be reassessed 2 weeks . Monitoring for drug toxicity: ISIDRO Counseling Documentation: The patient was counseled regarding COUNSELING TOPICS: diagnostic results, prognosis, risk factor reductions, instructions for management, diagnostic impressions, importance of compliance with treatment, Heart healthy diet, regular physical activity and weight control, Avoidance of NSAIDs and other nephrotoxins, and shelter nature of condition. Education provided was verbal counseling. Additional time was spent in care coordination including medical record review. ENCOUNTER TIMING: I personally spent a total of 60 minutes on this encounter. This time includes face to face with patient, counseling and discussion, lab/result interpretation, coordination of follow-up care, document review. ORDERS PLACED THIS ENCOUNTER Orders Placed This Encounter Procedures Basic metabolic panel Standing Status: Future Standing Expiration Date: 03/01/2025 Order Specific Question: Release to patient in MyChart Answer: Immediate [1] Urinalysis with reflex microscopic Standing Status: Future Standing Expiration Date: 03/01/2025 Order Specific Question: Indicate type of workup: Answer: Non-infectious Workup Order Specific Question: Release to patient in MyChart Answer: Immediate [1] Albumin-creatinine ratio, urine, random Standing Status: Future Standing Expiration Date: 03/01/2025 Order Specific Question: Release to patient in MyChart Answer: Immediate [1] Protein, Random, Urine with Creatinine Standing Status: Future Standing Expiration Date: 03/01/2025 Order Specific Question: Release to patient in MyChart Answer: Immediate [1] documented in this encounter Plan of Treatment Scheduled Orders Name Type Priority Associated Diagnoses Orde r Schedule Basic metabolic panel Lab Routine Disorder of kidney and ureter, unspecified Expected: 08/31/2023 (Approximate), Expires: 03/01/2025 Urinalysis with reflex microscopic Lab Routine Disorder of kidney and ureter, unspecified Expected: 08/31/2023 (Approximate), Expires: 03/01/2025 Albumin-creatinine ratio, urine, random Lab Routine Disorder of kidney and ureter, unspecified Expected: 08/31/2023 (Approximate), Expires: 03/01/2025 Protein, Random, Urine with Creatinine Lab Routine Disorder of kidney and ureter, unspecified Expected: 08/31/2023 (Approximate), Expires: 03/01/2025 documented as of this encounter Visit Diagnoses Diagnosis Disorder of kidney and ureter, unspecified documented in this encounter Additional Health Concerns Assessment Noted Time A fall risk assessment has been complete d for the patient 08/31/2023 1:39 PM EST A Body Mass Index follow-up plan has been documented for the patient 09/02/2023 12:43 AM EST documented as of this encounter Care Teams Forming Tube Selector Relationship Specialty Start Date End Date Uche Shelton MD [address] [place] [address] PCP - General 02/01/21 documented as of this encounter
--- OUTSIDE RECORDS SUMMARY | 2024-08-24 11:36 | XMS_ITS | Encounter Summary ---
Author Organization [facility] Address [address] [place] [address] Care Team Providers Care Dish Carrier Name Role Phone Uche Shelton MD Primary Care Provider [phone] Encounter Details Date Type Department Care Team ([facility] st Contact Info) Description 10/14/2023 Telephone [facility] Nephrology, Bone & Mineral Metabolism [address] [facility], [address] [place] [address] Ruchi Enciso MD [address] [place] [address] Social History Tobacco Use Types Packs/Day Years [...] on file documented as of this encounter Miscellaneous Notes * Telephone Encounter - Felisha Shrestha - 10/14/2023 3:09 PM EST Called pt back to let her know that Dr. Enciso reviewed her labs from [employer] He states her kidney function is good and can be discharged from the clinic. Pt understands and was happy to hear the news. I did tell her to reach out to us in the future if she needed anything at all. Pt agreed. I will cancel appt and discharge from clinic. documented in this encounter Plan of Treatment Not on file documented as of this encounter Visit Diagnoses Not on filedocumented in this encounter Additional Health Concerns Assessment Noted Time A fall risk assessment has been complete d for the patient 08/31/2023 1:39 PM EST A Body Mass Index follow-up plan has been documented for the patient 09/02/2023 12:43 AM EST documented as of this encounter Care Teams Dish Carrier Relationship Specialty Start Date End Date Uche Shelton MD [address] [place] [address] PCP - General 02/01/21 documented as of this encounter
--- OUTSIDE RECORDS SUMMARY | 2024-08-24 11:36 | XMS_ITS | Encounter Summary ---
Author Organization [facility] Address [address] [id number] Care Team Providers Care Catering Convention Services Manager Name Role Phone Uche Shelton MD Primary Care Provider [phone] Encounter Details Date Type Department Care Team (Late st Contact Info) Description 08/21/2023 Orders Only [facility] Nephrology, Bone & Mineral Metabolism [address], [address] [place] [address] Ruchi Alanis MD [address] [place] [address] Creatinine elevation (Primary Dx) Social History Tobacco Use Types Packs/Day Years Used Date Smoking Tobacco: Never Assessed Comments Unknown Sex and Gender Information Value Date Recorded Sex Assigned at Not on file Legal Sex Female 6:03 PM EDT Gender Identity Not on file Sexual Orientation Not on file documented as of this encounter Plan of Treatment Scheduled Orders Name Type Priority Associated Diagnoses Orde r Schedule Basic Metabolic Panel, Plasma Lab Routine Creatinine elevation Expected: 08/31/2023 (Approximate), Expires: 02/19/2025 documented as of this encounter Visit Diagnoses Diagnosis Creatinine elevation- Primary documented in this encounter Care Teams Catering Convention Services Manager Relationship Specialty Start Date End Date Uche Shelton MD [address] [place] [address] PCP - General 02/01/21 documented as of this encounter
--- OUTSIDE RECORDS SUMMARY | 2024-08-24 11:36 | XMS_ITS | Encounter Summary ---
Author Organization [facility] Address [address] [place] [address] Care Team Providers Care Print Washer Name Role Phone Uche Shelton MD Primary Care Provider [phone] Encounter Details Date Type Department Care Team (Latest Contact Info) Description 08/31/2023 Travel Social History Tobacco Use Types Packs/Day Years [...] as of this encounter Plan of Treatment Not on [...] documented as of this encounter Care Teams Print Washer Relationship Specialty Start Date End Date Uche Shelton MD [address] [facility] [address] [place] [address] PCP - General 02/01/21 documented as of this encounter
[2024-08-24 12:00] VITALS: BP 148/73; PULSE 72; RESP 16; TEMP 36.7; O2SAT 97
[2024-08-24] MEDS: 0.9 % SODIUM CHLORIDE 1000ML 1,000 ML 85 ML IV ×2 (12:16→23:10)
[2024-08-24] MEDS: POLYETHYLENE GLYCOL 3350 17 GM PACKET PO (12:40)
--- NOTE | 2024-08-24 14:10 | EXP.PN ---
Subjective *Date: 08/24/24 *Time: 14:10 Exam Data for Last 24 hours Vital signs and Labs for Last 24 Hours: Temp Pulse Resp BP Pulse Ox O2 Del Method 98.1 F 72 16 148/73 H 97 Room Air 08/24/24 12:00 08/24/24 12:00 08/24/24 12:00 08/24/24 12:00 08/24/24 12:00 08/24/24 12:44 Laboratory Results - last 24 hr 08/23/24 15:47: WBC 11.6 H, RBC 4.22, Hgb 12.6, Hct 36.6 L, MCV 86.6, MCH 29.8, MCHC 34.4, RDW 13.6, Plt Count 372, MPV 7.9, Neut % (Auto) 78.9, Lymph % (Auto) 16.4, Burnet % (Auto) 3.7, Eos % (Auto) 0.6, Baso % (Auto) 0.4, Neut # (Auto) 9.2 H, Lymph # (Auto) 1.9, Burnet # (Auto) 0.4, Eos # (Auto) 0.1, Baso # (Auto) 0.1, Sodium 126 L, Potassium 3.6, Chloride 89 L, Carbon Dioxide 28, Anion Gap 12.6, BUN 23 H, Creatinine 2.60 H, Estimated Creat Clear 26, Estimated GFR 18 L*, Est GFR ( Amer) 22 L, Glucose 138 H, Calcium 9.1, Phosphorus 3.0, Magnesium 2.2, Total Bilirubin 0.8, AST 40 H, ALT 35, Alkaline Phosphatase 62, Troponin I < 0.01, NT-Pro-B Natriuret Pep 825 H, Total Protein 7.8, Albumin 4.1, Globulin 3.7 H, Albumin/Globulin Ratio 1.1, Lipase 130 08/23/24 16:21: VBG pH 7.40, VBG pCO2 44.7, VBG pO2 28.3, VBG HCO3 27.3, VBG Total CO2 28.7 H, VBG O2 Saturation 55.0, VBG Base Excess 2.6 H, VBG Lactic Acid 2.1 H 08/23/24 16:50: Urine Color Yellow, Urine Appearance Clear, Urine pH 6.0, Ur Specific Newborn <= 1.005, Urine Protein Negative, Urine Glucose (UA) Negative, Urine Ketones Negative, Urine Blood Negative, Urine Nitrate Negative, Urine Bilirubin Negative, Urine Urobilinogen 0.2, Ur Leukocyte Esterase 1+ A, Urine RBC 3-5, Urine WBC 50-100, Ur Squamous Epith Cells 10-20, Urine Bacteria 4+ 08/23/24 19:30: Troponin I < 0.01 08/23/24 20:55: Lactate 0.8 08/23/24 22:37: Troponin I 0.03 08/24/24 05:34: WBC 9.0, RBC 3.74 L, Hgb 11.4 L, Hct 32.5 L, MCV 87.1, MCH 30.4, MCHC 34.9, RDW 13.9, Plt Count 297, MPV 7.5, Neut % (Auto) 75.0, Lymph % (Auto) 18.2, Burnet % (Auto) 5.0, Eos % (Auto) 1.3, Baso % (Auto) 0.4, Neut # (Auto) 6.7, Lymph # (Auto) 1.6, Burnet # (Auto) 0.5, Eos # (Auto) 0.1, Baso # (Auto) 0.0, Sodium 129 L, Potassium 3.5, Chloride 95 L, Carbon Dioxide 27, Anion Gap 10.5, BUN 25 H, Creatinine 2.60 H, Estimated Creat Clear 27, Estimated GFR 18 L*, Est GFR ( Amer) 22 L, Glucose 113 H, Lactate 0.6 L, Calcium 8.3 L, Magnesium 2.3, Total Bilirubin 0.4, AST 35, ALT 25 D, Alkaline Phosphatase 52, Total Protein 6.6, Albumin 3.4 L D, Globulin 3.2, Albumin/Globulin Ratio 1.1 I & O for Last 24 hours: Intake & Output 08/21/24 08/22/24 08/23/24 08/24/24 23:59 23:59 23:59 23:59 Intake Total 0 / 0 Output Total 0 / 0 0 / 0 Balance 0 / 0 0 / 0 Weight 86.636 kg 86.636 kg Microbiology Reports for the Last 24 Hours: Microbiology 08/23/24 16:50 Urine,Clean Catch Urine Culture - Preliminary Gram Negative Rods Constitutional Constitutional: no acute distress and obese *Routine HEENT Exam Head: Present normocephalic Eye: Present EOMI and PERRL ENT: Present mucous membranes moist *Routine Neck Exam Neck: Present supple; Absent lymphadenopathy *Routine Respiratory Exam Respiratory: Present CTA bilaterally *Routine Cardiovascular Exam Cardiovascular: Present RRR *Routine Abdominal Exam Abdominal: Present soft and normoactive bowel sounds; Absent tenderness *Routine Extremities Exam Extremities: Absent cyanosis, clubbing or edema *Routine Skin Exam Skin: Present warm; Absent rash *Routine Neurological Exam Neurological: Present alert and oriented X3 Assessment and Plan *Assessment and plan (1) Hyponatremia: Status: Acute Category: Medical Code(s): E87.1 - Hypo-osmolality and hyponatremia (2) ISIDRO (acute kidney injury): Status: Acute Category: Medical Code(s): N17.9 - Acute kidney failure, unspecified (3) Acute UTI: Status: Acute Category: Medical Code(s): N39.0 - Urinary tract infection, site not specified (4) Orthostasis: Status: Acute Category: Medical Code(s): I95.1 - Orthostatic hypotension (5) General weakness: Status: Acute Category: Medical Code(s): R53.1 - Weakness Plan Sofie Munson is a 73-year-old female with a medical history significant for hypertension, GERD who presents with progressive weakness, decreased oral appetite for the past 3 to 4 weeks. #Generalized weakness #Decreased oral intake #Orthostatic hypotension #Hyponatremia #UTI ? Weakness, orthostatic hypotension, likely in the setting of UTI, poor oral intake for the past 3 to 4 weeks. ? UA grossly abnormal, urine culture currently pending. ? Initial sodium 126, improved to 129 today. ? Ceftriaxone day 2. ? Follow-up urine, blood cultures. ? Continue NS at 85 mL/h. Given total of 2 L boluses. ? Repeat orthostatics tomorrow. ? Treat GERD as below. ? PT/OT consulted, pending recommendations. #Constipation ? MiraLAX daily. #GERD ? Patient states has been having hiccups for the past weeks. Takes famotidine at home. ? Given IV Protonix 40 mg, continue with Protonix 40 mg nightly. Full code Lovenox 40
--- NOTE | 2024-08-24 15:09 | HMH.OTEV ---
OT Inpatient Evaluation Rehab OT IP Evaluation Start: 08/24/24 14:16 Freq: ONCE Status: Active Protocol: Document 08/24/24 15:04 IMTIAZ (Rec: 08/24/24 15:09 [email or web address] [id number]) Rehab OT IP Assessment Subjective History This 73-year-old female, went to her physician today noting to have orthostatic hypotension. Patient came to the emergency room where this was found to still be constant .. Lab work was done which showed that the patient was extremely hyponatremic with very poor kidney function. Chest x-ray were done abdominal CT done finding no acute problems. Patient's main problems that she really has also stopped eating and has gone just to water lately. . While in the ER she was given 1 L of normal saline and presently while lying on the stretcher is asymptomatic. After conferring with the ER physician do agree that she does need to be admitted. For the orthostatic hypotension also for this kidney function and very significant decreased in sodium. Plan to consult gastroenterology to evaluate why the patient is no longer having an appetite and unable to tolerate regular food. Will also hold her diuretic which is known to lower sodium ., Order will be placed and also limit the amount of plain water the patient drinks while on the floor. Patient was noted to have a low limited UTI. She has received 2 g of Rocephin in the ER, patient had no urinary tract symptoms reported., Will discuss with daytime provider whether or not further antibiotics are needed . Patient lives in 1 story home with no JOSE DAVID. Lives with . Independent with ADLs and fx'l mobility prior to hospitalization. Subjective I can get up. Analysis Patient ability to ambulate within room, toileting and LB drsg independently. No LOB noted. Bed mobility, transfers and ambulation independently. Objective Patient Orientation Person,Place,Name,Age Right Upper Extremity Gross ROM WFL Left Upper Extremity Gross ROM WFL Bed Mobility bed mobility - supine/sit Assist Level Independent Transfer Training Sit/Stand/Step Transfer,Sit/ Stand/Pivot Transfer Assist Level Independent Chair Transfer Ability Independent Chair Transfer Technique Sit to/from Ambulatory Chair Transfer Assistive Devices None Lower Body Dressing Ability Independent Rehab OT IP prob,goals,plan Problems Date of Evaluation: 08/24/24 Rehab Potential Rehab Potential Innapropriate for Skilled Therapy Discharge Plan OT Discharge Plan Patient appears to be at baseline. Independent with ADLs and fx'l mobility. Recommend d/c to home after medical d/c. Eval Complexity Eval Charge Codes 04816 - Low Complexity PHYSICIAN CERTIFICATION: I certify the specified therapy services for Sofie Sharmila Munson are required, authorized, and reviewed every 30 days.
[2024-08-24 16:00] VITALS: BP 120/72; PULSE 82; RESP 16; TEMP 36.6; O2SAT 95
--- NOTE | 2024-08-24 17:33 | PC.NURSE ---
PT IS RESTING IN BED. ALERT AND ORIENTED X4. EATING AND DRINKING WELL. AMBULATES TO THE BATHROOM STANDBY ASSIST. LUNG SOUNDS CLEAR. ABDOMEN SOFT/NON TENDER WITH HYPOACTIVE BOWEL SOUNDS. PT STILL HAS NOT HAD BOWEL MOVEMENT BUT IS PASSING FLATUS. WILL CONTINUE TO MONITOR.
[2024-08-24 19:41] VITALS: BP 123/47; PULSE 91; RESP 18; TEMP 36.8; O2SAT 94
[2024-08-24] MEDS: PANTOPRAZOLE 40MG TABLET 40 MG PO (21:15)
[2024-08-24] MEDS: CEFTRIAXONE 1 GM 1 GM in 0.9 % SODIUM CHLORIDE 50 ML IV (21:20)
[2024-08-25] VITALS: BP 108/50; PULSE 71; RESP 16; TEMP 36.8; O2SAT 92
[2024-08-25] MEDS: 0.9 % SODIUM CHLORIDE 1000ML 1,000 ML 85 ML IV (01:43)
[2024-08-25 04:00] VITALS: BP 108/51; PULSE 74; RESP 18; TEMP 36.6; O2SAT 96; BMI 35.9
--- NOTE | 2024-08-25 06:44 | PC.NURSE ---
Pt. is alert and orientated x 4. Pt. up ambulates to the bathroom with standby assist. Pt. was drinking gatorade . IVF infusing. up to shower VSS. Personal items and call reynolds in reach.
[2024-08-25 08:00] VITALS: BP 136/63; PULSE 73; RESP 20; TEMP 36.6; O2SAT 96
[2024-08-25 08:35] LABS: Albumin Level 3.5 g/dl (3.5-5.0); Chloride 99 mmol/L (98-107); Potassium 3.7 mmoL/L (3.5-5.1); Sodium 134 mmol/L (136-145)
[2024-08-25] MEDS: POLYETHYLENE GLYCOL 3350 17 GM PACKET PO (08:35)
[2024-08-25] MEDS: ENOXAPARIN 30MG/0.3ML SYRINGE 30 MG SUBCUT (08:35)
[2024-08-25 08:36] LABS: Basophils % 0.2 % (0.1-2.0); Eosinophils % 0.1 % (0.1-12.0); Hematocrit 31.1 % (37.0-47.0); Hemoglobin 10.4 g/dL (12.2-16.2); Lymphocytes # 1.2 K/mm3 (0.7-4.5); Lymphocytes % 11.2 % (10-50); Mean Corpuscular HGB Conc 33.6 g/dL (31.8-35.4); Mean Corpuscular Hemoglobin 29.8 pg (27.0-31.2); Mean Corpuscular Volume 88.6 fl (81-99); Mean Platelet Volume 7.7 fl (7.4-10.4); Monocytes # 0.4 K/mm3 (0.1-1.0); Monocytes % 3.5 % (1.7-9.3); Neutrophils % 85.1 % (37.0-80.0); Platelet Count 328 K/mm3 (142-424); Red Blood Count 3.51 M/mm3 (4.20-5.40); Red Cell Distribution Width 13.6 % (11.5-17.5); White Blood Count 10.6 K/mm3 (4.8-10.8)
[2024-08-25] MEDS: MAGNESIUM OXIDE 400MG TABLET 400 MG PO (08:36)
[2024-08-25] MEDS: ASPIRIN EC 81MG TABLET 81 MG PO (08:36)
[2024-08-25] MEDS: predniSONE 20MG TAB 30 MG PO (08:36)
[2024-08-25 08:37] LABS: MANUAL DIFFERENTIAL MANUAL DIFFERENTIAL (MANUAL DIFF)
[2024-08-25 08:38] LABS: Alanine Aminotransferase 32 U/L (12-78); Albumin/Globulin Ratio 1.1 (1.1-1.8); Alkaline Phosphatase 47 U/L (38-126); Anion Gap 13.7 mEq/L (5-15); Aspartate Amino Transferase 34 U/L (14-36); Bilirubin,Total 0.3 mg/dl (0.2-1.3); Blood Urea Nitrogen 25 mg/dl (7-17); Calcium 8.4 mg/dl (8.4-10.2); Carbon Dioxide 25 mmol/L (22.0-30.0); Creatinine Clearance Estimated 37 mL/min (50-200); Estimated Glomerular Filt Rate 26 ml/min (>60); GFR (African American) 31 ML/MIN (>60); Globulin 3.2 g/dL (1.3-3.2); Glucose 151 mg/dl (74-100); Total Protein,Serum 6.7 g/dl (6.3-8.2)
--- NOTE | 2024-08-25 08:43 | EXP.CARD.PN ---
Subjective Subjective Date: 08/25/24 Time: 08:44 Principal diagnosis: ISIDRO with orthostatic hypotension Interval history: 73-year-old white female in bed in no acute distress. Definitely states she is feeling better since receiving IV fluids. Blood pressure has improved as well. Exam Data for Last 24 hours Vital signs and Labs for Last 24 Hours: Temp Pulse Resp BP Pulse Ox O2 Del Method 97.8 F 74 18 108/51 L 96 Room Air 08/25/24 04:00 08/25/24 04:00 08/25/24 04:00 08/25/24 04:00 08/25/24 04:00 08/25/24 06:42 Laboratory Results - last 24 hr 08/25/24 08:12: WBC 10.6, RBC 3.51 L, Hgb 10.4 L, Hct 31.1 L, MCV 88.6, MCH 29.8, MCHC 33.6, RDW 13.6, Plt Count 328, MPV 7.7, Neut % (Auto) 85.1 H, Lymph % (Auto) 11.2, [place] % (Auto) 3.5, Eos % (Auto) 0.1, Baso % (Auto) 0.2, Neut # (Auto) 9.0 H, Lymph # (Auto) 1.2, [place] # (Auto) 0.4, Eos # (Auto) 0.0, Baso # (Auto) 0.0, Sodium 134 L, Potassium 3.7, Chloride 99, Albumin 3.5 I & O for Last 24 hours: Intake & Output 08/22/24 08/23/24 08/24/24 08/25/24 11:59 11:59 11:59 11:59 Intake Total 0 / 0 3379 / 3379 Output Total 0 / 0 0 / 0 Balance 0 / 0 3379 / 3379 Weight 191 lb 195 lb 6 oz Microbiology Reports for the Last 24 Hours: Microbiology 08/23/24 16:50 Urine,Clean Catch Urine Culture - Final Escherichia coli 08/23/24 20:55 Blood Blood Culture - Preliminary NO GROWTH AFTER 24 HOURS 08/23/24 20:55 Blood Blood Culture - Preliminary NO GROWTH AFTER 24 HOURS Constitutional Constitutional: no acute distress *Routine Respiratory Exam Respiratory: Present CTA bilaterally *Routine Cardiovascular Exam Cardiovascular: Present RRR Progress Note: A&P Assessment and plan (1) Hyponatremia: Status: Acute (2) ISIDRO (acute kidney injury): Status: Acute (3) Acute UTI: Status: Acute (4) Orthostasis: Status: Acute (5) General weakness: Status: Acute Assessment and Plan Assessment and Plan for All Diagnoses:: 1. Decreased appetite, weight loss with associated UTI causing constellation of acute kidney injury and orthostatic hypotension, symptomatic. -Okay to hold beta-dinorah therapy from cardiac standpoint and resume when blood pressure indicates -Patient getting IV fluids 2. Hyponatremia -improving to 134 today 3. Acute kidney injury likely secondary to decreased oral intake -Monitor on IV fluids -Cr down to 1.9 today 4. Orthostatic hypotension -Likely secondary to decreased oral intake -Continue to hold antihypertensive medications including amlodipine, chlorthalidone, losartan and metoprolol Pt improving. BP stable. Echo prelim shows preserved EF (official report pending) Nothing further to add. Please call if needed.
--- NOTE | 2024-08-25 09:38 | HMH.PTEV ---
Physical Therapy Evaluation Rehab PT IP Evaluation Start: 08/24/24 14:16 Freq: ONCE Status: Active Protocol: Document 08/25/24 09:36 TRIPP (Rec: 08/25/24 09:38 TRIPP [id number]) Subjective/History History History Per H&P: This 73-year-old female, went to her physician today noting to have orthostatic hypotension. Patient came to the emergency room where this was found to still be constant.. Lab work was done which showed that the patient was extremely hyponatremic with very poor kidney function. Chest x-ray were done abdominal CT done finding no acute problems. Patient's main problems that she really has also stopped eating and has gone just to water lately.. While in the ER she was given 1 L of normal saline and presently while lying on the stretcher is asymptomatic. Subjective Subjective Patient lives in 1 story home with no JOSE DAVID. Lives with . Independent with ADLs and fx'l mobility prior to hospitalization. New diagnosis of cancer in past 12 No months? Rehab PT IP Eval Objective Appearance Patient Behavior Appropriate,Cooperative Patient Orientation Person,Place Difficulty following instructions none Speech Pattern Clear Ambulation Patient Able to Ambulate Yes Ambulation Observation IP General Gait Pattern Observation No Deviations/Normal Ambulation Distance (feet) 30 Ambulation Assistive Device None Ambulation Ability Independent Balance Ability to Arise Able, uses arms to help Sitting Balance Steady, safe Standing Balance Narrow stance w/o support Dynamic Sitting Balance Ability Good Dynamic Standing Balance Ability Good Rehab PT IP prob,goals,plan Problems Date of Evaluation: 08/25/24 Rehab Potential Rehab Potential Innapropriate for Skilled Therapy Discharge Plan PT Discharge Plan Pt safe to d/c home when deemed medically necessary d/t current level of mobility, home set-up, and family support. Pt not appropriate for skilled acute care PT at this time d/t pt?s mobility being at baseline. Eval Complexity Eval Charge Codes 56537 - Moderate Complexity PHYSICIAN CERTIFICATION: I certify the specified therapy services for Sofie Munson are required, authorized, and reviewed every 30 days.
[2024-08-25 09:58] LABS: Lymphocytes % 12 % (10-50); Monocytes % 2 % (2-9); Neutrophils % 86 % (42-76); Total Cells Counted 100
[2024-08-25 09:59] LABS: Platelet Estimate Normal; RBC Morphology Normal
[2024-08-25] MEDS: BISACODYL 5MG TABLET 10 MG PO (11:28)
[2024-08-25] MEDS: GLYCERIN ADULT 3GM SUPP 3 GM RC (11:31)
--- NOTE | 2024-08-25 14:08 | EXP.DC.SUM ---
General Admission date:: 08/23/24 HPI HPI HPI: This 73-year-old female, went to her physician today noting to have orthostatic hypotension. Patient came to the emergency room where this was found to still be constant.. Lab work was done which showed that the patient was extremely hyponatremic with very poor kidney function. Chest x-ray were done abdominal CT done finding no acute problems. Patient's main problems that she really has also stopped eating and has gone just to water lately.. While in the ER she was given 1 L of normal saline and presently while lying on the stretcher is asymptomatic. After conferring with the ER physician do agree that she does need to be admitted. For the orthostatic hypotension also for this kidney function and very significant decreased in sodium. Plan to consult gastroenterology to evaluate why the patient is no longer having an appetite and unable to tolerate regular food. Will also hold her diuretic which is known to lower sodium., Order will be placed and also limit the amount of plain water the patient drinks while on the floor. Patient was noted to have a low limited UTI. She has received 2 g of Rocephin in the ER, patient had no urinary tract symptoms reported., Will discuss with daytime provider whether or not further antibiotics are needed. Hospital Course Hospital Course Hospital Course: Sofie Munson is a 73-year-old female with a medical history significant for hypertension, GERD who presents with progressive weakness, decreased oral appetite for the past 3 to 4 weeks. #Generalized weakness #Decreased oral intake #Orthostatic hypotension #Hyponatremia #UTI ? Initial weakness, orthostatic hypotension, likely in the setting of UTI, poor oral intake for the past 3 to 4 weeks. ? UA grossly abnormal, urine cultures show E. coli which is pansensitive. ? Initial sodium 126, improved to 134 today. ? Patient clinically improved with ceftriaxone for 2 days, and improved and now baseline oral food toleration. ? PT/OT consulted, did not recommend further rehab. ? Medically stable for discharge. ? Discharged with 3 more days of cefdinir. #ISIDRO on CKD stage III ? Initial creatinine 2.6. Improved to 1.9 today. Baseline around 1.2. ? Patient is tolerating oral intake, encouraged to continue on discharge. ? Hold nephrotoxic medications, including home lisinopril, chlorthalidone, alendronate. #Gout ? Inflamed left MTP joint. History of gout. ? Started prednisone 30 mg for 5 days. ? Discharged with prednisone for 3 more days. #Constipation ? MiraLAX daily. #GERD ? Patient states has been having hiccups for the past weeks. Takes famotidine at home. ? Given IV Protonix 40 mg, continue with Protonix 40 mg nightly. Exam Data for Last 24 hours Vital signs and Labs for Last 24 Hours: Temp Pulse Resp BP Pulse Ox O2 Del Method 97.8 F 73 20 136/63 96 Room Air 08/25/24 08:00 08/25/24 08:00 08/25/24 08:00 08/25/24 08:00 08/25/24 08:00 08/25/24 11:00 Laboratory Results - last 24 hr 08/25/24 08:12: WBC 10.6, RBC 3.51 L, Hgb 10.4 L, Hct 31.1 L, MCV 88.6, MCH 29.8, MCHC 33.6, RDW 13.6, Plt Count 328, MPV 7.7, Neut % (Auto) 85.1 H, Lymph % (Auto) 11.2, [place] % (Auto) 3.5, Eos % (Auto) 0.1, Baso % (Auto) 0.2, Neut # (Auto) 9.0 H, Lymph # (Auto) 1.2, [place] # (Auto) 0.4, Eos # (Auto) 0.0, Baso # (Auto) 0.0, Total Counted 100, Neutrophils % (Manual) 86 H, Lymphocytes % (Manual) 12, Monocytes % (Manual) 2, Platelet Estimate Normal, RBC Morphology Normal, Sodium 134 L, Potassium 3.7, Chloride 99, Carbon Dioxide 25, Anion Gap 13.7, BUN 25 H, Creatinine 1.90 H D, Estimated Creat Clear 37, Estimated GFR 26 L, Est GFR ( Amer) 31 L D, Glucose 151 H, Calcium 8.4, Total Bilirubin 0.3, AST 34, ALT 32 D, Alkaline Phosphatase 47, Total Protein 6.7, Albumin 3.5, Globulin 3.2, Albumin/Globulin Ratio 1.1 I & O for Last 24 hours: Intake & Output 08/22/24 08/23/24 08/24/24 08/25/24 23:59 23:59 23:59 23:59 Intake Total 1703 / 3379 2035 Output Total 0 / 0 0 / 0 0 / 0 Balance 0 / 0 1702 Weight 86.636 kg 86.636 kg 88.621 kg Microbiology Reports for the Last 24 Hours: Microbiology 08/23/24 16:50 Urine,Clean Catch Urine Culture - Final Escherichia coli 08/23/24 20:55 Blood Blood Culture - Preliminary NO GROWTH AFTER 24 HOURS 08/23/24 20:55 Blood Blood Culture - Preliminary NO GROWTH AFTER 24 HOURS Constitutional Constitutional: no acute distress *Routine HEENT Exam Head: Present normocephalic Eye: Present EOMI and PERRL ENT: Present mucous membranes moist *Routine Neck Exam Neck: Present supple; Absent lymphadenopathy *Routine Respiratory Exam Respiratory: Present CTA bilaterally *Routine Cardiovascular Exam Cardiovascular: Present RRR *Routine Abdominal Exam Abdominal: Present soft and normoactive bowel sounds; Absent tenderness *Routine Extremities Exam Extremities: Absent cyanosis, clubbing or edema *Routine Skin Exam Skin: Present warm; Absent rash *Routine Neurological Exam Neurological: Present alert and oriented X3 Results Data Completed and Pending Labs on day of discharge: Labs from last 24 hours 08/25/24 08:12 WBC 10.6 RBC 3.51 L Hgb 10.4 L Hct 31.1 L MCV 88.6 MCH 29.8 MCHC 33.6 RDW 13.6 Plt Count 328 MPV 7.7 Neut % (Auto) 85.1 H Lymph % (Auto) 11.2 [place] % (Auto) 3.5 Eos % (Auto) 0.1 Baso % (Auto) 0.2 Neut # (Auto) 9.0 H Lymph # (Auto) 1.2 [place] # (Auto) 0.4 Eos # (Auto) 0.0 Baso # (Auto) 0.0 Total Counted 100 Neutrophils % (Manual) 86 H Lymphocytes % (Manual) 12 Monocytes % (Manual) 2 Platelet Estimate Normal RBC Morphology Normal Sodium 134 L Potassium 3.7 Chloride 99 Carbon Dioxide 25 Anion Gap 13.7 BUN 25 H Creatinine 1.90 H D Estimated Creat Clear 37 Estimated GFR 26 L Est GFR ( Amer) 31 L D Glucose 151 H Calcium 8.4 Total Bilirubin 0.3 AST 34 ALT 32 D Alkaline Phosphatase 47 Total Protein 6.7 Albumin 3.5 Globulin 3.2 Albumin/Globulin Ratio 1.1 Preliminary micro results at discharge 08/23/24 20:55 Blood Culture - Preliminary Blood NO GROWTH AFTER 24 HOURS 08/23/24 20:55 Blood Culture - Preliminary Blood NO GROWTH AFTER 24 HOURS DS: Diagnosis Discharge Diagnosis (1) Hyponatremia: Status: Acute Code(s): E87.1 - Hypo-osmolality and hyponatremia (2) ISIDRO (acute kidney injury): Status: Acute Code(s): N17.9 - Acute kidney failure, unspecified (3) Acute UTI: Status: Acute Code(s): N39.0 - Urinary tract infection, site not specified (4) Orthostasis: Status: Acute Code(s): I95.1 - Orthostatic hypotension (5) General weakness: Status: Acute Code(s): R53.1 - Weakness Meds Home Medications and Allergies Home Medications ?Medication ?Instructions ?Recorded ?Confirmed ?Type alendronate 70 mg tablet (Fosamax) 70 mg PO WEEKLY #12 tabs 01/14/24 08/24/24 Rx aspirin 81 mg tablet,delayed 81 mg PO DAILY #90 tabs 07/11/24 08/24/24 Rx release (Adult Aspirin Regimen) amlodipine 5 mg tablet 5 mg PO DAILY #30 tabs 08/17/24 08/24/24 Rx cetirizine 10 mg tablet 10 mg PO DAILY 08/24/24 08/24/24 History fluticasone propionate 50 1 spray intranasal DAILYP PRN 08/24/24 08/24/24 History mcg/actuation nasal ALLERGIC RHINITIS spray,suspension cefdinir 300 mg capsule 300 mg PO BID 3 days #6 caps 08/25/24 Rx pantoprazole 40 mg tablet,delayed 40 mg PO DAILY #30 tabs 08/25/24 Rx release (Protonix) polyethylene glycol 3350 17 gram 17 g PO DAILY 30 days #30 ea 08/25/24 Rx oral powder packet (HealthyLax) prednisone 20 mg tablet 30 mg (1.5 x 20 mg) PO DAILY 3 08/25/24 Rx days #5 tabs New Prescriptions to Start Prescriptions: cefdinir Bob June pantoprazole [Protonix] Bob June polyethylene glycol 3350 [HealthyLax] Bob June prednisone Bob June Allergies Allergy/AdvReac Type Severity Reaction Status Date / Time Sulfa (Sulfonamide Allergy Intermediate Hives Verified 08/23/24 14:51 Antibiotics) lisinopril AdvReac Intermediate Cough Verified 08/23/24 14:51 Discharge Plan Disposition Patient Disposition: Home, Self-Care Condition: Fair Discharge Order Discharge Orders: Discharge Order (Routine); Ordered 08/25/24 Ordered By: Bob June Follow up Plan Prescriptions/Medication Reconciliation: New polyethylene glycol 3350 [HealthyLax] 17 gram Powder In Packet 17 g PO DAILY 30 Days Qty: 30 0RF prednisone 20 mg Tablet 30 mg PO DAILY 3 Days Qty: 5 0RF cefdinir 300 mg capsule 300 mg PO BID 3 Days Qty: 6 0RF pantoprazole [Protonix] 40 mg tablet,delayed release (DR/EC) 40 mg PO DAILY Qty: 30 1RF Rx Instructions: Please take on empty stomach in the morning. Continued aspirin [Adult Aspirin Regimen] 81 mg tablet,delayed release (DR/EC) 81 mg PO DAILY Qty: 90 4RF amlodipine 5 mg tablet 5 mg PO DAILY Qty: 30 2RF alendronate [Fosamax] 70 mg tablet 70 mg PO WEEKLY Qty: 12 4RF cetirizine 10 mg tablet 10 mg PO DAILY Patient Comments: TAKE ONE TABLET BY MOUTH EVERY DAY FOR ALLERGY symptoms fluticasone propionate 50 mcg/actuation spray,suspension 1 spray INTRANASAL DAILYP PRN (Reason: ALLERGIC RHINITIS) Patient Comments: INSTILL ONE SPRAY IN EACH NOSTRIL EVERY DAY NEEDED FOR allergic symptoms Rx Instructions: ADMINISTER INTO EACH NOSTRIL Discontinued chlorthalidone 25 mg tablet 25 mg PO DAILY Qty: 90 4RF losartan [Cozaar] 50 mg tablet 100 mg PO DAILY Qty: 90 4RF metoprolol succinate [Toprol XL] 50 mg tablet extended release 24 hr 100 mg PO DAILY Qty: 90 4RF famotidine [Pepcid] 40 mg tablet 40 mg PO DAILYP PRN (Reason: Acid Reflux) Problem Reconciliation Problems Reviewed?: Yes Patient Discharge Instructions Patient Instructions: DI for Urinary Tract Infection (UTI), DI for Acute Kidney Injury Print Language: Yakut Providers Primary Care Provider: Bob Weber Admit Provider: Bob June Attending Provider: Bob June
--- NOTE | 2024-08-25 14:09 | PC.NURSE ---
pt had a large bm, notified
--- NOTE | 2024-08-26 10:23 | SW/DCPLANNER ---
Spoke with patient on the phone. Patient stated that she is doing so much better. Patidaven stated that she was able to get her prescriptions filled before she left the hospital and she is aware of her upcoming appointments. Patient stated that she has no concerns or questions at this time. Js Menjivar
== END 2024-08-25 15:18 | disposition home or self-care (01) | DRG 683 ==
LOC: ER 19:14 → 2ND 08-24 00:04
PROVIDERS: Nurse Practitioner Family; Admitting Provider Student in an Organized Health Care Education/Training Program; Emergency Provider Emergency Medicine; PCP Internal Medicine; Visit Provider Student in an Organized Health Care Education/Training Program
DX: N17.9 Acute kidney failure, unspecified (principal); E87.1 Hypo-osmolality and hyponatremia; N39.0 Urinary tract infection, site not specified; N18.30 Chronic kidney disease, stage 3 unspecified; M10.9 Gout, unspecified; I95.1 Orthostatic hypotension; I12.9 Hypertensive chronic kidney disease with stage 1 through stage 4 chronic kidney disease, or unspecified chronic kidney disease; N18.9 Chronic kidney disease, unspecified; E11.9 Type 2 diabetes mellitus without complications; F41.9 Anxiety disorder, unspecified; F32.A Depression, unspecified
CPT/HCPCS: 36415; 71046; 74176; 80053; 81001; 82803; 83605; 83690; 83735; 83880; 84100; 84484; 85007; 85025; 87040; 87086; 87088; 87186; 93005; 93306; 97162; 97165; 99285; J0696; J1650; J2405; J7030; S0028

== ENCOUNTER 2024-08-31 10:11 | Outpatient (CLI) | payer MEDICARE, SELFPAY ==
--- NOTE | 2024-08-31 10:12 | US_ITS ---
FINAL REPORT TECHNIQUE: Ultrasound images of the kidneys and bladder were obtained. CLINICAL HISTORY: HTN COMPARISON: None FINDINGS: RENAL ULTRASOUND Ultrasound images of the kidneys were obtained. Limited images of the liver parenchyma demonstrate normal echogenicity. The spleen appears normal. The right kidney measures 10.5 cm in length. It is normal echogenicity. There is no hydronephrosis. The left kidney measures 11.2 cm in length. It is normal echogenicity. There is no hydronephrosis. IMPRESSION: Normal renal ultrasound without hydronephrosis. Reviewed, Interpreted and Dictated by Erich Reid III, MD Transcribed by Rissa Vazquez Authenticated and [facility]
--- NOTE | 2024-08-31 10:29 | CA_ITS ---
FINAL REPORT TECHNIQUE: Grayscale, color Doppler and duplex Doppler ultrasound of the kidneys, aorta and renal arteries was performed. Multiple velocities were measured. CLINICAL HISTORY: HTN FINDINGS: Aorta velocity: 159.4 cm/sec Right kidney: 9.6 cm. No evidence of hydronephrosis or mass. Right intrarenal RI: 0.74 Right renal artery velocity: 132 cm/sec. Right RAR (Renal artery-Aortic Ratio): 0.83 Left Kidney: 11.3 cm. No evidence of hydronephrosis or mass. Left intrarenal RI: 0.63 Left renal artery velocity: 112 cm/sec. Left RAR (Renal Artery-Aortic Ratio): 0.70 IMPRESSION: No evidence of significant renal artery stenosis. CT angiogram or postcontrast MR angiogram would be more sensitive for evaluation of possible renal artery stenosis. Reviewed, Interpreted and Dictated by Erich Reid III, MD Transcribed by Zonia Ocampo Authenticated and [facility]
== END 2024-08-31 23:59 | disposition home or self-care (01) ==
LOC: RAD 10:12
PROVIDERS: PCP Family Medicine; Visit Provider Family Medicine
DX: R06.09 Other forms of dyspnea (principal); I10 Essential (primary) hypertension; R55 Syncope and collapse
CPT/HCPCS: 76770; 93976

== ENCOUNTER 2024-09-06 11:16 | Outpatient (CLI) | payer MEDICARE, SELFPAY ==
[2024-09-06 18:52] LABS: Alanine Aminotransferase 28 U/L (12-78); Albumin Level 3.9 g/dl (3.5-5.0); Albumin/Globulin Ratio 1.4 (1.1-1.8); Alkaline Phosphatase 51 U/L (38-126); Anion Gap 12.8 mEq/L (5-15); Aspartate Amino Transferase 29 U/L (14-36); Bilirubin,Total 0.5 mg/dl (0.2-1.3); Blood Urea Nitrogen 12 mg/dl (7-17); Calcium 9.6 mg/dl (8.4-10.2); Carbon Dioxide 28 mmol/L (22.0-30.0); Chloride 103 mmol/L (98-107); Estimated Glomerular Filt Rate 62 ml/min (>60); GFR (African American) 74 ML/MIN (>60); Globulin 2.7 g/dL (1.3-3.2); Glucose 149 mg/dl (74-100); Potassium 4.8 mmoL/L (3.5-5.1); Sodium 139 mmol/L (136-145); Total Protein,Serum 6.6 g/dl (6.3-8.2)
[2024-09-06 19:14] LABS: Hemoglobin A1C 6.7 % (4.0-6.0)
== END 2024-09-06 23:59 | disposition home or self-care (01) ==
LOC: LAB.DROPOF 09-07 10:50
PROVIDERS: PCP Internal Medicine; Visit Provider Internal Medicine
DX: I10 Essential (primary) hypertension (principal); Z13.1 Encounter for screening for diabetes mellitus
CPT/HCPCS: 80053; 83036

== ENCOUNTER 2024-10-03 08:29 | Outpatient (CLI) | payer MEDICARE, SELFPAY ==
--- NOTE | 2024-10-03 08:34 | XR_ITS ---
FINAL REPORT CLINICAL HISTORY: Right hip Pain COMPARISON: None FINDINGS: RIGHT HIP Two views of the right hip and an AP pelvis view were obtained. There are post arthroplasty changes. The hardware is intact. There is no acute fracture. The joint spaces appear normal. The visualized bony structures are well aligned. No soft tissue abnormality is seen. IMPRESSION: No acute bony or hardware abnormality. Reviewed, Interpreted and Dictated by Delisa Figueroa MD Transcribed by Rissa Vazquez Authenticated and [facility]
== END 2024-10-03 23:59 | disposition home or self-care (01) ==
LOC: RAD 08:30
PROVIDERS: PCP Internal Medicine; Visit Provider Physician Assistant
DX: M25.551 Pain in right hip (principal)
CPT/HCPCS: 73502

== ENCOUNTER 2024-10-04 13:20 | Outpatient (CLI) | payer MEDICARE, SELFPAY ==
--- NOTE | 2024-10-04 13:24 | XR_ITS ---
FINAL REPORT CLINICAL HISTORY: swelling and pain of left ankle FINDINGS: Three views show no evidence of acute displaced fracture or dislocation of the visualized bony architecture. There are mild degenerative changes, greatest along the medial ankle mortise. There are moderate degenerative changes of the hindfoot and midfoot. IMPRESSION: Degenerative changes of the ankle and hindfoot. Reviewed, Interpreted and Dictated by Delisa Figueroa MD Transcribed by Liz Munoz Authenticated and [facility]
[2024-10-04 15:02] LABS: Microalbumin/Creatinine Ratio 12.4
[2024-10-04 15:06] LABS: Creatinine,Urine Random 257 mg/dL (Not Estab.)
[2024-10-04 15:08] LABS: Chol/HDL Ratio 3.9 (1-3.5); Cholesterol 117 mg/dl (140-200); HDL Cholesterol 30 mg/dl (40-60); Triglycerides 135 mg/dl (30-150); VLDL Cholesterol 27 mg/dL (0-40)
[2024-10-04 15:11] LABS: Erythrocyte Sedimentation Rate 52 mm/hr (0-30)
[2024-10-04 15:21] LABS: C-Reactive Protein 98.6 mg/L (0-4); Direct LDL Cholesterol 67.37 mg/dL (100-129)
== END 2024-10-04 23:59 | disposition home or self-care (01) ==
LOC: LAB 13:21
PROVIDERS: PCP Internal Medicine; Visit Provider Internal Medicine
DX: M25.572 Pain in left ankle and joints of left foot (principal); E78.2 Mixed hyperlipidemia; R73.03 Prediabetes; E83.42 Hypomagnesemia; I10 Essential (primary) hypertension
CPT/HCPCS: 36415; 73610; 80061; 82043; 82570; 85651; 86140

== ENCOUNTER 2024-10-11 12:04 | Outpatient (CLI) | payer MEDICARE, SELFPAY ==
[2024-10-11 15:38] VITALS: BMI 35.3
== END 2024-10-11 23:59 | disposition home or self-care (01) ==
LOC: DIETICIAN 12:04
PROVIDERS: PCP Internal Medicine; Visit Provider Internal Medicine
DX: E11.69 Type 2 diabetes mellitus with other specified complication (principal); E66.9 Obesity, unspecified
CPT/HCPCS: 97802

== ENCOUNTER 2025-01-02 13:52 | Outpatient (CLI) | payer MEDICARE, SELFPAY ==
[2025-01-02 17:04] LABS: Microscopic, Urine URINE MICROSCOPIC (MICROSCOPIC)
[2025-01-02 17:31] LABS: Basophils % 0.4 % (0.1-2.0); Eosinophils # 0.3 K/mm3 (0.0-0.4); Eosinophils % 3.1 % (0.1-12.0); Hematocrit 39.9 % (37.0-47.0); Hemoglobin 13.2 g/dL (12.2-16.2); Lymphocytes # 2.3 K/mm3 (0.7-4.5); Lymphocytes % 28.8 % (10-50); Mean Corpuscular HGB Conc 33.1 g/dL (31.8-35.4); Mean Corpuscular Hemoglobin 28.6 pg (27.0-31.2); Mean Corpuscular Volume 86.4 fl (81-99); Mean Platelet Volume 11.7 fl (7.4-10.4); Monocytes # 0.6 K/mm3 (0.1-1.0); Monocytes % 6.9 % (1.7-9.3); Neutrophils # 4.9 K/mm3 (1.8-7.8); Neutrophils % 60.6 % (37.0-80.0); Nucleated Red Blood Cells # 0 10^3/uL; Nucleated Red Blood Cells % 0 %; Platelet Count 278 K/mm3 (142-424); Red Blood Count 4.62 M/mm3 (4.20-5.40); Red Cell Distribution Width 14.5 % (11.5-17.5); White Blood Count 8.1 K/mm3 (4.8-10.8)
[2025-01-02 17:39] LABS: Appearance,Urine CLEAR (Clear); Bilirubin,Urine Negative (Negative); Blood, Urine Negative (Negative); Color,Urine YELLOW (Yellow); Glucose,Urine (UA) Negative (Negative); Ketones,Urine Negative (Negative); Leukocyte Esterase,Urine 3+ (Negative); Nitrate,Urine POSITIVE (Negative); PH,Urine 6.5 (5.0-8.5); Protein,Urine Negative (Negative); Urobilinogen,Urine 0.2 EU/dl (0.2)
[2025-01-02 17:47] LABS: Creatinine,Urine Random 68 mg/dL (Not Estab.); Microalbumin/Creatinine Ratio 32.7
[2025-01-02 18:08] LABS: Chloride 99 mmol/L (98-107)
[2025-01-02 18:09] LABS: Albumin Level 4.6 g/dl (3.5-5.0); Potassium 4.4 mmoL/L (3.5-5.1); Sodium 137 mmol/L (136-145)
[2025-01-02 18:12] LABS: Alanine Aminotransferase 32 U/L (12-78); Albumin/Globulin Ratio 1.4 (1.1-1.8); Alkaline Phosphatase 59 U/L (38-126); Anion Gap 19.4 mEq/L (5-15); Aspartate Amino Transferase 32 U/L (14-36); Blood Urea Nitrogen 19 mg/dl (7-17); Calcium 9.2 mg/dl (8.4-10.2); Carbon Dioxide 23 mmol/L (22.0-30.0); Cholesterol 116 mg/dl (140-200); Estimated Glomerular Filt Rate 44 ml/min (>60); GFR (African American) 53 ML/MIN (>60); Globulin 3.3 g/dL (1.3-3.2); Glucose 114 mg/dl (74-100); Iron 53 ug/dL (37-170); Magnesium 1.8 mg/dl (1.6-2.3); Total Protein,Serum 7.9 g/dl (6.3-8.2); Triglycerides 191 mg/dl (30-150); VLDL Cholesterol 38 mg/dL (0-40)
[2025-01-02 18:13] LABS: Chol/HDL Ratio 2.9 (1-3.5); HDL Cholesterol 40 mg/dl (40-60)
[2025-01-02 18:24] LABS: Direct LDL Cholesterol 53.31 mg/dL (100-129); Free T4 (Free Thyroxine) 1.07 ng/dl (0.78-2.19)
[2025-01-02 18:25] LABS: C-Reactive Protein 30.1 mg/L (0-4)
[2025-01-02 18:27] LABS: Total Iron Binding Capacity 315 ug/dL (265-497)
[2025-01-02 18:40] LABS: HIV Combo NEGATIVE (Negative)
[2025-01-02 19:01] LABS: Hepatitis C Ab Qual. W/ RFX NEGATIVE (Negative)
[2025-01-02 19:04] LABS: Thyroid Stimulating Hormone 2.91 uIU/mL (0.465-4.68); Uric Acid 9.7 mg/dl (2.5-6.2)
[2025-01-02 19:08] LABS: Ferritin 231 ng/ml (11.1-264)
[2025-01-02 19:22] LABS: 25-OH Vitamin D, Total 54.3 ng/mL (30-100)
[2025-01-02 20:12] LABS: Vitamin B12 201 pg/mL (239-931)
[2025-01-02 20:35] LABS: Erythrocyte Sedimentation Rate 17 mm/hr (0-30)
[2025-01-02 21:32] LABS: Hemoglobin A1C 5.9 % (4.0-6.0)
[2025-01-02 21:37] LABS: Bacteria,Urine 3+ /lpf
== END 2025-01-02 23:59 | disposition home or self-care (01) ==
LOC: LAB.DROPOF 01-03 15:45
PROVIDERS: PCP Nurse Practitioner Family; Visit Provider Nurse Practitioner Family
DX: E11.9 Type 2 diabetes mellitus without complications (principal); Z11.4 Encounter for screening for human immunodeficiency virus [HIV]; R53.83 Other fatigue; E11.69 Type 2 diabetes mellitus with other specified complication; E66.9 Obesity, unspecified; I10 Essential (primary) hypertension; Z68.32 Body mass index [BMI] 32.0-32.9, adult; M10.9 Gout, unspecified; Z11.59 Encounter for screening for other viral diseases; E78.2 Mixed hyperlipidemia; D64.9 Anemia, unspecified; E83.42 Hypomagnesemia
CPT/HCPCS: 80053; 80061; 81001; 82043; 82306; 82570; 82607; 82728; 83036; 83540; 83550; 83735; 84156; 84439; 84443; 84550; 85025; 85651; 86140; 86803; 87086; 87088; 87186; 87389

== ENCOUNTER 2025-01-09 13:17 | Outpatient (CLI) | payer MEDICARE, SELFPAY ==
--- NOTE | 2025-01-09 13:15 | XR_ITS ---
FINAL REPORT CLINICAL HISTORY: screening osteoporosis FINDINGS: Using L1-4, the bone mineral density of the spine is 1.202 g/cm2, corresponding to T-score of 1.4. Using the left hip, the bone mineral density of the femoral neck is 0.980 g/cm2, corresponding to a T-score of 1.2. Using the distal one third, the bone mineral density of the right forearm is 0.692 g/cm?, corresponding to a T-score of 0.0 IMPRESSION: Normal bone mineral density of the lumbar spine, left hip and right forearm. NOTE: T-score: Standard deviation compared with peak bone mass of young adult mean. *Following the recommendations of the International Society of Bone densitometry, classification of hip BMD is based on the lower of two T-scores; total hip or femoral neck. Reviewed, Interpreted and Dictated by Jenn Deleon MD Transcribed by Luz Trevino Authenticated and [facility]
== END 2025-01-09 23:59 | disposition home or self-care (01) ==
LOC: RAD 13:17
PROVIDERS: PCP Nurse Practitioner Family; Visit Provider Nurse Practitioner Family
DX: Z13.820 Encounter for screening for osteoporosis (principal)
CPT/HCPCS: 77080

== ENCOUNTER 2025-03-10 09:54 | Outpatient (CLI) | payer MEDICARE, SELFPAY ==
--- OUTSIDE RECORDS SUMMARY | 2025-03-10 09:56 | XMS_ITS | Clinical Summary ---
Author Organization [facility] Address [address] [place] [address] Care Team Providers Care Hourly Associate Name Role Phone Uche Shelton MD Primary Care Provider [phone] Allergies Active Allergy Reactions Criticality Noted Date [...] 68 08/31/2023 1:28 PM EST Temperature 36.6 C (97.9 F) 08/31/2023 1:28 PM EST Respiratory Rate 18 08/31/2023 1:28 PM EST [...] [facility]-Depression Screening 1951 [facility]-Hepatitis C Screening 1950 [facility]-Medicare Annual Wellness (AWV) 1950 [facility]-/Child/Adol SDOH Screenings 1950 [facility]- SDOH Screenings 1969 [facility]-Adult SDOH Screenings 1969 CT Colonography 1996 Colonoscopy 1996 FIT-DNA 1996 FIT 1996 FOBT 1996 Sigmoidoscopy 1996 [facility]-Colorectal Cancer Screening 1996 [facility]-DTaP,Tdap,and Td Vaccine s (1 - Tdap) 11/27/1996 11/26/1996 [facility]-Breast Cancer Screening 2001 [facility]-Zoster Vaccines (1 of 2) 2001 [facility]-Pneumococcal Vaccine: 50 + Years (2 of 2 - PPSV23) 09/30/2022 09/30/2021 [id number] Vaccine (2 - 20 24-25 season) 2024 08/29/2021 [facility]-Influenza Vaccine ([place] n Ended) 2025 [facility]-RSV Vaccine: 60+ Years o r (1 - 1-dose 75+ series) 2026 [facility]-Obesity Intervention Completed 08/31/2023 HPV Vaccines Aged Out No longer eligi ble based on patient's age to complete this topic [facility]-HIB Vaccines Aged Out No longer e [...] to complete this topic Insurance [place] SURESH [id number] [facility] MEDICARE Care Teams Hourly Associate Relationship Specialty Start Date End Date Uche Shelton MD [address] [facility] [address] [place] [id number] PCP - General 02/01/21
--- NOTE | 2025-03-10 10:00 | MM_ITS ---
PROCEDURE INFORMATION: Exam: MG Bilateral Screening 3D Mammography Exam date and time: 03/10/2025 10:16 AM Age: 74 years old Clinical indication: Screening examination TECHNIQUE: Imaging protocol: Bilateral Screening tomosynthesis and 2D mammography including computer-aided detection (CAD) when performed. COMPARISON: 1. MG MM DIG SCREENING MAMM BI W/CAD 03/09/2024 8:21 AM 2. MG MM DIG SCREENING MAMM BI W/CAD 02/02/2023 8:35 AM FINDINGS: MAMMOGRAPHY: Breast composition: There are scattered areas of fibroglandular density. Mass: None. Architectural distortion: None. Calcifications: No suspicious calcifications. Asymmetric density: None. Skin thickening: None. Axillary adenopathy: None. IMPRESSION: No mammographic evidence of malignancy. Annual screening is recommended unless otherwise clinically indicated. ASSESSMENT: BI-RADS Category 1: Negative.
== END 2025-03-10 23:59 | disposition home or self-care (01) ==
LOC: RAD 09:54
PROVIDERS: PCP Nurse Practitioner Family; Visit Provider Nurse Practitioner Family
DX: Z12.31 Encounter for screening mammogram for malignant neoplasm of breast (principal); R92.323 Mammographic fibroglandular density, bilateral breasts
CPT/HCPCS: 77063; 77067

== ENCOUNTER 2025-03-27 08:58 | Day surgery (SDC) | payer MEDICARE, SELFPAY ==
[2025-03-21 12:20] VITALS: BMI 32.7
[2025-03-27 10:11] VITALS: BP 122/70; PULSE 62; RESP 17; TEMP 36.2; O2SAT 96
[2025-03-27 10:14] LABS: POC Glucose,Bedside 150 (70-110)
[2025-03-27] MEDS: LACTATED RINGERS 1000ML 1,000 ML 50 ML IV (10:20)
--- NOTE | 2025-03-27 10:30 | EXP.ANES.CKL ---
[facility] Disclaimer: The information contained in this section may have been updated after the patient was seen, as this information can be updated by other users. Medical History ISIDRO (acute kidney injury) Tachycardia Right hip pain Left ankle pain Gout attack Hypomagnesemia Pre-diabetes Fibroid uterus Dermoid Viral illness SEPULVEDA (dyspnea on exertion) Elevated blood pressure reading in office with diagnosis of hypertension Uncontrolled hypertension Pre-syncope Osteoporosis Neck pain Dehydration Myofascial pain Electrolyte abnormality Acute UTI General weakness Falls frequently ISIDRO (acute kidney injury) Facet arthropathy, cervical Degenerative disc disease, cervical Cervical arthritis Erosive osteoarthritis of multiple sites Exposure to COVID-19 virus Diabetes mellitus, type 2 Diabetes mellitus, type 2 Depression Anxiety Essential hypertension Surgical History History of total right hip arthroplasty History of 2 sections Family History Other Unknown family medical history Social History Smoking Status: Never smoker alcohol intake: never substance use type: denies use current occupational status: other Travel in the last 8 weeks?: None household members: family housing: house Have you lived/traveled outside US in past 30 days?: No Contact w/someone who lives/traveled outside US past 30 days?: No Exposure to someone with infectious disease in past 14 days?: No Do you have a fever (greater than 100.4 F or 38 C)?: No Have you tested positive for COVID-19?: No Exposed to someone with COVID-19 in past 14 days?: No Do you have a sore throat?: No Do you have a cough?: No Do you have any weakness?: No Do you have any diarrhea?: No Are you experiencing any unusual bleeding?: No Do you have any muscle aches/pain?: No Do you have any abdominal pain?: No Are you experiencing loss of taste or smell?: No [facility] Anesthesia Checklist Patient Identification Patient Identification: Arm Band and Verbal (Name & ) Structural Data Admitted From: Home Planned Operative Procedure/s: colonscopy Consent for Planned Operative Procedure(s) Verified: Yes Verified Documents: Surgical Consent and History and Physical NPO Status Verified Time NPO: 00:00 Additional verifications Anesthesia Reactions: No Airway Assessment Mallampati Score:: Class II Dentition: Partials Neurological Assessment Level of Consciousness: Awake, Alert and Appropriate Anesthesia Plan Anesthesia Risk discussed: Yes Anesthesia Plan: Verified ASA Class: III Anesthesia Type: MAC
--- NOTE | 2025-03-27 10:55 | EXP.HP ---
History of Present Illness *Admission Date: 03/27/25 *Reason for visit:: Screening for colon cancer *History of present illness: Mrs. Munson is a 74-year-old female who is here for initial screening colonoscopy. The examination is deemed medically necessary for screening colonoscopy. The patient has been seen, interviewed and examined prior to the procedure by both myself and the anesthesia provider. [facility] Disclaimer: The information contained in this section may have been updated after the patient was seen, as this information can be updated by other users. Medical History ISIDRO (acute kidney injury) Tachycardia Right hip pain Left ankle pain Gout attack Hypomagnesemia Pre-diabetes Fibroid uterus Dermoid Viral illness SEPULVEDA (dyspnea on exertion) Elevated blood pressure reading in office with diagnosis of hypertension Uncontrolled hypertension Pre-syncope Osteoporosis Neck pain Dehydration Myofascial pain Electrolyte abnormality Acute UTI General weakness Falls frequently ISIDRO (acute kidney injury) Facet arthropathy, cervical Degenerative disc disease, cervical Cervical arthritis Erosive osteoarthritis of multiple sites Exposure to COVID-19 virus Diabetes mellitus, type 2 Diabetes mellitus, type 2 Depression Anxiety Essential hypertension Surgical History History of total right hip arthroplasty History of 2 sections Family History Other Unknown family medical history Social History Smoking Status: Never smoker alcohol intake: never substance use type: denies use current occupational status: other Travel in the last 8 weeks?: None household members: family housing: house Have you lived/traveled outside US in past 30 days?: No Contact w/someone who lives/traveled outside US past 30 days?: No Exposure to someone with infectious disease in past 14 days?: No Do you have a fever (greater than 100.4 F or 38 C)?: No Have you tested positive for COVID-19?: No Exposed to someone with COVID-19 in past 14 days?: No Do you have a sore throat?: No Do you have a cough?: No Do you have any weakness?: No Do you have any diarrhea?: No Are you experiencing any unusual bleeding?: No Do you have any muscle aches/pain?: No Do you have any abdominal pain?: No Are you experiencing loss of taste or smell?: No Other Medical History Have you received the Flu Vaccine for this season: No Have you received the Pneumonia Vaccine: Yes Review of Systems Review of Systems Review of systems (narrative): Negative *Cardiovascular Comments: Negative *Gastrointestinal Comments: Negative *Genitourinary Comments: Negative *Musculoskeletal Comments: Negative *Neurologic Comments: Negative Meds Home Medications and Allergies Home Medications ?Medication ?Instructions ?Recorded ?Confirmed ?Type fluticasone propionate 50 1 spray intranasal DAILYP PRN 08/24/24 03/27/25 History mcg/actuation nasal ALLERGIC RHINITIS spray,suspension magnesium 200 mg tablet 200 mg PO DAILY 09/06/24 03/27/25 History metoprolol succinate 50 mg 100 mg (2 x 50 mg) PO DAILY #180 12/27/24 03/27/25 Rx tablet,extended release 24 hr tabs (Toprol XL) aspirin 81 mg tablet,delayed 81 mg PO DAILY #90 tabs 01/02/25 03/27/25 Rx release (Adult Aspirin Regimen) blood sugar diagnostic (FreeStyle #100 ea 01/02/25 03/21/25 Rx Lite Strips) blood-glucose meter (FreeStyle #1 ea 01/02/25 03/21/25 Rx Lite Meter kit) cetirizine 10 mg tablet 10 mg PO DAILY PRN . 01/02/25 03/27/25 History lancets 28 gauge (FreeStyle #100 ea 01/02/25 03/21/25 Rx Lancets) losartan 100 mg tablet 100 mg PO DAILY #90 tabs 01/02/25 03/27/25 Rx metformin 500 mg tablet 500 mg PO BID #180 tabs 01/02/25 03/27/25 Rx pantoprazole 40 mg tablet,delayed 40 mg PO DAILY 01/02/25 03/27/25 History release simvastatin 10 mg tablet 10 mg PO QHS #90 tabs 01/02/25 03/27/25 Rx febuxostat 40 mg tablet (Uloric) 40 mg PO DAILY #90 tabs 01/03/25 03/27/25 Rx finerenone 10 mg tablet (Kerendia) 10 mg PO DAILY #90 tabs 01/03/25 03/27/25 Rx mecobalamin (vitamin B12) 1,000 1,000 mcg PO DAILY #90 tabs 01/03/25 03/27/25 Rx mcg chewable tablet colchicine 0.6 mg tablet 0.6 mg PO BID For gout flare #60 01/16/25 03/27/25 Rx tabs ciclopirox 8 % topical solution 1 applic topical DAILY toenail 02/08/25 03/27/25 Rx fungus 3 months #6.6 mL New Prescriptions to Start Prescriptions: Allergies Allergy/AdvReac Type Severity Reaction Status Date / Time Sulfa (Sulfonamide Allergy Intermediate Hives Verified 03/27/25 10:01 Antibiotics) lisinopril AdvReac Intermediate Cough Verified 03/27/25 10:01 Exam Data for Last 24 hours Vital signs and Labs for Last 24 Hours: Temp Pulse Resp BP Pulse Ox O2 Del Method 97.2 F L 62 17 122/70 96 Room Air 03/27/25 10:11 03/27/25 10:11 03/27/25 10:11 03/27/25 10:11 03/27/25 10:11 03/27/25 10:11 Laboratory Results - last 24 hr 03/27/25 10:01: POC Glucose 150 H *Routine HEENT Exam Head: Present normocephalic Eye: Present EOMI and PERRL ENT: Present mucous membranes moist *Routine Neck Exam Neck: Present supple *Routine Respiratory Exam Respiratory: Present CTA bilaterally *Routine Cardiovascular Exam Cardiovascular: Present RRR *Routine Abdominal Exam Abdominal: Present soft and normoactive bowel sounds; Absent tenderness *Routine Rectal Exam Rectal:: deferred *Routine Genitalia Exam Genitalia:: deferred *Routine Extremities Exam Extremities: Absent cyanosis, clubbing or edema *Routine Skin Exam Skin: Present warm; Absent rash *Routine Neurological Exam Neurological: Present alert and oriented X3 Assessment and Plan *Assessment and plan (1) Screening for colon cancer: Status: Acute Category: Medical Code(s): Z12.11 - Encounter for screening for malignant neoplasm of colon Plan A/P: 1. Screening for colon cancer is the preprocedural diagnosis. The patient will be anesthetized/sedated using MAC sedation. The patient has been seen and examined. Cardiac and lung assessment prior to the examination is stable. Proceed with planned screening colonoscopy.
--- NOTE | 2025-03-27 11:02 | HMH.PROCNOTE ---
[facility] Procedure Note Date: 03/27/25 Time: 11:19 Procedure Note:: Colonoscopy Procedure Report: Colonoscopy with cold snare polypectomy Endoscopist: Efrain Lim II, MD Referring physician: CHRISTOPHER Pyle Date of Procedure: March 27, 2025 Equipment: Olympus 190 variable stiffness pediatric colonoscope Sedation: MAC sedation Indication: Mrs. Munson is a 74-year-old female who is here for initial screening colonoscopy. The patient has had regular Cologuard testing and her last Cologuard test in October 2021 was negative. The patient reports no abdominal pain, weight loss, change in her bowel habits or rectal bleeding. She reports no family history of colon cancer. Her bowel function is more regular because of her gout medication (colchicine) and one of her diabetic medications. Procedure: Prior to the procedure, a history and physical exam was performed, and patient's medications and allergies were reviewed. The risks, benefits and alternatives of the sedation and procedure were discussed with the patient. All questions were answered and informed consent was obtained. The patient was brought to the procedure room. Patient identification and proposed procedure were verified by the physician and the nurse. The patient was placed in a left lateral decubitus position and the scope was passed under direct vision. Throughout the procedure, the patient's blood pressure, pulse, and oxygen saturations were monitored continuously. The colonoscopy was accomplished without difficulty. The patient tolerated the procedure well. Findings: On digital rectal examination there was normal rectal tone. There were no external hemorrhoids. The colonoscope was introduced through the anal canal to the rectum and advanced to the cecum. The ileocecal valve and appendiceal orifice were identified. The scope was advanced a short distance into the ileum which appeared grossly normal. The scope was then withdrawn into the colon. There was a single diminutive 3 mm polyp in the cecum that was removed via cold snare polypectomy. The remaining cecum, ascending, transverse, descending, sigmoid and rectum were grossly normal. There were no other mucosal abnormalities identified. Upon retroflexion within the rectum there were grade 1 internal hemorrhoids. The preparation was excellent throughout with Adams Preparation Score of 9. The cecal time was 11 minutes. Impression: 1. Diminutive 3 mm cecal polyp Plan: I will follow-up the polyp histology. The patient should not require any further preventive/screening colonoscopy.
[2025-03-27 11:24] VITALS: BP 94/41; PULSE 59; RESP 16; TEMP 36.6; O2SAT 95
[2025-03-27 11:34] VITALS: BP 99/52; PULSE 65; RESP 15; TEMP 36.6; O2SAT 98
[2025-03-27 11:44] VITALS: BP 107/54; PULSE 56; RESP 16; O2SAT 99
[2025-03-27 11:54] VITALS: BP 100/61; PULSE 53; RESP 16; O2SAT 100
== END 2025-03-27 11:54 | disposition home or self-care (01) ==
PROVIDERS: Visit Provider Internal Medicine Gastroenterology
PROC: 0DJD8ZZ Inspection of Lower Intestinal Tract, Via Natural or Artificial Opening Endoscopic (ICD-10-PCS; CPT 45378; principal; 2025-03-27 10:30)
DX: Z12.11 Encounter for screening for malignant neoplasm of colon (principal); K63.5 Polyp of colon; K64.0 First degree hemorrhoids; I10 Essential (primary) hypertension; R29.6 Repeated falls; M10.9 Gout, unspecified; M81.0 Age-related osteoporosis without current pathological fracture; F32.A Depression, unspecified; F41.9 Anxiety disorder, unspecified; E11.9 Type 2 diabetes mellitus without complications; Z79.899 Other long term (current) drug therapy; Z79.82 Long term (current) use of aspirin; Z79.84 Long term (current) use of oral hypoglycemic drugs; Z88.8 Allergy status to other drugs, medicaments and biological substances; Z88.2 Allergy status to sulfonamides
CPT/HCPCS: 45385; 82962; 88305; J2003; J2704; J7120

== ENCOUNTER 2025-04-03 10:58 | Outpatient (CLI) | payer MEDICARE, SELFPAY ==
[2025-04-03 14:05] LABS: Microscopic, Urine URINE MICROSCOPIC (MICROSCOPIC)
[2025-04-03 16:35] LABS: Bilirubin,Urine Negative (Negative); Color,Urine YELLOW (Yellow); Glucose,Urine (UA) Negative (Negative); Ketones,Urine Negative (Negative); Leukocyte Esterase,Urine 1+ (Negative); PH,Urine 8.0 (5.0-8.5); Protein,Urine Negative (Negative); Specific Gravity, Urine 1.010 (1.005-1.030); Urobilinogen,Urine 0.2 EU/dl (0.2)
[2025-04-03 16:37] LABS: Hematocrit 39.3 % (37.0-47.0); Hemoglobin 12.9 g/dL (12.2-16.2); Immature Granulocytes % 0.3 %; Mean Corpuscular HGB Conc 32.8 g/dL (31.8-35.4); Mean Corpuscular Hemoglobin 30.2 pg (27.0-31.2); Mean Corpuscular Volume 92.0 fl (81-99); Nucleated Red Blood Cells % 0 %; Platelet Count 288 K/mm3 (142-424); Red Blood Count 4.27 M/mm3 (4.20-5.40); Red Cell Distribution Width-SD 45.1 fL; White Blood Count 6.4 K/mm3 (4.8-10.8)
[2025-04-03 17:04] LABS: Bacteria,Urine 2+ /lpf; Squamous Epithelial Cell,Urine Occasional #/hpf (0-5); WBC,Urine 20-50 #/hpf (0-3)
[2025-04-03 17:08] LABS: Alanine Aminotransferase 30 U/L (12-78); Albumin Level 4.8 g/dl (3.5-5.0); Albumin/Globulin Ratio 1.7 (1.1-1.8); Alkaline Phosphatase 51 U/L (38-126); Anion Gap 22.2 mEq/L (5-15); Aspartate Amino Transferase 32 U/L (14-36); Bilirubin,Total 0.7 mg/dl (0.2-1.3); Blood Urea Nitrogen 20 mg/dl (7-17); Calcium 10.1 mg/dl (8.4-10.2); Carbon Dioxide 28 mmol/L (22.0-30.0); Chloride 92 mmol/L (98-107); Cholesterol 101 mg/dl (140-200); Creatinine,Serum 1.30 mg/dl (0.52-1.04); Estimated Glomerular Filt Rate 40 ml/min (>60); GFR (African American) 49 ML/MIN (>60); Globulin 2.8 g/dL (1.3-3.2); Glucose 116 mg/dl (74-100); HDL Cholesterol 32 mg/dl (40-60); Magnesium 1.8 mg/dl (1.6-2.3); Phosphorous 3.9 mg/dl (2.5-4.5); Potassium 5.2 mmoL/L (3.5-5.1); Sodium 137 mmol/L (136-145); Total Protein,Serum 7.6 g/dl (6.3-8.2); Triglycerides 197 mg/dl (30-150); Uric Acid 5.0 mg/dl (2.5-6.2)
[2025-04-03 17:19] LABS: C-Reactive Protein 2.6 mg/L (0-4)
[2025-04-03 18:09] LABS: Vitamin B12 > 1000 pg/mL (239-931)
[2025-04-03 19:14] LABS: Hemoglobin A1C 6.5 % (4.0-6.0)
--- OUTSIDE RECORDS SUMMARY | 2025-04-04 12:30 | XMS_ITS | Clinical Summary ---
Author Organization [facility] Address [address] [place] [address] Care Team Providers Care Telephone Operator Chief Name Role Phone Uche Shelton MD Primary Care Provider [phone] Allergies Active Allergy Reactions Criticality Noted Date [...] (2 of 2 - PPSV23) 09/30/2022 09/30/2021 [id number] Vaccine (2 - 20 24-25 season) 2024 08/29/2021 UKY-Influenza Vaccine (#1) 2025 UKY-RSV Vaccine: 60+ Years o r [...] to complete this topic Insurance [place] [id number] [facility] MEDICARE Care Teams Telephone Operator Chief Relationship Specialty Start Date End Date Uche Shelton MD [address] [facility] [address] [place] [address] PCP - General 02/01/21
== END 2025-04-03 23:59 | disposition home or self-care (01) ==
LOC: LAB.DROPOF 04-04 12:29
PROVIDERS: PCP Nurse Practitioner Family; Visit Provider Nurse Practitioner Family
DX: D64.9 Anemia, unspecified (principal); M10.9 Gout, unspecified; E83.42 Hypomagnesemia; E11.40 Type 2 diabetes mellitus with diabetic neuropathy, unspecified; E11.69 Type 2 diabetes mellitus with other specified complication; E66.9 Obesity, unspecified; I12.9 Hypertensive chronic kidney disease with stage 1 through stage 4 chronic kidney disease, or unspecified chronic kidney disease; N18.31 Chronic kidney disease, stage 3a; K21.9 Gastro-esophageal reflux disease without esophagitis; F32.A Depression, unspecified; F41.9 Anxiety disorder, unspecified; E53.8 Deficiency of other specified B group vitamins; M79.604 Pain in right leg; M79.605 Pain in left leg; M25.551 Pain in right hip; G89.29 Other chronic pain; R41.3 Other amnesia; E78.5 Hyperlipidemia, unspecified
CPT/HCPCS: 80053; 80061; 81001; 82043; 82570; 82607; 83036; 83735; 84100; 84156; 84550; 85025; 85651; 86140; 87086; 87088; 87186

== ENCOUNTER 2025-04-07 08:54 | Outpatient (CLI) | payer MEDICARE, SELFPAY ==
--- OUTSIDE RECORDS SUMMARY | 2025-04-07 08:57 | XMS_ITS | Clinical Summary ---
Author Organization [facility] Address [address] [place] [address] Care Team Providers Care Medical Office Receptionist Name Role Phone Uche Shelton MD Primary Care Provider [phone] Allergies Active Allergy Reactions Criticality Noted Date [...] (2 of 2 - PPSV23) 09/30/2022 09/30/2021 [id number] Vaccine (2 - 20 24-25 season) 2024 [...] to complete this topic Insurance [place] [id number] [facility] MEDICARE Care Teams Medical Office Receptionist Relationship Specialty Start Date End Date Uche Shelton MD [address] [facility] [address] [place] [address] PCP - General 02/01/21
--- NOTE | 2025-04-07 09:00 | US_ITS ---
FINAL REPORT CLINICAL HISTORY: BLE claudication COMPARISON: None FINDINGS: ANKLE-BRACHIAL PRESSURE INDICES Pressure indices are as follows: RIGHT LOWER EXTREMITY: Ankle-brachial pressure index: 1.13 Comments: Normal LEFT LOWER EXTREMITY: Ankle-brachial pressure index: 1.0 Comments: In the left posterior tibial artery the pressure index is mildly diminished, that could be suggestive of isolated peripheral vascular disease of the distal posterior tibial artery. CONCLUSION: No evidence of significant obstructive peripheral vascular disease of the lower extremities Reviewed, Interpreted and Dictated by Delisa Figueroa MD Transcribed by Katarina Phillips Authenticated and [facility]
--- NOTE | 2025-04-07 09:30 | CA_ITS ---
FINAL REPORT CLINICAL HISTORY: PAIN LEGS COMPARISON: None FINDINGS: Multiple transverse and longitudinal scans were performed of the femoral popliteal deep venous system, with augmentation and compression maneuvers. Normal phasic flow was noted in the visualized deep venous system. No intraluminal increased echogenicity is noted to suggest thrombus. There is normal compression and augmentation of the venous structures. No abnormal venous collaterals are seen. IMPRESSION: No evidence of deep venous thrombosis of the bilateral lower extremities. Reviewed, Interpreted and Dictated by Delisa Figueroa MD Transcribed by Katarina Phillips Authenticated and [facility]
== END 2025-04-07 23:59 | disposition home or self-care (01) ==
LOC: RT 08:55
PROVIDERS: PCP Nurse Practitioner Family; Visit Provider Nurse Practitioner Family
DX: M10.9 Gout, unspecified (principal); E11.40 Type 2 diabetes mellitus with diabetic neuropathy, unspecified; E11.69 Type 2 diabetes mellitus with other specified complication; E66.9 Obesity, unspecified; E83.42 Hypomagnesemia; E78.5 Hyperlipidemia, unspecified; I12.9 Hypertensive chronic kidney disease with stage 1 through stage 4 chronic kidney disease, or unspecified chronic kidney disease; N18.31 Chronic kidney disease, stage 3a; D64.9 Anemia, unspecified; K21.9 Gastro-esophageal reflux disease without esophagitis; F32.A Depression, unspecified; F41.9 Anxiety disorder, unspecified; E53.8 Deficiency of other specified B group vitamins; M79.604 Pain in right leg; M79.605 Pain in left leg; M25.551 Pain in right hip; G89.29 Other chronic pain; I73.9 Peripheral vascular disease, unspecified
CPT/HCPCS: 93923; 93970

== ENCOUNTER 2025-07-03 17:04 | Outpatient (CLI) | payer MEDICARE, SELFPAY ==
[2025-07-03 14:22] LABS: Anion Gap 18.7 mEq/L (5-15); Blood Urea Nitrogen 23 mg/dl (7-17); Calcium 10.0 mg/dl (8.4-10.2); Carbon Dioxide 25 mmol/L (22.0-30.0); Chloride 100 mmol/L (98-107); Creatinine,Serum 1.30 mg/dl (0.52-1.04); Estimated Glomerular Filt Rate 40 ml/min (>60); GFR (African American) 49 ML/MIN (>60); Glucose 110 mg/dl (74-100); Potassium 4.7 mmoL/L (3.5-5.1); Sodium 139 mmol/L (136-145)
--- OUTSIDE RECORDS SUMMARY | 2025-07-04 17:09 | XMS_ITS | Clinical Summary ---
Author Organization [facility] Address [address] [place] [address] Care Team Providers Care Program Management Manager Name Role Phone Uche Shelton MD Primary Care Provider [phone] Allergies Active Allergy Reactions Criticality Noted Date [...] 50 + Years (2 of 2 - PCV20 or PCV21) 09/30/2022 09/30/2021 [id number] Vaccine (2 - 20 25-26 season) 2025 08/29/2021 UKY-Influenza Vaccine (#1) 2025 UKY-RSV Vaccine: [...] to complete this topic Insurance [place] S[place] [id number] [facility] MEDICARE Care Teams Program Management Manager Relationship Specialty Start Date End Date Uche Shelton MD [address] [facility] [address] [place] [address] PCP - General 02/01/21
== END 2025-07-03 23:59 | disposition home or self-care (01) ==
LOC: LAB.DROPOF 07-04 17:04
PROVIDERS: PCP Nurse Practitioner Family; Visit Provider Nurse Practitioner Family
DX: N18.31 Chronic kidney disease, stage 3a (principal); E11.42 Type 2 diabetes mellitus with diabetic polyneuropathy; E11.69 Type 2 diabetes mellitus with other specified complication; E66.9 Obesity, unspecified
CPT/HCPCS: 80048